=== PATIENT | male | born 1985 | race American Indian/Alaskan Native ===

== ENCOUNTER 2018-02-09 13:29 | Emergency (ER) | payer SELFPAY ==
[~2018-02-09 13:29] MED LIST: AMIDATE IV ONE; QUELICIN IV ONE
[2018-02-09] MEDS ORDERED: KEPPRA 1,000 MG/NS 0.75% 100ML 1,000 MG/100 ML BAG IV ONE ×2 (13:38→13:48)
[2018-02-09] MEDS ORDERED: NACL 0.9% 1000 ML 1,000 ML IV ONE ×2 (13:43→17:06)
[2018-02-09] MEDS ORDERED: VASELINE LIP THERAPY TP PRN (13:46)
[2018-02-09] MEDS ORDERED: ARTIFICIAL TEARS OPHTH OINT OU PRN (13:46)
[2018-02-09] MEDS ORDERED: ATIVAN ONE (14:00)
[2018-02-09] MEDS ORDERED: ATIVAN 100 MG in NACL 0.9% 50 ML, VIAFLEX EMPTY CONTAINER 0 ML IV SCH (14:00)
[2018-02-09] MEDS ORDERED: ATIVAN IM ONE (14:10)
[2018-02-09] MEDS ORDERED: ATIVAN IV ONE (14:17)
--- NOTE | 2018-02-09 14:36 | Emergency Department Report ---
ED Seizure HPI - General Stated Complaint: SEIZURE Time Seen by Provider: 02/09/18 13:43 Source: patient Mode of arrival: Stretcher Limitations: Other - History of Present Illness Initial Comments: 32-year-old male was called into the emergency department for persistent seizures by network development coordinator staff. He did not respond to Ativan. Medic states that the patient has been previously intubated for status epilepticus. In the field his sugar, pulse oximetry and blood pressure were within acceptable limits. The patient had a nasal trumpet placed and was transported on a nonrebreather mask. Paramedics did not report to me significant hypoxia. There was no known history of trauma. A family member has now arrived to give additional history. He states that the patient has been intubated at least 3 times under similar circumstances. MD Complaint: seizure -: Sudden Description of Episode: loss of consciousness -: minutes(s) (possibly an hour) Witnessed:: Yes Trauma: No Seizure History: known seizure disorder, history of non-compliance Possible Precipitating Event: other (noncompliance) Associated Symptoms: other (unable to obtain) Treatments Prior to Arrival: benzodiazepines, airway maneuvers, other (Ativan) - Related Data Allergies Allergy/AdvReac Type Severity Reaction Status Date / Time No Known Allergies Allergy Verified 02/09/18 14:00 ED Review of Systems ROS: Stated complaint: SEIZURE Other details as noted in HPI Comment: Unobtainable due to pts medical conditions ED Past Medical Hx - Past Medical History Previous Medical History?: Yes Hx Seizures: Yes Additional medical history: Multiple Sclerosis - Surgical History Past Surgical History?: Yes Additional Surgical History: Mass on chest per father - Social History Smoking Status: Never Smoker Substance Use Type: Marijuana ED Physical Exam - General Limitations: Other (active seizure) General appearance: obtunded, other (patient's airway required protection, significant secretions was suctioned) - Head Head exam: Present: atraumatic - Eye Eye exam: Absent: scleral icterus Pupils: Present: miosis - ENT ENT exam: Present: other (no gross trauma noted, some loose dentition) - Neck Neck exam: Present: normal inspection. Absent: meningismus - Respiratory Respiratory exam: Present: rhonchi (bilaterally left greater than right) - Cardiovascular Cardiovascular Exam: Present: tachycardia. Absent: systolic murmur, diastolic murmur - GI/Abdominal GI/Abdominal exam: Present: soft. Absent: distended, organomegaly - Extremities Exam Extremities exam: Present: normal inspection - Back Exam Back exam: Present: other (only partially visualized) - Neurological Exam Neurological exam: Present: other (activity ictus) - Psychiatric Psychiatric exam: Present: other (not applicable) - Skin Skin exam: Present: diaphoretic ED Course Vital Signs 02/09/18 02/09/18 02/09/18 13:46 14:03 15:35 Temperature 99 F Pulse Rate 140 H 146 H 145 H Respiratory 18 Rate Blood Pressure 123/81 118/68 O2 Sat by Pulse 100 100 100 Oximetry - Reevaluation(s) Reevaluation #1: The patient was still actively seizing on arrival. He was intubated using RSI for status epilepticus as well as airway protection. This was done after one attempt without difficulty. He was given Ativan and placed on an Ativan drip. He was given a gram of Keppra. The seizures didn't stop. He is currently intubated and will remain as such pending ICU placement. A CT of the head was reviewed in real-time by me and later interpreted by the radiologist as showing no acute process. Dr. Conroy of the hospitalist service was notified of the admission. 02/09/18 15:00 Reevaluation #2: History was obtained from the patient's father. Apparently the patient's last intubation was about 5 months ago in [place]. The father thinks it was for 2 days. The patient has been noncompliant with his medicine for more 3 weeks according to the father. He has been well. He has not been complaining of headaches or change in his vision. However he has had a diagnosis of local sclerosis since he was about 18. The father states that he thinks that the multiple sclerosis has been quiet for the last 4-5 years. However, patient has been on medicine for multiple sclerosis in the past. He is not currently on steroids. Father doesn't identify any diagnosis of active and ms during the last intubation and seizure breakthrough. However, he did have prolonged intubation for at least 2 days. Further history is not available and the patient's neurologist is in [facility]. I spoke with Dr. Christiano Tobar at the [facility]. He suggested a transfer to [place] [facility] ICU for continuous EEG monitoring. The patient was noted to be clamping down on his tube. I believe he still has active icterus. His pupils are somewhat myotic and his gaze is fixed. He does have occasional clonic movement. 02/09/18 15:51 Reevaluation #3: I spoke with Dr. Winchester neuro [employer] school home economics teacher at every. He was kind to accept the patient for transfer. The patient will be transferred via helicopter to either [place] or [facility]. He is given additional Keppra. Propofol was added. His respiratory acidosis is being addressed. A repeat blood gas will be obtained. 02/09/18 16:07 ED Medical Decision Making - Lab Data Result diagrams: 02/09/18 14:09 02/09/18 14:09 Laboratory Results - last 24 hr 02/09/18 13:48 POC Glucose 141 H Laboratory Results - last 24 hr 02/09/18 02/09/18 13:48 14:09 WBC 12.7 H RBC 4.95 Hgb 14.2 Hct 43.6 MCV 88 MCH 29 MCHC 33 RDW 14.3 Plt Count 187 Lymph % (Auto) 8.9 L Cottle % (Auto) 7.8 H Eos % (Auto) 0.2 Baso % (Auto) 0.1 Lymph # 1.1 L Cottle # 1.0 H Eos # 0.0 Baso # 0.0 Add Manual Diff Complete Seg Neutrophils % 83.0 H Seg Neutrophils # 10.6 H POC Glucose 141 H Laboratory Results - last 24 hr 02/09/18 02/09/18 02/09/18 13:48 14:09 14:09 WBC 12.7 H RBC 4.95 Hgb 14.2 Hct 43.6 MCV 88 MCH 29 MCHC 33 RDW 14.3 Plt Count 187 Lymph % (Auto) 8.9 L Cottle % (Auto) 7.8 H Eos % (Auto) 0.2 Baso % (Auto) 0.1 Lymph # 1.1 L Cottle # 1.0 H Eos # 0.0 Baso # 0.0 Add Manual Diff Complete Seg Neutrophils % 83.0 H Seg Neutrophils # 10.6 H PT INR APTT Thrombin Time Sodium Potassium Chloride Carbon Dioxide Anion Gap BUN Creatinine Estimated GFR BUN/Creatinine Ratio Glucose POC Glucose 141 H Calcium Magnesium Total Bilirubin Direct Bilirubin Indirect Bilirubin AST ALT Alkaline Phosphatase Total Creatine Kinase 150 CK-MB (CK-2) 2.3 CK-MB (CK-2) Rel Index 1.5 Troponin T < 0.010 NT-Pro-B Natriuret Pep Total Protein Albumin Albumin/Globulin Ratio Urine Color Urine Turbidity Urine pH Ur Specific [place] Urine Protein Urine Glucose (UA) Urine Ketones Urine Blood Urine Nitrite Urine Bilirubin Urine Urobilinogen Ur Leukocyte Esterase Urine WBC (Auto) Urine RBC (Auto) U Epithel Cells (Auto) Granular Casts Urine Opiates Screen Urine Methadone Screen Ur Barbiturates Screen Ur Phencyclidine Scrn Ur Amphetamines Screen U Benzodiazepines Scrn Urine Cocaine Screen U Marijuana (THC) Screen Plasma/Serum Alcohol 02/09/18 02/09/18 02/09/18 14:09 14:09 14:09 WBC RBC Hgb Hct MCV MCH MCHC RDW Plt Count Lymph % (Auto) Cottle % (Auto) Eos % (Auto) Baso % (Auto) Lymph # Cottle # Eos # Baso # Add Manual Diff Seg Neutrophils % Seg Neutrophils # PT INR APTT Thrombin Time Sodium 141 Potassium 4.0 Chloride 104.2 Carbon Dioxide 21 L Anion Gap 20 BUN 8 L Creatinine 0.6 L Estimated GFR > 60 BUN/Creatinine Ratio 13 Glucose 107 H POC Glucose Calcium 8.7 Magnesium 2.20 Total Bilirubin 0.70 Direct Bilirubin < 0.2 Indirect Bilirubin 0.5 AST 18 ALT 8 Alkaline Phosphatase 57 Total Creatine Kinase CK-MB (CK-2) CK-MB (CK-2) Rel Index Troponin T NT-Pro-B Natriuret Pep 81.18 Total Protein 7.5 Albumin 4.1 Albumin/Globulin Ratio 1.2 Urine Color Urine Turbidity Urine pH Ur Specific [place] Urine Protein Urine Glucose (UA) Urine Ketones Urine Blood Urine Nitrite Urine Bilirubin Urine Urobilinogen Ur Leukocyte Esterase Urine WBC (Auto) Urine RBC (Auto) U Epithel Cells (Auto) Granular Casts Urine Opiates Screen Urine Methadone Screen Ur Barbiturates Screen Ur Phencyclidine Scrn Ur Amphetamines Screen U Benzodiazepines Scrn Urine Cocaine Screen U Marijuana (THC) Screen Plasma/Serum Alcohol < 0.01 02/09/18 02/09/18 02/09/18 14:18 14:18 14:56 WBC RBC Hgb Hct MCV MCH MCHC RDW Plt Count Lymph % (Auto) Cottle % (Auto) Eos % (Auto) Baso % (Auto) Lymph # Cottle # Eos # Baso # Add Manual Diff Seg Neutrophils % Seg Neutrophils # PT 14.7 INR 1.09 APTT 28.6 Thrombin Time 17.5 Sodium Potassium Chloride Carbon Dioxide Anion Gap BUN Creatinine Estimated GFR BUN/Creatinine Ratio Glucose POC Glucose Calcium Magnesium Total Bilirubin Direct Bilirubin Indirect Bilirubin AST ALT Alkaline Phosphatase Total Creatine Kinase CK-MB (CK-2) CK-MB (CK-2) Rel Index Troponin T NT-Pro-B Natriuret Pep Total Protein Albumin Albumin/Globulin Ratio Urine Color Yellow Urine Turbidity Hazy Urine pH 5.0 Ur Specific [place] 1.012 Urine Protein 30 mg/dl Urine Glucose (UA) Neg Urine Ketones Neg Urine Blood Neg Urine Nitrite Neg Urine Bilirubin Neg Urine Urobilinogen < 2.0 Ur Leukocyte Esterase Neg Urine WBC (Auto) 3.0 Urine RBC (Auto) 1.0 U Epithel Cells (Auto) 2.0 Granular Casts 3 Urine Opiates Screen Presumptive negative Urine Methadone Screen Presumptive negative Ur Barbiturates Screen Presumptive negative Ur Phencyclidine Scrn Presumptive negative Ur Amphetamines Screen Presumptive negative U Benzodiazepines Scrn Presumptive negative Urine Cocaine Screen Presumptive negative U Marijuana (THC) Screen Presumptive positive Plasma/Serum Alcohol - Radiology Data Radiology results: report reviewed interpreted by me: Received call from [email or web address]. CT of the head showed no acute process His head CT per radiologist. A chest x-ray showed endotracheal tube at the level of the clavicle a few centimeters above the horacio. No acute cardiopulmonary process noted. Critical Care Time: Yes Critical care time in (mins) excluding proc time.: 90 Critical care attestation.: If time is entered above; I have spent that time in minutes in the direct care of this critically ill patient, excluding procedure time. ED Disposition Clinical Impression: Status epilepticus, Respiratory acidosis Disposition: DC/TX-70 ANOTHER TYPE HLTHCARE Is pt being admited?: No Does the pt Need Aspirin: No Condition: Stable Time of Disposition: 16:11
[2018-02-09 14:57] LABS: Hematocrit 43.6 % (35.5-45.6); Hemoglobin 14.2 gm/dl (11.8-15.2); Lymphocytes % (Auto) 8.9 % (13.4-35.0); Mean Corpuscular HGB Conc 33 % (32-34); Mean Corpuscular Hemoglobin 29 pg (28-32); Mean Corpuscular Volume 88 fl (84-94); Monocytes % (Auto) 7.8 % (0.0-7.3); Platelet Count 187 K/mm3 (140-440); Red Blood Count 4.95 M/mm3 (3.65-5.03); Red Cell Distribution Width 14.3 % (13.2-15.2)
[2018-02-09 14:58] LABS: Basophils % (Auto) 0.1 % (0.0-1.8); Eosinophils % (Auto) 0.2 % (0.0-4.3); Lymphocytes # (Auto) 1.1 K/mm3 (1.2-5.4)
--- NOTE | 2018-02-09 14:58 | Cat Scan Report ---
FINAL REPORT EXAM: CT HEAD/BRAIN WO CON HISTORY: Stroke symptoms/SZ TECHNIQUE: CT of the head was performed without intravenous contrast. PRIORS: None. FINDINGS: The ventricles are normal in shape and position. The ventricles are nondilated. No intracranial hemorrhage, mass, mass effect, midline shift or evidence of acute ischemic infarct. The basilar cisterns are patent. The paranasal sinuses are clear. The extracranial soft tissues demonstrate no abnormality. The calvarium is intact. The orbits are intact. The mastoid air cells are clear. IMPRESSION: No acute intracranial abnormality.
[2018-02-09 15:11] LABS: Bilirubin,Urine NEG (Negative); Blood,Urine NEG (Negative); Color,Urine Yellow (Yellow); Granular Casts,Urine 3 /LPF; Urobilinogen,Urine < 2.0 mg/dL (<2.0)
[2018-02-09] MEDS ORDERED: DIPRIVAN 10 MG/ML 1,000 MG/100 ML BOTTLE IV SCH (15:15)
[2018-02-09] MEDS ORDERED: ZEMURON IV ONE ×2 (15:15→15:52)
[2018-02-09 15:16] LABS: BUN/Creatinine Ratio 13; Blood Urea Nitrogen 8 mg/dL (9-20); Calcium 8.7 mg/dL (8.4-10.2); Hemolysis Index 17
[2018-02-09 15:16] LABS: Amphetamine Screen,Urine PRESUMPTIVE NEGATIVE; Benzodiazepines Screen,Urine PRESUMPTIVE NEGATIVE; Cocaine Screen,Urine PRESUMPTIVE NEGATIVE; Methadone Screen,Urine PRESUMPTIVE NEGATIVE; Opiate Screen,Urine PRESUMPTIVE NEGATIVE
[2018-02-09 15:19] LABS: Creatine Kinase MB 2.3 ng/mL (0.0-4.0)
[2018-02-09] MEDS ORDERED: DIPRIVAN 10 MG/ML 1,000 MG/100 ML BOTTLE IV ONE (15:21)
[2018-02-09 15:22] LABS: Alanine Aminotransferase 8 units/L (7-56); Albumin 4.1 g/dL (3.9-5)
[2018-02-09 15:25] LABS: Bilirubin,Direct < 0.2 mg/dL (0-0.2)
[2018-02-09 15:32] LABS: INR 1.09 (0.87-1.13)
[2018-02-09 15:33] LABS: Partial Thromboplastin Time 28.6 Sec. (24.2-36.6); Thrombin Time 17.5 Sec. (15.1-19.6)
[2018-02-09 15:37] LABS: Cannabinoid Screen,Urine PRESUMPTIVE POSITIVE
[2018-02-09] MEDS ORDERED: AMIDATE IV ONE ×3 (15:52→18:18)
[2018-02-09] MEDS ORDERED: QUELICIN ONE ×2 (15:52→18:18)
--- NOTE | 2018-02-09 16:14 | XRay Report ---
FINAL REPORT EXAM: XR CHEST 1V AP HISTORY: intubation placement TECHNIQUE: Frontal chest x-ray. PRIORS: None currently available. FINDINGS: Cardiac silhouette is within normal limits. There is no effusion. There is no pneumothorax. There is no consolidation. There are no suspicious osseous lesions. Tip of the endotracheal tube is approximately 8.7 cm with horacio. Recommend repositioning at 5 cm above the horacio. IMPRESSION: No acute cardiopulmonary findings. Recommend repositioning of the endotracheal tube. Oh level II non-urgent reporting initiated.
[2018-02-09] MEDS ORDERED: QUELICIN IV ONE (16:20)
[2018-02-09 17:22] VITALS: BP 121/75
--- NOTE | 2018-02-09 17:32 | XRay Report ---
FINAL REPORT EXAM: XR CHEST 1V AP HISTORY: ETT placement TECHNIQUE: Frontal chest radiograph. PRIORS: 02/09/2018. FINDINGS: The left lateral aspect of the chest was not completely included on the study. The endotracheal tube tip projects in the mid thoracic trachea. The cardiomediastinal silhouette is normal. Increased patchy left lower lobe opacities are seen. No pleural effusion. No pneumothorax. No acute osseous abnormality. IMPRESSION: 1. Endotracheal tube tip projecting in the mid thoracic trachea. 2. Increased left lower lobe atelectasis.
--- NOTE | 2018-02-09 17:33 | XRay Report ---
FINAL REPORT EXAM: XR CHEST 1V AP HISTORY: tube reposition TECHNIQUE: Frontal chest radiograph. PRIORS: Earlier today. FINDINGS: The endotracheal tube is unchanged with the tip projecting in the mid thoracic trachea. The cardiomediastinal silhouette is normal. Unchanged left lower lobe atelectasis. No pleural effusion. No pneumothorax. No acute osseous abnormality. IMPRESSION: 1. Endotracheal tube tip again projecting in the mid thoracic trachea. 2. Unchanged left lower lobe atelectasis.
== END 2018-02-09 17:30 | disposition other institution (70) ==
LOC: ED 13:29
DX: G40.901 Epilepsy, unspecified, not intractable, with status epilepticus (principal); E87.2 Acidosis; F12.10 Cannabis abuse, uncomplicated; G35 Multiple sclerosis
CPT/HCPCS: 36415; 70450; 71045; 80048; 80074; 80307; 81001; 82550; 82553; 82803; 82962; 83735; 83880; 84484; 85025; 85610; 85670; 85730; 87070; 87205; 96365; 96375; 99291; G0480; J0330; J1953; J2060; J2704; J7030; 80320; 94002

== ENCOUNTER 2019-07-29 08:52 | Emergency (ER) | payer SELFPAY ==
[2019-07-29 09:06] VITALS: BP 111/64
--- NOTE | 2019-07-29 10:37 | Emergency Department Report ---
ED Medical Clearance HPI - General Chief complaint: Medical Clearance Stated complaint: SEIZURE MEDS Time Seen by Provider: 07/29/19 10:31 Source: patient Mode of arrival: Ambulatory - History of Present Illness Initial comments: Chief complaint: I just need a refill of my seizure medication. HPI: Mr. Merino is a 33-year-old male with history of seizures and multiple sclerosis who requires Keppra and Vimpat for seizure control. He does not have any other physical complaints or concerns. MD Complaint: other (request of Keppra and vimpat) Traumatic Symptoms: other (no other concerns) Home medications: Previous Rx's Medication Instructions Recorded Last Taken Type Lacosamide [Vimpat] 100 mg PO Q12HR #60 tablet 07/29/19 Unknown Rx levETIRAcetam [Keppra TAB] 3 tab PO BID #180 tablet 07/29/19 Unknown Rx Allergies/Adverse reactions: Allergies Allergy/AdvReac Type Severity Reaction Status Date / Time No Known Allergies Allergy Verified 02/09/18 14:00 ED Review of Systems ROS: Stated complaint: SEIZURE MEDS Other details as noted in HPI Constitutional: denies: fever, malaise Cardiovascular: denies: chest pain Gastrointestinal: denies: abdominal pain Neurological: denies: headache ED Past Medical Hx - Past Medical History Previous Medical History?: Yes Hx Seizures: Yes Additional medical history: Multiple Sclerosis - Surgical History Past Surgical History?: No Additional Surgical History: Mass on chest per father - Social History Smoking Status: Never Smoker Substance Use Type: Marijuana - Medications Home Medications: Home Medications Medication Instructions Recorded Confirmed Last Taken Type Lacosamide [Vimpat] 100 mg PO Q12HR #60 tablet 07/29/19 Unknown Rx levETIRAcetam [Keppra TAB] 3 tab PO BID #180 tablet 07/29/19 Unknown Rx ED Physical Exam - General Limitations: No Limitations General appearance: alert, in no apparent distress - Head Head exam: Present: atraumatic, normocephalic - Respiratory Respiratory exam: Absent: respiratory distress - Neurological Exam Neurological exam: Present: alert, oriented X3, normal gait - Psychiatric Psychiatric exam: Present: normal affect, normal mood ED Course Vital Signs 07/29/19 09:05 Temperature 98 F Pulse Rate 88 Respiratory 16 Rate Blood Pressure 111/64 [Left] O2 Sat by Pulse 100 Oximetry ED Medical Decision Making - Medical Decision Making I have prescribed 90 day supply of both Keppra and Vimpat. This gentleman had his prescription bottles. His prescriptions appear to have been filled in [place]. ED Disposition Clinical Impression: Medication refill, Seizure disorder Disposition: DC- TO HOME OR SELFCARE Is pt being admited?: No Does the pt Need Aspirin: No Condition: Stable Additional Instructions: Please make an appointment with our doctor within the next few weeks Prescriptions: levETIRAcetam [Keppra TAB] 3 tab PO BID #180 tablet Lacosamide [Vimpat] 100 mg PO Q12HR #60 tablet Referrals: EMILY FRAZIER MD [Staff Physician] - 3-5 Days
== END 2019-07-29 11:05 | disposition home or self-care (01) ==
LOC: ED 08:52
DX: G40.909 Epilepsy, unspecified, not intractable, without status epilepticus (principal); F12.10 Cannabis abuse, uncomplicated; Z76.0 Encounter for issue of repeat prescription; Z98.890 Other specified postprocedural states; Z79.899 Other long term (current) drug therapy
CPT/HCPCS: 99281

== ENCOUNTER 2020-11-18 06:20 | Inpatient (IN) | payer MEDICAID ==
[2020-11-18] MEDS ORDERED: SODIUM CHLORIDE 0.9% 1000 ML 1,000 ML IV ONE ×5 (06:28→20:09)
[2020-11-18] MEDS ORDERED: levETIRAcetam 1000 MG/NS 0.75% 1,000 MG/100 ML BAG IV ONE (06:31)
--- NOTE | 2020-11-18 06:33 | Emergency Department Report ---
HPI - General Chief Complaint: Seizure Time Seen by Provider: 11/18/20 06:26 - HPI HPI: Room 1 The patient is a 35-year-old male present with a chief complaint of seizures. Patient came from home for report of seizures. EMS administered 2 mg Ativan and then 2 mg of Versed on route to the ED. At the time of arrival to the ED the patient was no longer seizing. Patient is currently postictal. Patient takes Keppra for seizures per EMS ED Past Medical Hx - Past Medical History Hx Seizures: Yes Additional medical history: Multiple Sclerosis,Takes 1000mg of Keppra - Surgical History Additional Surgical History: Mass on chest per father - Family History Family history: no significant - Social History Smoking Status: Unknown if ever smoked Substance Use Type: None - Medications Home Medications: Home Medications Medication Instructions Recorded Confirmed Last Taken Type Lacosamide [Vimpat] 100 mg PO Q12HR #60 tablet 09/08/19 Unknown Rx levETIRAcetam [Keppra TAB] 3 tab PO BID #180 tablet 09/08/19 Unknown Rx levoFLOXacin [Levaquin] 750 mg PO QDAY #5 tablet 09/08/19 Unknown Rx ED Review of Systems ROS: Stated complaint: SEIZURE Other details as noted in HPI Comment: Unobtainable due to pts medical conditions (Postictal) Physical Exam - Physical Exam Vital Signs: Vital Signs 11/18/20 06:27 Pulse Rate 133 H Respiratory 18 Rate Blood Pressure 128/70 [Right] O2 Sat by Pulse 100 Oximetry Physical Exam: GENERAL: The patient is well-developed well-nourished male postictal lying on stretcher. [] HEENT: Normocephalic. Atraumatic. Patient has moist mucous membranes. NECK: Supple. Trachea midline CHEST/LUNGS: Clear to auscultation. There is no respiratory distress noted. HEART/CARDIOVASCULAR: Regular. There is tachycardia. There is no gallop rub or murmur. ABDOMEN: Abdomen is soft, nontender. Patient has normal bowel sounds. There is no abdominal distention. SKIN: There is no rash. There is no edema. There is no diaphoresis. NEURO: The patient is postictal/unresponsive MUSCULOSKELETAL: There is no evidence of acute injury. ED Course Vital Signs 11/18/20 06:27 Pulse Rate 133 H Respiratory 18 Rate Blood Pressure 128/70 [Right] O2 Sat by Pulse 100 Oximetry ED Medical Decision Making - Lab Data Result diagrams: 11/18/20 07:05 11/18/20 07:09 Laboratory Tests 11/18/20 11/18/20 11/18/20 07:05 07:09 07:09 WBC 12.0 H RBC 5.04 H Hgb 14.4 Hct 42.9 MCV 85 MCH 29 MCHC 34 RDW 14.1 Plt Count 154 Lymph % (Auto) 2.2 L Baxter % (Auto) 8.5 H Eos % (Auto) 0.0 Baso % (Auto) 0.3 Lymph # (Auto) 0.3 L [place] # (Auto) 1.0 H Eos # (Auto) 0.0 Baso # (Auto) 0.0 Seg Neutrophils % 89.0 H Seg Neutrophils # 10.7 H Sodium 140 Potassium 3.7 Chloride 105.8 Carbon Dioxide 24 Anion Gap 14 BUN 13 Creatinine 0.8 Estimated GFR > 60 BUN/Creatinine Ratio 16 Glucose 66 L Calcium 8.3 L Magnesium 2.10 Total Creatine Kinase 200 H TSH Free T4 Urine Color Urine Turbidity Urine pH Ur Specific [place] Urine Protein Urine Glucose (UA) Urine Ketones Urine Blood Urine Nitrite Urine Bilirubin Urine Urobilinogen Ur Leukocyte Esterase Urine WBC (Auto) Urine RBC (Auto) 11/18/20 11/18/20 07:09 10:50 WBC RBC Hgb Hct MCV MCH MCHC RDW Plt Count Lymph % (Auto) [place] % (Auto) Eos % (Auto) Baso % (Auto) Lymph # (Auto) [place] # (Auto) Eos # (Auto) Baso # (Auto) Seg Neutrophils % Seg Neutrophils # Sodium Potassium Chloride Carbon Dioxide Anion Gap BUN Creatinine Estimated GFR BUN/Creatinine Ratio Glucose Calcium Magnesium Total Creatine Kinase TSH 1.730 Free T4 1.19 Urine Color Straw Urine Turbidity Clear Urine pH 6.0 Ur Specific [place] 1.009 Urine Protein <15 mg/dl Urine Glucose (UA) Neg Urine Ketones 20 Urine Blood Sm Urine Nitrite Neg Urine Bilirubin Neg Urine Urobilinogen < 2.0 Ur Leukocyte Esterase Neg Urine WBC (Auto) 1.0 Urine RBC (Auto) 1.0 - EKG Data -: EKG Interpreted by Tn EKG shows normal: sinus rhythm Rate: tachycardia (146 bpm) - EKG Data When compared to previous EKG there are: previous EKG unavailable Interpretation: other (No ischemic changes seen) - Differential Diagnosis Seizure Critical care attestation.: If time is entered above; I have spent that time in minutes in the direct care of this critically ill patient, excluding procedure time. ED Disposition Clinical Impression: Seizures, Postictal state, Fever, Tachycardia Disposition: OP ADMIT IP TO THIS HOSP Is pt being admited?: Yes Does the pt Need Aspirin: No Condition: Fair Time of Disposition: 11:28 (Hospitalist notified (Dr Tillman))
[2020-11-18 07:36] LABS: Basophils % (Auto) 0.3 % (0.0-1.8); Hematocrit 42.9 % (35.5-45.6); Hemoglobin 14.4 gm/dl (11.8-15.2); Lymphocytes # (Auto) 0.3 K/mm3 (1.2-5.4); Lymphocytes % (Auto) 2.2 % (13.4-35.0); Mean Corpuscular HGB Conc 34 % (32-34); Mean Corpuscular Volume 85 fl (84-94); Monocytes % (Auto) 8.5 % (0.0-7.3); Platelet Count 154 K/mm3 (140-440); Red Blood Count 5.04 M/mm3 (3.65-5.03); Red Cell Distribution Width 14.1 % (13.2-15.2)
[2020-11-18 07:42] LABS: BUN/Creatinine Ratio 16; Blood Urea Nitrogen 13 mg/dL (9-20); Calcium 8.3 mg/dL (8.4-10.2); Hemolysis Index 18
[2020-11-18 08:02] LABS: Free T4 (Free Thyroxine) 1.19 ng/dL (0.76-1.46)
--- NOTE | 2020-11-18 08:48 | Cat Scan Report ---
CT HEAD WITHOUT CONTRAST INDICATION / CLINICAL INFORMATION: Seizures. TECHNIQUE: Axial imaging performed from the skull apex through the skull base without the use of cont rast. Sagittal and coronal reformatted images. All CT scans at this location are performed using CT dose reduction for ALARA by means of automated exposure control. COMPARISON: 09/05/2019. FINDINGS: CEREBRAL PARENCHYMA: No significant abnormality. No acute territorial infarct. Mild diffuse cortical volume loss is suspected and unchanged which appears advanced for this person's age. HEMORRHAGE: None. EXTRA-AXIAL SPACES: Normal in size and morphology for the patient's age. VENTRICULAR SYSTEM: Normal in size and morphology for the patient's age. MIDLINE SHIFT OR HERNIATION: None. CEREBELLUM / BRAINSTEM: No significant abnormality. CALVARIUM: No significant abnormality. ORBITS: Normal as visualized. PARANASAL SINUSES / MASTOID AIR CELLS: Normal as visualized. SOFT TISSUES of HEAD: No significant abnormality. ADDITIONAL FINDINGS: None. IMPRESSION: No acute intracranial abnormality. Mild diffuse cortical volume loss which is stable but appears adva nced for this person's age. No acute change is appreciated since 09/05/2019 exam. Signer Name: Lavelle Vizcarra Jr, MD Signed: 11/18/2020 8:44 AM Workstation Name: [id number]
[2020-11-18] MEDS ORDERED: ACETAMINOPHEN 650 MG RECT SUPP PR ONE (09:13)
--- NOTE | 2020-11-18 10:52 | Electrocardiograph Report ---
[facility] Test Date: 2020-11-18 Test Time: 06:25:50 Pat Name: BENNIE CUEVAS Department: Room: Gender: M Catheterization Laboratory Technician: MARCELO : 1985 Requested By: ARIELLE NEGRON Order Number: [id number] Reading MD: Richard Ordonez Measurements Intervals [place] Rate: 146 P: 82 ME: 133 QRS: 74 QRSD: 72 T: -81 QT: 269 QTc: 419 Interpretive Statements Sinus tachycardia No previous ECG available for comparison Electronically Signed On 11-18-2020 10:52:29 EDT by Richard Ordonez
[2020-11-18 11:11] LABS: Bilirubin,Urine NEG (Negative); Blood,Urine SM (Negative); Color,Urine Straw (Yellow); Protein,Urine <15 mg/dL mg/dL (Negative); Urobilinogen,Urine < 2.0 mg/dL (<2.0)
[2020-11-18] MEDS ORDERED: PIPERACIL/TAZOBACTA 4.5/NS 100 4.5 GM/100 ML VIAL IV ONE (11:15)
[2020-11-18] MEDS ORDERED: MORPHINE 2 MG/1 ML INJ IV PRN (12:15)
[2020-11-18] MEDS ORDERED: ONDANSETRON 4 MG/2 ML INJ IV PRN (12:15)
[2020-11-18] MEDS ORDERED: MORPHINE 4 MG/1 ML INJ IV PRN (12:15)
[2020-11-18] MEDS ORDERED: NALOXONE 0.4 MG/1 ML INJ IV PRN (12:15)
[2020-11-18] MEDS ORDERED: LORazepam 2 MG/ML VIAL IV PRN (12:38)
--- NOTE | 2020-11-18 13:40 | XRay Report ---
CHEST 1 VIEW 11/18/2020 8:03 AM INDICATION / CLINICAL INFORMATION: Tachycardia. COMPARISON: 09/05/2019 FINDINGS: SUPPORT DEVICES: None. HEART / MEDIASTINUM: No significant abnormality. LUNGS / PLEURA: No significant pulmonary or pleural abnormality. No pneumothorax. ADDITIONAL FINDINGS: No significant additional findings. IMPRESSION: 1. No acute findings. Signer Name: Kannan Bone MD Signed: 11/18/2020 1:35 PM Workstation Name: [id number]
[2020-11-18] MEDS: VANCOMYCIN/NS 1 GM/250 ML 1 GM/250 ML BAG IV SCH (13:47)
--- NOTE | 2020-11-18 14:58 | History and Physical Report ---
History of Present Illness Date of examination: 11/18/20 Date of admission: 11/18/20 12:15 Chief complaint: Status epilepticus History of present illness: 35-year-old -[place] male with past medical history of multiple sclerosis, and epilepsy who presents with acute seizures. Spoke with the father, mother states this morning, he saw the patient and patient was seizing, EMS was called, patient was given 2 mg of Ativan and 2 mg of midazolam until seizures ceased after 30 minutes. Patient was transferred to [facility] where he was found to be tachycardic, EKG with heart rate of 146, no ischemia. Patient was febrile of 102. Patient was placed on IV Keppra. According to the father, patient is compliant with his seizure medications. Patient met sepsis protocol, patient placed on IV antibiotics, Zosyn and vancomycin and given fluids. Covid swab is pending, isolation precautions for now. Patient will be transferred to the MICU for close monitoring and placed on seizure precautions. Past History Past Medical History: other (Epilepsy, multiple sclerosis) Past Surgical History: Other (Cannot obtain due to patient's mental condition) Social history: other (Can obtain due to patient's mental condition) Family history: no significant family history Medications and Allergies Allergies Allergy/AdvReac Type Severity Reaction Status Date / Time No Known Allergies Allergy Verified 02/09/18 14:00 Home Medications Medication Instructions Recorded Confirmed Last Taken Type Lacosamide [Vimpat] 100 mg PO Q12HR #60 tablet 09/08/19 Unknown Rx levETIRAcetam [Keppra TAB] 3 tab PO BID #180 tablet 09/08/19 11/18/20 Unknown Rx Active Meds: Active Medications Acetaminophen (Acetaminophen 325 Mg Tab) 650 mg PO Q4H PRN PRN Reason: Pain MILD(1-3)/Fever >100.5/KURTZ Heparin Sodium (Porcine) (Heparin 5,000 Unit/1 Ml Vial) 5,000 unit SUB-Q Q12HR PIERRE Piperacillin Sod/Tazobactam Sod (Zosyn/Ns 3.375gm/50ml) 3.375 gm in 50 mls @ 100 mls/hr IV Q8H PIERRE; Protocol Vancomycin HCl (Vancomycin/Ns 1 Gm/250 Ml) 1 gm in 250 mls @ 166.667 mls/hr IV Q12H PIERRE; Protocol Last Admin: 11/18/20 13:47 Dose: 166.667 mls/hr Documented by: Levetiracetam 1,500 mg/ (Dextrose) 115 mls @ 400 mls/hr IV Q12H PIERRE Dextrose/Sodium Chloride (D5ns) 1,000 mls @ 75 mls/hr IV DIRECT PIERRE Lorazepam (Lorazepam 2 Mg/Ml Vial) 2 mg IV Q2MIN PRN PRN Reason: Seizures Morphine Sulfate (Morphine 2 Mg/1 Ml Inj) 2 mg IV Q4H PRN PRN Reason: Pain, Moderate (4-6) Morphine Sulfate (Morphine 4 Mg/1 Ml Inj) 4 mg IV Q4H PRN PRN Reason: Pain , Severe (7-10) Naloxone HCl (Naloxone 0.4 Mg/1 Ml Inj) 0.1 mg IV Q2MIN PRN PRN Reason: Res Rate </= 8 or 02 SAT < 92% Ondansetron HCl (Ondansetron 4 Mg/2 Ml Inj) 4 mg IV Q8H PRN PRN Reason: Nausea And Vomiting Sodium Chloride (Sodium Chloride 0.9% 10 Ml Flush Syringe) 10 ml IV BID PIERRE Sodium Chloride (Sodium Chloride 0.9% 10 Ml Flush Syringe) 10 ml IV PRN PRN PRN Reason: LINE FLUSH Review of Systems ROS unobtainable: due to mental status Exam - Physical Exam Narrative exam: General appearance: Well nourished, sedated EENT: PERRL, dry oral mucosa, Neck: Present: supple, normal ROM, no rigidity Respiratory: bilateral CTA, negative: rales, rhonchi, wheezing Cardiovascular: Accelerated rate/rhythm, Normal S1 & S2. No gallop, rub Extremities: no ischemia, No edema, normal temperature, normal color, full range of passive motion Abdominal: soft, no tenderness, non-distended, normal bowel sounds Integumentary: Present: clear, warm, dry no wounds, no erythema noted Psychiatric: Patient is sedated Neurologic: Patient is sedated - Constitutional Vitals: Temp Pulse Resp BP Pulse Ox 102 F H 121 H 28 H 116/75 94 11/18/20 06:31 11/18/20 14:30 11/18/20 14:30 11/18/20 14:30 11/18/20 14:30 Results - Labs CBC & Chem 7: 11/18/20 07:05 11/18/20 07:09 Labs: Laboratory Last Values WBC 12.0 K/mm3 (4.5-11.0) H 11/18/20 07:05 RBC 5.04 M/mm3 (3.65-5.03) H 11/18/20 07:05 Hgb 14.4 gm/dl (11.8-15.2) 11/18/20 07:05 Hct 42.9 % (35.5-45.6) 11/18/20 07:05 MCV 85 fl (84-94) 11/18/20 07:05 MCH 29 pg (28-32) 11/18/20 07:05 MCHC 34 % (32-34) 11/18/20 07:05 RDW 14.1 % (13.2-15.2) 11/18/20 07:05 Plt Count 154 K/mm3 (140-440) 11/18/20 07:05 Lymph % (Auto) 2.2 % (13.4-35.0) L 11/18/20 07:05 [place] % (Auto) 8.5 % (0.0-7.3) H 11/18/20 07:05 Eos % (Auto) 0.0 % (0.0-4.3) 11/18/20 07:05 Baso % (Auto) 0.3 % (0.0-1.8) 11/18/20 07:05 Lymph # (Auto) 0.3 K/mm3 (1.2-5.4) L 11/18/20 07:05 [place] # (Auto) 1.0 K/mm3 (0.0-0.8) H 11/18/20 07:05 Eos # (Auto) 0.0 K/mm3 (0.0-0.4) 11/18/20 07:05 Baso # (Auto) 0.0 K/mm3 (0.0-0.1) 11/18/20 07:05 Seg Neutrophils % 89.0 % (40.0-70.0) H 11/18/20 07:05 Seg Neutrophils # 10.7 K/mm3 (1.8-7.7) H 11/18/20 07:05 Sodium 140 mmol/L (137-145) 11/18/20 07:09 Potassium 3.7 mmol/L (3.6-5.0) 11/18/20 07:09 Chloride 105.8 mmol/L (98-107) 11/18/20 07:09 Carbon Dioxide 24 mmol/L (22-30) 11/18/20 07:09 Anion Gap 14 mmol/L 11/18/20 07:09 BUN 13 mg/dL (9-20) 11/18/20 07:09 Creatinine 0.8 mg/dL (0.8-1.3) 11/18/20 07:09 Estimated GFR > 60 ml/min 11/18/20 07:09 BUN/Creatinine Ratio 16 % 11/18/20 07:09 Glucose 66 mg/dL (75-100) L 11/18/20 07:09 Calcium 8.3 mg/dL (8.4-10.2) L 11/18/20 07:09 Magnesium 2.10 mg/dL (1.7-2.3) 11/18/20 07:09 Total Creatine Kinase 200 units/L (55-170) H 11/18/20 07:09 TSH 1.730 mlU/mL (0.270-4.200) 11/18/20 07:09 Free T4 1.19 ng/dL (0.76-1.46) 11/18/20 07:09 Urine Color Straw (Yellow) 11/18/20 10:50 Urine Turbidity Clear (Clear) 11/18/20 10:50 Urine pH 6.0 (5.0-7.0) 11/18/20 10:50 Ur Specific [place] 1.009 (1.003-1.030) 11/18/20 10:50 Urine Protein <15 mg/dl mg/dL (Negative) 11/18/20 10:50 Urine Glucose (UA) Neg mg/dL (Negative) 11/18/20 10:50 Urine Ketones 20 mg/dL (Negative) 11/18/20 10:50 Urine Blood Sm (Negative) 11/18/20 10:50 Urine Nitrite Neg (Negative) 11/18/20 10:50 Urine Bilirubin Neg (Negative) 11/18/20 10:50 Urine Urobilinogen < 2.0 mg/dL (<2.0) 11/18/20 10:50 Ur Leukocyte Esterase Neg (Negative) 11/18/20 10:50 Urine WBC (Auto) 1.0 /HPF (0.0-6.0) 11/18/20 10:50 Urine RBC (Auto) 1.0 /HPF (0.0-6.0) 11/18/20 10:50 Assessment and Plan Assessment and plan: 35-year-old -[place] male who presents with status epilepticus Status epilepticus Patient given Ativan and midazolam in the field, seizures abated Patient placed on Keppra 1500 mg twice daily IV and Vimpat 100 mg IV twice daily Neurology consulted, await recommendations for medical management Critical care consulted for close monitoring, if patient continues to seize patient may need to be intubated to protect airway Dysphagia screen, patient n.p.o. at this time Sepsis with unknown etiology Patient placed on Zosyn and vancomycin Blood cultures pending Urine and urine culture pending Trend leukocytosis/CBC Fever of unknown origin Possibly secondary to status epilepticus We will obtain Covid screen with appropriate isolation History of multiple sclerosis No intervention at this time, continue to follow Hypoglycemia D5 normal saline Accu-Cheks Tachycardia Secondary to sepsis, slowly resolving with fluids Continue fluids CODE STATUS: Full DVT prophylaxis: Heparin Disposition: Continue monitoring patient for seizures. Awaiting neurology recommendations for medical management. Advance Directives: Yes VTE prophylaxis?: Chemical Plan of care discussed with patient/family: Yes
[2020-11-18] MEDS ORDERED: LACOSAMIDE 100 MG in SODIUM CHLORIDE 0.9% 100 ML IV SCH (16:00)
[2020-11-18] MEDS ORDERED: METOPROLOL TARTRATE 5 MG/5 ML INJ IV PRN (16:57)
[2020-11-18] MEDS: levETIRAcetam 1,500 MG in DEXTROSE 5% IN WATER 100 ML IV SCH (17:06)
[2020-11-18] MEDS ORDERED: LIP THERAPY VASELINE TP PRN (17:08)
[2020-11-18] MEDS ORDERED: MINERAL OIL/PETROLATUM, WHITE OPHTH OINT 3.5 GM OU PRN (17:08)
[2020-11-18] MEDS ORDERED: ETOMIDATE 20 MG/10 ML INJ IV ONE ×2 (17:16→17:45)
[2020-11-18] MEDS ORDERED: SODIUM CHLORIDE 0.9% 1000 ML 1,000 ML ONE (17:16)
[2020-11-18] MEDS ORDERED: SUCCINYLCHOLINE CHLORIDE 200 MG/10 ML INJ MDV ONE (17:17)
[2020-11-18] MEDS ORDERED: propofoL 200 MG/20 ML VIAL IV ONE (17:18)
[2020-11-18 17:28] LABS: Basophils % (Auto) 0.1 % (0.0-1.8); Hematocrit 45.7 % (35.5-45.6); Hemoglobin 15.4 gm/dl (11.8-15.2); Lymphocytes # (Auto) 0.4 K/mm3 (1.2-5.4); Mean Corpuscular HGB Conc 34 % (32-34); Mean Corpuscular Volume 85 fl (84-94); Monocytes # (Auto) 0.7 K/mm3 (0.0-0.8); Monocytes % (Auto) 6.9 % (0.0-7.3); Platelet Count 120 K/mm3 (140-440); Red Blood Count 5.41 M/mm3 (3.65-5.03); Red Cell Distribution Width 14.2 % (13.2-15.2)
[2020-11-18] MEDS ORDERED: SUCCINYLCHOLINE CHLORIDE 200 MG/10 ML INJ MDV IV ONE (17:45)
--- NOTE | 2020-11-18 17:45 | Event Note ---
Date: 11/18/20 I was requested to perform elective intubation on this patient with status epilepticus/tachycardia and respiratory distress. Procedure note: Endotracheal intubation Patient was given a bolus of IV fluid in preparation for intubation. He was tachycardic as blood pressure was below 120 systolic. He was given 12 mg of etomidate and 120 mg of succinylcholine. He was intubated utilizing direct laryngoscopy. The tube was secured at 22 cm at the teeth. Positive color change on colorimetric CO2 to right yellow. Bilateral breath sounds are noted. Post intubation chest x-ray is pending. Propofol ordered for sedation. Post intubation blood pressure was 150/90. Hospitalist present after intubation.
--- NOTE | 2020-11-18 18:26 | XRay Report ---
CHEST 1 VIEW 11/18/2020 5:17 PM INDICATION / CLINICAL INFORMATION: ETT placement. COMPARISON: 11/18/2020 FINDINGS: SUPPORT DEVICES: Interval placement of endotracheal tube with tip at the level of the clavicles, sati sfactory position. Interval placement of gastric tube with radiolucent marker approximately 1-2 cm be yond the gastroesophageal junction. HEART / MEDIASTINUM: Stable. LUNGS / PLEURA: Mild scattered pulmonary opacities and interstitial prominence is more apparent when compared to this morning's radiograph. No significant effusion. No pneumothorax. ADDITIONAL FINDINGS: No significant additional findings. IMPRESSION: 1. Satisfactory appearance of the endotracheal tube without evidence of acute complication. 2. Subtle airspace disease not present on this morning's radiograph. Findings are concerning for atyp ical/viral pneumonia. 3. Gastric tube radiolucent marker is approximately 1-2 cm beyond the gastroesophageal junction. Cons ider advancing 3-5 cm. Signer Name: Kannan Bone MD Signed: 11/18/2020 6:22 PM Workstation Name: [id number]
[2020-11-18] MEDS: D5W/0.9% NACL 1,000 ML IV SCH (18:36)
[2020-11-18 19:23] LABS: ABG Base Excess -3.8 mmol/L (-2.0-3.0); ABG HCO3 20.3 mmol/L (20.0-26.0); ABG Methemoglobin 0.6 % (0.0-1.5); ABG Oxygen Saturation 95.2 % (95.0-99.0); ABG PCO2 34.3 mm Hg; ABG PH 7.39 pH Units (7.350-7.450); ABG PO2 71.1 mm Hg (80.0-90.0)
--- NOTE | 2020-11-18 21:02 | Cat Scan Report ---
CT CHEST WITH CONTRAST INDICATION / CLINICAL INFORMATION: tachycardia/tachypnea. TECHNIQUE: Axial CT images were obtained through the chest after 100 cc IV contrast. All CT scans at this locati on are performed using CT dose reduction for ALARA by means of automated exposure control. COMPARISON: None available. FINDINGS: HEART: No significant abnormality. THORACIC AORTA: No significant abnormality. MEDIASTINUM and LUCRECIA: No significant abnormality. LUNGS: Multifocal patchy airspace parenchymal disease left upper and both lower lobes most pronounced within the right lower lobe. PLEURA: No significant pleural effusion. No pneumothorax. ADDITIONAL FINDINGS: ET tube malpositioning to high 13.5 cm above horacio in cervical esophagus. NG tu be tip in body of stomach. Moderate bilateral symmetric gynecomastia UPPER ABDOMEN: No significant abnormality. SKELETAL SYSTEM: No significant abnormality. IMPRESSION: 1. Malpositioned ET tube should be advanced further distally. 2. Bilateral bronchopneumonia Signer Name: Holden Griffin MD Signed: 11/18/2020 8:58 PM Workstation Name: [id number]
[2020-11-18] MEDS: HEPARIN 5,000 UNIT/1 ML VIAL SUB-Q SCH (22:22)
[2020-11-18] MEDS: PIPERACILLIN/TAZOBACTAM 3.375 3.375 GM/50 ML BAG IV SCH (22:22)
--- NOTE | 2020-11-18 23:26 | XRay Report ---
CHEST 1 VIEW 2313 INDICATION / CLINICAL INFORMATION: CK placement of OETT COMPARISON: 1755 FINDINGS: SUPPORT DEVICES: Endotracheal tube appears to be in satisfactory position with tip approximately 8 cm above the horacio in the mid sternal notch level. Nasogastric tube appears to have withdrawn from the stomach and has its tip now in the distal esophagus. Advancement by at least 12 cm is suggested. HEART / MEDIASTINUM: Stable LUNGS / PLEURA: Patchy bilateral pulmonary infiltrates are again noted with mild improvement on the l eft but mild worsening in the right base. No pneumothorax. ADDITIONAL FINDINGS: Gaseous distention of the stomach has worsened Signer Name: Finesse Dubon MD Signed: 11/18/2020 11:22 PM Workstation Name: [id number]
[2020-11-19] MEDS: PIPERACILLIN/TAZOBACTAM 3.375 3.375 GM/50 ML BAG IV SCH ×2 (06:10→17:20)
[2020-11-19] MEDS: levETIRAcetam 1,500 MG in DEXTROSE 5% IN WATER 100 ML IV SCH ×2 (06:10→17:27)
[2020-11-19] MEDS: VANCOMYCIN/NS 1 GM/250 ML 1 GM/250 ML BAG IV SCH ×2 (06:10→14:52)
[2020-11-19 07:26] LABS: Blood Urea Nitrogen 6 mg/dL (9-20); Hemolysis Index 16
[2020-11-19 07:27] LABS: BUN/Creatinine Ratio 10
[2020-11-19] MEDS: HEPARIN 5,000 UNIT/1 ML VIAL SUB-Q SCH ×2 (09:02→22:35)
[2020-11-19] MEDS: D5W/0.9% NACL 1,000 ML IV SCH ×2 (09:02→22:37)
[2020-11-19] MEDS: POTASSIUM CHLORIDE 10 MEQ 10 MEQ/100 ML BAG IV SCH ×4 (09:02→12:58)
--- NOTE | 2020-11-19 09:49 | XRay Report ---
ABDOMEN 1 VIEW INDICATION / CLINICAL INFORMATION: OGT placement. COMPARISON: None available. FINDINGS: TUBES / LINES: Esophagogastric tube tip and sidehole project over the left upper quadrant of the abdo men. BOWEL GAS PATTERN: No significant abnormality. FREE AIR / EXTRALUMINAL GAS: None seen. ADDITIONAL FINDINGS: No significant additional findings. IMPRESSION: 1. Esophagogastric tube in expected position. Signer Name: Rafael Guerra MD Signed: 11/19/2020 9:45 AM Workstation Name: [id number]
[2020-11-19] MEDS ORDERED: fentaNYL 100 MCG/2 ML INJ IV ONE (11:31)
[2020-11-19] MEDS ORDERED: LACTATED RINGERS 1,000 ML IV ONE (11:32)
--- NOTE | 2020-11-19 11:54 | Consultation ---
History of Present Illness Consult date: 11/19/20 Requesting physician: IVIS GOODE Reason for consult: other (Status epilepticus and acute respiratory failure.) Past History Past Medical History: other (Epilepsy, multiple sclerosis) Past Surgical History: Other (Cannot obtain due to patient's mental condition) Social history: other (Can obtain due to patient's mental condition) Family history: no significant family history Medications and Allergies Allergies Allergy/AdvReac Type Severity Reaction Status Date / Time No Known Allergies Allergy Verified 02/09/18 14:00 Home Medications Medication Instructions Recorded Confirmed Last Taken Type Lacosamide [Vimpat] 100 mg PO Q12HR #60 tablet 09/08/19 Unknown Rx levETIRAcetam [Keppra TAB] 3 tab PO BID #180 tablet 09/08/19 11/18/20 Unknown Rx Active Meds: Active Medications Acetaminophen (Acetaminophen 325 Mg Tab) 650 mg PO Q4H PRN PRN Reason: Pain MILD(1-3)/Fever >100.5/KURTZ Heparin Sodium (Porcine) (Heparin 5,000 Unit/1 Ml Vial) 5,000 unit SUB-Q Q12HR PIERRE Last Admin: 11/19/20 09:02 Dose: 5,000 unit Documented by: Hydrophilic Ointment (Lip Therapy Vaseline) 1 applic TP Q2HR PRN PRN Reason: Dry Lips Piperacillin Sod/Tazobactam Sod (Zosyn/Ns 3.375gm/50ml) 3.375 gm in 50 mls @ 100 mls/hr IV Q8H PIERRE; Protocol Last Admin: 11/19/20 06:10 Dose: 100 mls/hr Documented by: Vancomycin HCl (Vancomycin/Ns 1 Gm/250 Ml) 1 gm in 250 mls @ 166.667 mls/hr IV Q12H PIERRE; Protocol Last Admin: 11/19/20 06:10 Dose: 166.667 mls/hr Documented by: Levetiracetam 1,500 mg/ (Dextrose) 115 mls @ 400 mls/hr IV Q12H PIERRE Last Admin: 11/19/20 06:10 Dose: 400 mls/hr Documented by: Dextrose/Sodium Chloride (D5ns) 1,000 mls @ 75 mls/hr IV DIRECT PIERRE Last Admin: 11/19/20 09:02 Dose: 75 mls/hr Documented by: Propofol (Diprivan 10 Mg/Ml) 1,000 mg in 100 mls @ 2.565 mls/hr IV TITR PIERRE; Protocol Last Admin: 11/19/20 09:02 Dose: 20 mcg/kg/min, 10.26 mls/hr Documented by: Potassium Chloride (Kcl 10meq/100ml) 10 meq in 100 mls @ 100 mls/hr IV Q1H PIERRE Stop: 11/19/20 12:59 Last Admin: 11/19/20 09:02 Dose: 100 mls/hr Documented by: Lactated Ringer's (Lactated Ringers) 1,000 mls @ 999 mls/hr IV BOLUS ONE Stop: 11/19/20 12:32 Lorazepam (Lorazepam 2 Mg/Ml Vial) 2 mg IV Q2MIN PRN PRN Reason: Seizures Morphine Sulfate (Morphine 2 Mg/1 Ml Inj) 2 mg IV Q4H PRN PRN Reason: Pain, Moderate (4-6) Morphine Sulfate (Morphine 4 Mg/1 Ml Inj) 4 mg IV Q4H PRN PRN Reason: Pain , Severe (7-10) Multi-Ingred Cream/Lotion/Oil/Oint (Mineral Oil/Petrolatum, White Ophth Oint 3.5 Gm) 1 applic OU Q4HR PRN PRN Reason: Dry Eye(s) Naloxone HCl (Naloxone 0.4 Mg/1 Ml Inj) 0.1 mg IV Q2MIN PRN PRN Reason: Res Rate </= 8 or 02 SAT < 92% Ondansetron HCl (Ondansetron 4 Mg/2 Ml Inj) 4 mg IV Q8H PRN PRN Reason: Nausea And Vomiting Sodium Chloride (Sodium Chloride 0.9% 10 Ml Flush Syringe) 10 ml IV BID [facility] Last Admin: 11/19/20 09:04 Dose: 10 ml Documented by: Sodium Chloride (Sodium Chloride 0.9% 10 Ml Flush Syringe) 10 ml IV PRN PRN PRN Reason: LINE FLUSH Physical Examination Vital signs: Vital Signs Pulse Resp BP Pulse Ox 147 H 13 128/70 91 11/18/20 06:25 11/18/20 06:25 11/18/20 06:25 11/18/20 06:25 Results - Laboratory Findings CBC and BMP: 11/18/20 17:02 11/19/20 06:47 ABG ABG pH 7.482 (7.320-7.450) H 11/19/20 03:57 POC ABG pCO2 26.7 mmHg (32.0-48.0) L 11/19/20 03:57 ABG pCO2 34.3 mm Hg 11/18/20 18:52 POC ABG pO2 142.7 mmHg (83-108) H 11/19/20 03:57 ABG pO2 71.1 mm Hg (80.0-90.0) L 11/18/20 18:52 POC ABG HCO3 19.5 11/19/20 03:57 ABG O2 Saturation 99.0 (0-100) 11/19/20 03:57 PT/INR, D-dimer D-Dimer 1161.92 ng/mlDDU (0-234) H 11/18/20 17:02 Abnormal lab findings: Abnormal Labs 11/18/20 11/18/20 11/18/20 07:05 07:09 07:09 WBC 12.0 H RBC 5.04 H Hgb Hct Plt Count Lymph % (Auto) 2.2 L [place] % (Auto) 8.5 H Lymph # (Auto) 0.3 L [place] # (Auto) 1.0 H Seg Neutrophils % 89.0 H Seg Neutrophils # 10.7 H D-Dimer ABG pH POC ABG pCO2 POC ABG pO2 ABG pO2 ABG Base Excess ABG Oxyhemoglobin ABG Sodium ABG Chloride ABG Glucose Oxyhemoglobin Potassium BUN Creatinine Glucose 66 L POC Glucose Calcium 8.3 L Total Creatine Kinase 200 H Arterial Blood Glucose Arterial Blood Ionized Calcium 11/18/20 11/18/20 11/18/20 17:02 17:02 18:52 WBC RBC 5.41 H Hgb 15.4 H Hct 45.7 H Plt Count 120 L Lymph % (Auto) 4.0 L [place] % (Auto) Lymph # (Auto) 0.4 L [place] # (Auto) Seg Neutrophils % 89.0 H Seg Neutrophils # 9.4 H D-Dimer 1161.92 H ABG pH POC ABG pCO2 POC ABG pO2 ABG pO2 71.1 L ABG Base Excess -3.8 L ABG Oxyhemoglobin ABG Sodium ABG Chloride ABG Glucose Oxyhemoglobin 93.7 L Potassium BUN Creatinine Glucose POC Glucose Calcium Total Creatine Kinase Arterial Blood Glucose Arterial Blood Ionized Calcium 11/18/20 11/19/20 11/19/20 19:28 03:57 05:16 WBC RBC Hgb Hct Plt Count Lymph % (Auto) [place] % (Auto) Lymph # (Auto) [place] # (Auto) Seg Neutrophils % Seg Neutrophils # D-Dimer ABG pH 7.482 H POC ABG pCO2 26.7 L POC ABG pO2 142.7 H ABG pO2 ABG Base Excess ABG Oxyhemoglobin 98.5 H ABG Sodium 135.9 L ABG Chloride 108.0 H ABG Glucose 119 H Oxyhemoglobin Potassium BUN Creatinine Glucose POC Glucose 118 H 123 H Calcium Total Creatine Kinase Arterial Blood Glucose 119 H Arterial Blood Ionized Calcium 4.5 L 11/19/20 06:47 WBC RBC Hgb Hct Plt Count Lymph % (Auto) [place] % (Auto) Lymph # (Auto) [place] # (Auto) Seg Neutrophils % Seg Neutrophils # D-Dimer ABG pH POC ABG pCO2 POC ABG pO2 ABG pO2 ABG Base Excess ABG Oxyhemoglobin ABG Sodium ABG Chloride ABG Glucose Oxyhemoglobin Potassium 3.5 L BUN 6 L Creatinine 0.6 L Glucose 119 H POC Glucose Calcium 8.0 L Total Creatine Kinase 2179 H Arterial Blood Glucose Arterial Blood Ionized Calcium Assessment and Plan 35 y/o male with MS admitted with status epilepticus, finally aborted however patient with acute respiratory failure requiring mechanical ventilation. 1. Change Zosyn to Cefepime. Does look like some inflammatory process in the lung with consolidation in the lower lobe on the right. Could be aspiration. A gree with broad spec but tailor based on culture results. 2. Continue mechanincal vent, minimal settings, not ready for extubation today 3. Remains in sinus tach and tachypnic. Could be pain, not febrile any more. Will give a fent bolus. Will also give a liter bolus of LR. Although patient does not appear dry based on lab results. Fever control. Stopped PRN metoprolol as this is sinus tach, fear patient would bottom out if therapy in the form of beta chichi. 4. Follow up neurology recs. Agree with ESTEBAN brandan, father to bring in meds for reconciliation. 5. Guarded prognosis. CCT 31 minutes.
[2020-11-19] MEDS ORDERED: FLU VACC QUAD 2020-2021 (6 months +)/PF 60 0.5 ML SYRINGE IM ONE (12:00)
--- NOTE | 2020-11-19 12:37 | Progress Note ---
Assessment and Plan Assessment and plan: This is a 35-year-old male with multiple sclerosis and epilepsy who was admitted for potential sepsis, COVID-19 PUI and seizures. Status epilepticus Sepsis, POA (possible aspiration) Hypokalemia History of multiple sclerosis -[facility] and neurology consulted, appreciate recommendations -s/p Ativan and midazolam by EMS -Keppra 1500 BID, Oxcarbazepine 300mg BID -PRN Ativan -Wean MV as tolerated, VAP bundle -IV abx -Once TF at goal, will discontinue IVF -Accucheck q6hrs, SSI -COVID PCR pending -Droplet/Contact insolation -Seizure/Aspiration precautions -11/18 CXR shows patchy bilateral pulmonary infiltrates with mild improvement on the left but not worsened on the right, gaseous distention of the stomach -11/18 CTA chest shows bilateral bronchopneumonia (multifocal patchy airspace parenchymal disease left upper and both lower lobes most pronounced within the right lower lobe) -11/18 CT head shows no acute intracranial abnormality, mild diffuse cortical volume loss which is stable but appears advanced for age. No acute changes appreciated since 09/05/2019 exam -Trend CBC and BMP DVT/GI prophylaxis: Heparin subcu, SCDs to bilateral lower extremities while in bed, PPI Disposition: ICU The high probability of a clinically significant, sudden or life threatening deterioration of the [multi] system(s) required my full and direct attention, intervention and personal management. The aggregate critical care time was [35] minutes. This time is in addition to time spent performing reported procedures but includes the following: [x] Data Review and interpretation [x] Patient assessment and monitoring of vital signs [x] Documentation [x] Medication orders and management History Interval history: This is a 35-year-old male with multiple sclerosis and epilepsy who presents to the emergency department on 11/18 with acute seizures (witnessed at home) and was given 2 mg of Ativan and 2 mg of diazepam until cessation after 30 minutes. In the emergency department patient was found to be tachycardic with heart rate of 146, febrile to 102 and was given IV Keppra. Patient was admitted to the hospitalist service with consults to [facility] for potential sepsis, COVID-19 PUI and seizures. 11/19: Patient was intubated yesterday evening for tachycardia and respiratory distress. Ddimer was elevated and he obtained a CTA chest which was read as no PE but bronchopnemonia. His abx will be changed to cefepime from zosyn and continue vancomycin. Ntr consult for TF. Hypokalemia repleted, restarted home trileptal. Given LR bolus and fentanyl bolus in hopes to help with tachycardia. Hospitalist Physical - Constitutional Vitals: Temp Pulse Resp BP Pulse Ox 98.8 F 104 H 16 104/81 98 11/19/20 03:28 11/19/20 12:20 11/19/20 12:20 11/19/20 12:20 11/19/20 12:20 General appearance: Present: other (sedated) - EENT Eyes: Present: PERRL, EOM intact ENT: clear oral mucosa - Neck Neck: Absent: masses or JVD, cervical LAD - Respiratory Respiratory effort: normal Respiratory: bilateral: diminished - Cardiovascular Rhythm: regular Heart Sounds: Present: S1 & S2. Absent: systolic murmur, diastolic murmur - Extremities Extremities: no ischemia, pulses intact, pulses symmetrical, No edema, normal temperature, normal color Peripheral Pulses: within normal limits - Abdominal General gastrointestinal: soft, non-tender, non-distended, normal bowel sounds - Integumentary Integumentary: Present: clear, warm, dry - Psychiatric Psychiatric: other (sedated) - Neurologic Neurologic: other (sedated, withdraw to painful stimuli in all extremites, opens eyes to voice) - Allied Health Allied health notes reviewed: nursing, RT Results - Labs CBC & Chem 7: 11/18/20 17:02 11/19/20 06:47 Labs: Laboratory Last Values WBC 10.6 K/mm3 (4.5-11.0) 11/18/20 17:02 RBC 5.41 M/mm3 (3.65-5.03) H 11/18/20 17:02 Hgb 15.4 gm/dl (11.8-15.2) H 11/18/20 17:02 Hct 45.7 % (35.5-45.6) H 11/18/20 17:02 MCV 85 fl (84-94) 11/18/20 17:02 MCH 29 pg (28-32) 11/18/20 17:02 MCHC 34 % (32-34) 11/18/20 17:02 RDW 14.2 % (13.2-15.2) 11/18/20 17:02 Plt Count 120 K/mm3 (140-440) L 11/18/20 17:02 Lymph % (Auto) 4.0 % (13.4-35.0) L 11/18/20 17:02 [place] % (Auto) 6.9 % (0.0-7.3) 11/18/20 17:02 Eos % (Auto) 0.0 % (0.0-4.3) 11/18/20 17:02 Baso % (Auto) 0.1 % (0.0-1.8) 11/18/20 17:02 Lymph # (Auto) 0.4 K/mm3 (1.2-5.4) L 11/18/20 17:02 [place] # (Auto) 0.7 K/mm3 (0.0-0.8) 11/18/20 17:02 Eos # (Auto) 0.0 K/mm3 (0.0-0.4) 11/18/20 17:02 Baso # (Auto) 0.0 K/mm3 (0.0-0.1) 11/18/20 17:02 Seg Neutrophils % 89.0 % (40.0-70.0) H 11/18/20 17:02 Seg Neutrophils # 9.4 K/mm3 (1.8-7.7) H 11/18/20 17:02 D-Dimer 1161.92 ng/mlDDU (0-234) H 11/18/20 17:02 ABG pH 7.482 (7.320-7.450) H 11/19/20 03:57 POC ABG pCO2 26.7 mmHg (32.0-48.0) L 11/19/20 03:57 ABG pCO2 34.3 mm Hg 11/18/20 18:52 POC ABG pO2 142.7 mmHg (83-108) H 11/19/20 03:57 ABG pO2 71.1 mm Hg (80.0-90.0) L 11/18/20 18:52 POC ABG HCO3 19.5 11/19/20 03:57 ABG HCO3 20.3 mmol/L (20.0-26.0) 11/18/20 18:52 ABG O2 Saturation 99.0 (0-100) 11/19/20 03:57 ABG O2 Content 19.6 (0.0-44) 11/18/20 18:52 POC ABG Base Excess -2.2 11/19/20 03:57 ABG Base Excess -3.8 mmol/L (-2.0-3.0) L 11/18/20 18:52 ABG Hemoglobin 15.4 (12.0-17.5) 11/19/20 03:57 ABG Oxyhemoglobin 98.5 (94-98) H 11/19/20 03:57 ABG Carboxyhemoglobin 1.1 % (0.0-5.0) 11/18/20 18:52 ABG Methemoglobin 0 (0.0-1.5) 11/19/20 03:57 ABG Sodium 135.9 mmol/L (136.0-145.0) L 11/19/20 03:57 ABG Potassium 3.5 mmol/L (3.40-4.50) 11/19/20 03:57 ABG Chloride 108.0 mmol/L (98-107) H 11/19/20 03:57 ABG Glucose 119 mg/dL (65-95) H 11/19/20 03:57 Oxyhemoglobin 93.7 % (95.0-99.0) L 11/18/20 18:52 Carboxyhemoglobin 0.5 (0.5-1.5) 11/19/20 03:57 FiO2 50 % 11/18/20 18:52 FiO2 % 50.0 11/19/20 03:57 Sodium 140 mmol/L (137-145) 11/19/20 06:47 Potassium 3.5 mmol/L (3.6-5.0) L 11/19/20 06:47 Chloride 106.9 mmol/L (98-107) 11/19/20 06:47 Carbon Dioxide 23 mmol/L (22-30) 11/19/20 06:47 Anion Gap 14 mmol/L 11/19/20 06:47 BUN 6 mg/dL (9-20) L 11/19/20 06:47 Creatinine 0.6 mg/dL (0.8-1.3) L 11/19/20 06:47 Estimated GFR > 60 ml/min 11/19/20 06:47 BUN/Creatinine Ratio 10 % 11/19/20 06:47 Glucose 119 mg/dL (75-100) H 11/19/20 06:47 POC Glucose 123 mg/dL (70-105) H 11/19/20 05:16 Lactic Acid 1.90 mmol/L (0.7-2.0) 11/18/20 17:02 Calcium 8.0 mg/dL (8.4-10.2) L 11/19/20 06:47 Magnesium 2.10 mg/dL (1.7-2.3) 11/18/20 07:09 Total Creatine Kinase 2179 units/L (55-170) H 11/19/20 06:47 TSH 1.730 mlU/mL (0.270-4.200) 11/18/20 07:09 Free T4 1.19 ng/dL (0.76-1.46) 11/18/20 07:09 Arterial Blood Glucose 119 mg/dL (65-95) H 11/19/20 03:57 Arterial Blood Ionized Calcium 4.5 mg/dL (4.6-5.3) L 11/19/20 03:57 Urine Color Straw (Yellow) 11/18/20 10:50 Urine Turbidity Clear (Clear) 11/18/20 10:50 Urine pH 6.0 (5.0-7.0) 11/18/20 10:50 Ur Specific [place] 1.009 (1.003-1.030) 11/18/20 10:50 Urine Protein <15 mg/dl mg/dL (Negative) 11/18/20 10:50 Urine Glucose (UA) Neg mg/dL (Negative) 11/18/20 10:50 Urine Ketones 20 mg/dL (Negative) 11/18/20 10:50 Urine Blood Sm (Negative) 11/18/20 10:50 Urine Nitrite Neg (Negative) 11/18/20 10:50 Urine Bilirubin Neg (Negative) 11/18/20 10:50 Urine Urobilinogen < 2.0 mg/dL (<2.0) 11/18/20 10:50 Ur Leukocyte Esterase Neg (Negative) 11/18/20 10:50 Urine WBC (Auto) 1.0 /HPF (0.0-6.0) 11/18/20 10:50 Urine RBC (Auto) 1.0 /HPF (0.0-6.0) 11/18/20 10:50 Microbiology: Microbiology 11/18/20 12:37 Peripheral/Venous Blood Culture - Preliminary Culture in Progress 11/18/20 12:37 Peripheral/Venous Blood Culture - Preliminary Culture in Progress [place]/IV: Voiding Method Indwelling Catheter Active Medications - Current Medications Current Medications: Generic Name Dose Route Start Last Admin Trade Name Freq PRN Reason Stop Dose Admin Acetaminophen 650 mg 11/18/20 12:15 Acetaminophen 325 Mg Tab PO Q4H PRN Pain MILD(1-3)/Fever >100.5/KURTZ Heparin Sodium (Porcine) 5,000 unit 11/18/20 22:00 11/19/20 09:02 Heparin 5,000 Unit/1 Ml Vial SUB-Q 5,000 unit Q12HR PIERRE Administration Hydrophilic Ointment 1 applic 11/18/20 17:08 Lip Therapy Vaseline TP Q2HR PRN Dry Lips Vancomycin HCl 1 gm in 250 mls @ 166.667 mls/hr 11/18/20 13:00 11/19/20 06:10 Vancomycin/Ns 1 Gm/250 Ml IV 166.667 mls/hr Q12H PIERRE Administration Protocol Levetiracetam 1,500 mg/ 115 mls @ 400 mls/hr 11/18/20 17:00 11/19/20 06:10 Dextrose IV 400 mls/hr Q12H PIERRE Administration Dextrose/Sodium Chloride 1,000 mls @ 75 mls/hr 11/18/20 13:00 11/19/20 09:02 D5ns IV 75 mls/hr DIRECT PIERRE Administration Propofol 1,000 mg in 100 mls @ 2.565 mls/hr 11/18/20 18:00 11/19/20 09:02 Diprivan 10 Mg/Ml IV 20 mcg/kg/min TITR PIERRE 10.26 mls/hr Administration Protocol 5 MCG/KG/MIN Potassium Chloride 10 meq in 100 mls @ 100 mls/hr 11/19/20 09:00 11/19/20 11:59 Kcl 10meq/100ml IV 11/19/20 12:59 100 mls/hr Q1H PIERRE Administration Cefepime HCl 2 gm in 100 mls @ 200 mls/hr 11/19/20 13:00 Cefepime/Ns 2 Gm/100 Ml IV 11/20/20 21:29 Q8H PIERRE Protocol Lorazepam 2 mg 11/18/20 12:38 Lorazepam 2 Mg/Ml Vial IV Q2MIN PRN Seizures Morphine Sulfate 2 mg 11/18/20 12:15 Morphine 2 Mg/1 Ml Inj IV Q4H PRN Pain, Moderate (4-6) Morphine Sulfate 4 mg 11/18/20 12:15 Morphine 4 Mg/1 Ml Inj IV Q4H PRN Pain , Severe (7-10) Multi-Ingred Cream/Lotion/Oil/Oint 1 applic 11/18/20 17:08 Mineral Oil/Petrolatum, White Ophth Oint 3.5 Gm OU Q4HR PRN Dry Eye(s) Naloxone HCl 0.1 mg 11/18/20 12:15 Naloxone 0.4 Mg/1 Ml Inj IV Q2MIN PRN Res Rate </= 8 or 02 SAT < 92% Ondansetron HCl 4 mg 11/18/20 12:15 Ondansetron 4 Mg/2 Ml Inj IV Q8H PRN Nausea And Vomiting Oxcarbazepine 300 mg 11/19/20 13:00 Oxcarbazepine 300 Mg Tab PO BID PIERRE Sodium Chloride 10 ml 11/18/20 22:00 11/19/20 09:04 Sodium Chloride 0.9% 10 Ml Flush Syringe IV 10 ml BID PIERRE Administration Sodium Chloride 10 ml 11/18/20 12:15 Sodium Chloride 0.9% 10 Ml Flush Syringe IV PRN PRN LINE FLUSH Nutrition/Malnutrition Assess - Dietary Evaluation Nutrition/Malnutrition Findings: Nutrition Notes Start: 11/19/20 09:46 Freq: Status: Active Protocol: Document 11/19/20 09:46 LP (Rec: 11/19/20 09:53 LP [id number]) Nutrition Notes Need for Assessment generated from: MD Order Initial or Follow up Assessment Current Diagnosis Sepsis Other Pertinent Diagnosis Seizure, MS Current Diet NPO Labs/Tests K 3.5 BG 119 Pertinent Medications D5NS at 75ml/hr 40mEq KCL Propofol at 10ml/hr Height 5 ft 10 in Weight 79.4 kg [place] Body Weight (kg) 75.45 BMI 25.1 Weight Status Overweight Subjective/Other Information Consult for evaluate nutrition intakes. Pt on vent. Burn Absent Trauma Absent Current % PO Negligible Minimum of two criteria No physical signs of malnutrition #1 Nutrition Diagnosis Inadequate oral intake Etiology ARF As Evidenced by Signs and Symptoms Pt unable to consume PO due to vent Is patient on ventilator? Yes Is Patient Ambulatory and/or Out of Bed No REE-([facility]-confined to bed) 2089.684 Calculation Used for Recommendations [facility] Additional Notes Protein needs 95-159g (1.2-2g/ kg) Fluid needs are 1ml/kcal Nutrition Intervention Change Diet Order: TF or regular diet once extubated Nutrition Support: Once consulted Osmolite 1.5 at 60ml/hr Flush 180ml q4h Kcal 2,160 Protein (gm) 90 Fluid (mL) 1,097 Goal #1 TF consult or extubation Anticipated Discharge Needs: Unable to determine at this time Follow-Up By: 11/21/20 Additional Comments TF consult or extubation
[2020-11-19] MEDS ORDERED: SIMPLE SYRUP 15 ML FEEDTUBE PRN ×2 (12:55)
[2020-11-19] MEDS ORDERED: SODIUM BICARBONATE 325 MG TAB FEEDTUBE PRN (12:55)
[2020-11-19] MEDS ORDERED: LIPASE 10,500/PROTEASE 25,000/AMYLASE 43,750 (UNITS) DR CAP FEEDTUBE PRN (12:55)
[2020-11-19] MEDS: CEFEPIME/NS 2 GM/100 ML 2 GM/100 ML BAG IV SCH ×2 (12:57→22:35)
[2020-11-19] MEDS ORDERED: DEXTROSE 50% IN WATER (25GM) 50 ML SYRINGE IV PRN (12:58)
[2020-11-19] MEDS: OXcarbazepine 300 MG TAB PO SCH ×2 (14:52→22:40)
--- NOTE | 2020-11-19 15:54 | Event Note ---
Date: 11/19/20 I called the patients father, Lloyd Merino this afternoon at 1207 to update him abut his son. He relayed that Mr Adair Merino is not on medication for MS as he has not seen a neurologist for the initiation of medication yet. We reconfirmed the home medications.
[2020-11-19] MEDS: INSULIN LISPRO 100 UNIT/ML SUB-Q SCH (17:43)
--- NOTE | 2020-11-19 22:19 | XRay Report ---
CHEST 1 VIEW 11/19/2020 10:10 PM INDICATION / CLINICAL INFORMATION: r/o aspirates. COMPARISON: 11/18/2020. FINDINGS: SUPPORT DEVICES: Unchanged. HEART / MEDIASTINUM: Stable. LUNGS / PLEURA: Patchy bilateral pulmonary opacities have improved. No pneumothorax. ADDITIONAL FINDINGS: No significant additional findings. IMPRESSION: 1. Interval improvement. Signer Name: Rafael Guerra MD Signed: 11/19/2020 10:14 PM Workstation Name: [id number]
[2020-11-20] MEDS: D5W/0.9% NACL 1,000 ML IV SCH ×2 (03:25→15:18)
[2020-11-20] MEDS: VANCOMYCIN/NS 1 GM/250 ML 1 GM/250 ML BAG IV SCH ×2 (03:25→13:32)
[2020-11-20] MEDS: levETIRAcetam 1,500 MG in DEXTROSE 5% IN WATER 100 ML IV SCH ×2 (05:58→17:13)
[2020-11-20] MEDS: INSULIN LISPRO 100 UNIT/ML SUB-Q SCH ×3 (06:19→19:06)
[2020-11-20] MEDS: CEFEPIME/NS 2 GM/100 ML 2 GM/100 ML BAG IV SCH ×3 (06:21→20:38)
[2020-11-20] MEDS ORDERED: fentaNYL 100 MCG/2 ML INJ IV PRN (07:49)
[2020-11-20 08:17] LABS: Hematocrit 38.3 % (35.5-45.6); Mean Corpuscular HGB Conc 34 % (32-34); Mean Corpuscular Volume 84 fl (84-94); Platelet Count 103 K/mm3 (140-440); Red Blood Count 4.58 M/mm3 (3.65-5.03); Red Cell Distribution Width 14.2 % (13.2-15.2)
[2020-11-20 08:38] LABS: Blood Urea Nitrogen 5 mg/dL (9-20); Calcium 7.7 mg/dL (8.4-10.2); Hemolysis Index 7
[2020-11-20 08:40] LABS: BUN/Creatinine Ratio 10
[2020-11-20] MEDS: OXcarbazepine 300 MG TAB PO SCH ×2 (09:46→21:10)
[2020-11-20] MEDS: HEPARIN 5,000 UNIT/1 ML VIAL SUB-Q SCH ×2 (09:46→21:10)
[2020-11-20] MEDS ORDERED: POTASSIUM CHLORIDE 20 MEQ PACKET FEEDTUBE ONE (11:28)
--- NOTE | 2020-11-20 11:31 | Progress Note ---
Assessment and Plan 35 y/o male with MS admitted with status epilepticus, finally aborted however patient with acute respiratory failure requiring mechanical ventilation. 11/20/20: Continue cefempime and vanc for now. Will continue intubation through today and will plan to extubate tomorrow. Follow up neuro recs, guessing they will see him on Saturday. continue all other supportive measures. 1. Change Zosyn to Cefepime. Does look like some inflammatory process in the lung with consolidation in the lower lobe on the right. Could be aspiration. Agree with broad spec but tailor based on culture results. 2. Continue mechanincal vent, minimal settings, not ready for extubation today 3. Remains in sinus tach and tachypnic. Could be pain, not febrile any more. Will give a fent bolus. Will also give a liter bolus of LR. Although patient d oes not appear dry based on lab results. Fever control. Stopped PRN metoprolol as this is sinus tach, fear patient would bottom out if therapy in the form of beta chichi. 4. Follow up neurology recs. Agree with ESTEBAN brandan, father to bring in meds for reconciliation. 5. Guarded prognosis. CCT 31 minutes. Subjective Date of service: 11/20/20 Interval history: No acute events. No further seizure activity. Awake on Diprovan at 30. BP stable. HR better but still with some tachycardia. Objective Vital Signs - 12hr 11/19/20 11/19/20 11/19/20 23:20 23:30 23:40 Temperature Pulse Rate 107 H 117 H 106 H Pulse Rate [ From Monitor] Respiratory 16 16 16 Rate Blood Pressure 134/88 134/88 134/88 O2 Sat by Pulse 100 100 100 Oximetry 11/19/20 11/20/20 11/20/20 23:50 00:00 00:10 Temperature Pulse Rate 94 H 106 H 97 H Pulse Rate [ 106 H From Monitor] Respiratory 16 15 16 Rate Blood Pressure 134/88 126/87 126/87 O2 Sat by Pulse 100 100 100 Oximetry 11/20/20 11/20/20 11/20/20 00:15 00:20 00:30 Temperature Pulse Rate 100 H 94 H 92 H Pulse Rate [ From Monitor] Respiratory 16 16 Rate Blood Pressure 126/87 126/87 126/87 O2 Sat by Pulse 100 100 100 Oximetry 11/20/20 11/20/20 11/20/20 00:40 00:50 01:00 Temperature Pulse Rate 107 H 110 H 116 H Pulse Rate [ From Monitor] Respiratory 16 16 19 Rate Blood Pressure 126/87 126/87 127/92 O2 Sat by Pulse 99 99 99 Oximetry 11/20/20 11/20/20 11/20/20 01:10 01:20 01:30 Temperature Pulse Rate 105 H 95 H 112 H Pulse Rate [ From Monitor] Respiratory 16 16 16 Rate Blood Pressure 127/92 127/92 127/92 O2 Sat by Pulse 100 100 99 Oximetry 11/20/20 11/20/20 11/20/20 01:40 01:50 02:00 Temperature Pulse Rate 112 H 108 H 114 H Pulse Rate [ From Monitor] Respiratory 16 16 16 Rate Blood Pressure 127/92 132/76 O2 Sat by Pulse 98 98 Oximetry 11/20/20 11/20/20 11/20/20 02:10 02:20 02:30 Temperature Pulse Rate 109 H 101 H 91 H Pulse Rate [ From Monitor] Respiratory 16 16 16 Rate Blood Pressure 132/76 132/76 132/76 O2 Sat by Pulse 97 99 99 Oximetry 11/20/20 11/20/20 11/20/20 02:40 02:50 03:00 Temperature Pulse Rate 84 113 H 119 H Pulse Rate [ From Monitor] Respiratory 16 16 19 Rate Blood Pressure 132/76 132/76 128/87 O2 Sat by Pulse 100 100 100 Oximetry 11/20/20 11/20/20 11/20/20 03:10 03:13 03:20 Temperature 98.4 F Pulse Rate 120 H 121 H Pulse Rate [ From Monitor] Respiratory 20 17 Rate Blood Pressure 128/87 128/87 O2 Sat by Pulse 100 93 Oximetry 11/20/20 11/20/20 11/20/20 03:30 03:40 03:50 Temperature Pulse Rate 107 H 128 H 114 H Pulse Rate [ From Monitor] Respiratory 16 20 17 Rate Blood Pressure 128/87 128/87 128/87 O2 Sat by Pulse 93 100 100 Oximetry 11/20/20 11/20/20 11/20/20 04:00 04:10 04:20 Temperature Pulse Rate 123 H 117 H 118 H Pulse Rate [ 123 H From Monitor] Respiratory 22 16 19 Rate Blood Pressure 116/86 116/86 116/86 O2 Sat by Pulse 95 100 98 Oximetry 11/20/20 11/20/20 11/20/20 04:30 04:40 04:50 Temperature Pulse Rate 114 H 102 H 100 H Pulse Rate [ From Monitor] Respiratory 17 18 16 Rate Blood Pressure 116/86 116/86 116/86 O2 Sat by Pulse 99 97 97 Oximetry 11/20/20 11/20/20 11/20/20 05:00 05:10 05:20 Temperature Pulse Rate 101 H 107 H 113 H Pulse Rate [ From Monitor] Respiratory 16 16 16 Rate Blood Pressure 120/82 120/82 120/82 O2 Sat by Pulse 98 98 99 Oximetry 11/20/20 11/20/20 11/20/20 05:30 05:40 05:50 Temperature Pulse Rate 115 H 106 H 100 H Pulse Rate [ From Monitor] Respiratory 15 21 13 Rate Blood Pressure 120/82 120/82 120/82 O2 Sat by Pulse 98 100 Oximetry 11/20/20 11/20/20 11/20/20 06:00 06:10 06:20 Temperature Pulse Rate 95 H 115 H 105 H Pulse Rate [ From Monitor] Respiratory 16 16 19 Rate Blood Pressure 123/86 123/86 123/86 O2 Sat by Pulse Oximetry 11/20/20 11/20/20 11/20/20 06:30 06:40 06:50 Temperature Pulse Rate 84 85 89 Pulse Rate [ From Monitor] Respiratory 16 16 16 Rate Blood Pressure 123/86 123/86 123/86 O2 Sat by Pulse Oximetry 11/20/20 11/20/20 11/20/20 07:00 07:10 07:20 Temperature Pulse Rate 88 91 H 92 H Pulse Rate [ From Monitor] Respiratory 16 16 16 Rate Blood Pressure 113/72 113/72 113/72 O2 Sat by Pulse Oximetry 11/20/20 11/20/20 11/20/20 07:30 07:40 07:50 Temperature Pulse Rate 89 88 87 Pulse Rate [ From Monitor] Respiratory 16 16 16 Rate Blood Pressure 113/72 113/72 113/72 O2 Sat by Pulse Oximetry 11/20/20 11/20/20 11/20/20 08:00 08:10 08:20 Temperature 97.2 F L Pulse Rate 82 85 88 Pulse Rate [ 114 H From Monitor] Respiratory 15 16 16 Rate Blood Pressure 115/73 115/73 115/73 O2 Sat by Pulse 100 Oximetry 11/20/20 11/20/20 11/20/20 08:30 08:40 08:50 Temperature Pulse Rate 89 93 H 136 H Pulse Rate [ From Monitor] Respiratory 16 16 22 Rate Blood Pressure 115/73 115/73 127/86 O2 Sat by Pulse 100 Oximetry 11/20/20 11/20/20 11/20/20 09:00 09:10 09:20 Temperature Pulse Rate 118 H 102 H 130 H Pulse Rate [ From Monitor] Respiratory 24 19 18 Rate Blood Pressure 127/86 127/86 127/86 O2 Sat by Pulse 100 100 100 Oximetry 11/20/20 11/20/20 11/20/20 09:30 09:40 09:50 Temperature Pulse Rate 113 H 100 H 102 H Pulse Rate [ From Monitor] Respiratory 17 16 16 Rate Blood Pressure 127/86 127/86 127/86 O2 Sat by Pulse 100 100 99 Oximetry 11/20/20 11/20/20 11/20/20 10:00 10:10 10:20 Temperature Pulse Rate 102 H 114 H 96 H Pulse Rate [ From Monitor] Respiratory 16 14 16 Rate Blood Pressure 116/69 116/69 116/69 O2 Sat by Pulse 97 98 99 Oximetry 11/20/20 11/20/20 11/20/20 10:30 10:40 10:50 Temperature Pulse Rate 98 H 95 H 100 H Pulse Rate [ From Monitor] Respiratory 16 16 16 Rate Blood Pressure 116/69 116/69 116/69 O2 Sat by Pulse 99 99 99 Oximetry 11/20/20 11:00 Temperature Pulse Rate 97 H Pulse Rate [ From Monitor] Respiratory 16 Rate Blood Pressure 106/64 O2 Sat by Pulse 96 Oximetry CBC and BMP: 11/20/20 07:52 11/20/20 07:52 ABG, PT/INR, D-dimer: ABG ABG pH 7.405 (7.320-7.450) 11/20/20 03:13 POC ABG pCO2 37.7 mmHg (32.0-48.0) 11/20/20 03:13 ABG pCO2 34.3 mm Hg 11/18/20 18:52 POC ABG pO2 109.0 mmHg (83-108) H 11/20/20 03:13 ABG pO2 71.1 mm Hg (80.0-90.0) L 11/18/20 18:52 POC ABG HCO3 23.1 11/20/20 03:13 ABG O2 Saturation 98.2 (0-100) 11/20/20 03:13 PT/INR, D-dimer D-Dimer 1161.92 ng/mlDDU (0-234) H 11/18/20 17:02 Abnormal lab findings: Abnormal Labs 11/18/20 11/18/20 11/18/20 07:05 07:09 07:09 WBC 12.0 H RBC 5.04 H Hgb Hct Plt Count Lymph % (Auto) 2.2 L [place] % (Auto) 8.5 H Lymph # (Auto) 0.3 L [place] # (Auto) 1.0 H Seg Neutrophils % 89.0 H Seg Neutrophils # 10.7 H D-Dimer ABG pH POC ABG pCO2 POC ABG pO2 ABG pO2 ABG Base Excess ABG Oxyhemoglobin ABG Sodium ABG Chloride ABG Glucose Oxyhemoglobin Potassium Chloride BUN Creatinine Glucose 66 L POC Glucose Calcium 8.3 L Total Creatine Kinase 200 H Arterial Blood Glucose Arterial Blood Ionized Calcium 11/18/20 11/18/20 11/18/20 17:02 17:02 18:52 WBC RBC 5.41 H Hgb 15.4 H Hct 45.7 H Plt Count 120 L Lymph % (Auto) 4.0 L [place] % (Auto) Lymph # (Auto) 0.4 L [place] # (Auto) Seg Neutrophils % 89.0 H Seg Neutrophils # 9.4 H D-Dimer 1161.92 H ABG pH POC ABG pCO2 POC ABG pO2 ABG pO2 71.1 L ABG Base Excess -3.8 L ABG Oxyhemoglobin ABG Sodium ABG Chloride ABG Glucose Oxyhemoglobin 93.7 L Potassium Chloride BUN Creatinine Glucose POC Glucose Calcium Total Creatine Kinase Arterial Blood Glucose Arterial Blood Ionized Calcium 11/18/20 11/19/20 11/19/20 19:28 03:57 05:16 WBC RBC Hgb Hct Plt Count Lymph % (Auto) [place] % (Auto) Lymph # (Auto) [place] # (Auto) Seg Neutrophils % Seg Neutrophils # D-Dimer ABG pH 7.482 H POC ABG pCO2 26.7 L POC ABG pO2 142.7 H ABG pO2 ABG Base Excess ABG Oxyhemoglobin 98.5 H ABG Sodium 135.9 L ABG Chloride 108.0 H ABG Glucose 119 H Oxyhemoglobin Potassium Chloride BUN Creatinine Glucose POC Glucose 118 H 123 H Calcium Total Creatine Kinase Arterial Blood Glucose 119 H Arterial Blood Ionized Calcium 4.5 L 11/19/20 11/19/20 11/19/20 06:47 09:36 12:20 WBC RBC Hgb Hct Plt Count Lymph % (Auto) [place] % (Auto) Lymph # (Auto) [place] # (Auto) Seg Neutrophils % Seg Neutrophils # D-Dimer ABG pH POC ABG pCO2 POC ABG pO2 ABG pO2 ABG Base Excess ABG Oxyhemoglobin ABG Sodium ABG Chloride ABG Glucose Oxyhemoglobin Potassium 3.5 L Chloride BUN 6 L Creatinine 0.6 L Glucose 119 H POC Glucose 113 H 111 H Calcium 8.0 L Total Creatine Kinase 2179 H Arterial Blood Glucose Arterial Blood Ionized Calcium 11/19/20 11/20/20 11/20/20 21:36 03:13 05:24 WBC RBC Hgb Hct Plt Count Lymph % (Auto) [place] % (Auto) Lymph # (Auto) [place] # (Auto) Seg Neutrophils % Seg Neutrophils # D-Dimer ABG pH POC ABG pCO2 POC ABG pO2 127.4 H 109.0 H ABG pO2 ABG Base Excess ABG Oxyhemoglobin ABG Sodium ABG Chloride 108.0 H 108.0 H ABG Glucose 133 H 108 H Oxyhemoglobin Potassium Chloride BUN Creatinine Glucose POC Glucose 118 H Calcium Total Creatine Kinase Arterial Blood Glucose 133 H 108 H Arterial Blood Ionized Calcium 11/20/20 11/20/20 11/20/20 07:52 07:52 07:52 WBC RBC Hgb Hct Plt Count 103 L Lymph % (Auto) [place] % (Auto) Lymph # (Auto) [place] # (Auto) Seg Neutrophils % Seg Neutrophils # D-Dimer ABG pH POC ABG pCO2 POC ABG pO2 ABG pO2 ABG Base Excess ABG Oxyhemoglobin ABG Sodium ABG Chloride ABG Glucose Oxyhemoglobin Potassium 3.3 L Chloride 107.2 H BUN 5 L Creatinine 0.5 L Glucose 134 H POC Glucose Calcium 7.7 L Total Creatine Kinase 998 H Arterial Blood Glucose Arterial Blood Ionized Calcium
--- NOTE | 2020-11-20 11:31 | Progress Note ---
Assessment and Plan Assessment and plan: This is a 35-year-old male with multiple sclerosis and epilepsy who was admitted for potential sepsis, COVID-19 PUI and seizures. Status epilepticus Sepsis, POA (possible aspiration) Hypokalemia History of multiple sclerosis -[facility] and neurology consulted, appreciate recommendations -s/p Ativan and midazolam by EMS -Keppra 1500 BID, Oxcarbazepine 300mg BID -PRN Ativan, fentanyl -Wean MV as tolerated, VAP bundle -IV abx -Once TF at goal, will discontinue IVF -Accucheck q6hrs, SSI -COVID PCR negative -Seizure/Aspiration precautions -EEG pending -11/18 CXR shows patchy bilateral pulmonary infiltrates with mild improvement on the left but not worsened on the right, gaseous distention of the stomach -11/18 CTA chest shows bilateral bronchopneumonia (multifocal patchy airspace parenchymal disease left upper and both lower lobes most pronounced within the right lower lobe) -11/18 CT head shows no acute intracranial abnormality, mild diffuse cortical volume loss which is stable but appears advanced for age. No acute changes appreciated since 09/05/2019 exam -Trend CBC and BMP DVT/GI prophylaxis: Heparin subcu, SCDs to bilateral lower extremities while in bed, PPI Disposition: ICU The high probability of a clinically significant, sudden or life threatening deterioration of the [multi] system(s) required my full and direct attention, intervention and personal management. The aggregate critical care time was [35] minutes. This time is in addition to time spent performing reported procedures but includes the following: [x] Data Review and interpretation [x] Patient assessment and monitoring of vital signs [x] Documentation [x] Medication orders and management History Interval history: This is a 35-year-old male with multiple sclerosis and epilepsy who presents to the emergency department on 11/18 with acute seizures (witnessed at home) and was given 2 mg of Ativan and 2 mg of diazepam until cessation after 30 minutes. In the emergency department patient was found to be tachycardic with heart rate of 146, febrile to 102 and was given IV Keppra. Patient was admitted to the hospitalist service with consults to [facility] for potential sepsis, COVID-19 PUI and seizures. 11/19: Patient was intubated yesterday evening for tachycardia and respiratory distress. Ddimer was elevated and he obtained a CTA chest which was read as no PE but bronchopnemonia. His abx will be changed to cefepime from zosyn and continue vancomycin. Ntr consult for TF. Hypokalemia repleted, restarted home trileptal. Given LR bolus and fentanyl bolus in hopes to help with tachycardia. 11/20: Overnight patient had reported hunt secretions from [facility] but this morning when suctioned by RT and RN there were no hunt secretions. CXR which showed interval improvement in bilateral opacities. [facility] plans to extubate tomorrow, RN to restart TF now. Will monitor and drop IVF rate if tolerating. We will replete potassium. EEG ordered for today. Hospitalist Physical - Constitutional Vitals: Temp Pulse Resp BP Pulse Ox 97.2 F L 97 H 16 106/64 96 11/20/20 08:00 11/20/20 11:00 11/20/20 11:00 11/20/20 11:00 11/20/20 11:00 General appearance: Present: no acute distress, other (sedated and resting on the ventilator) - EENT Eyes: Present: PERRL, EOM intact ENT: clear oral mucosa - Neck Neck: Present: normal ROM - Respiratory Respiratory effort: normal Respiratory: bilateral: CTA - Cardiovascular Rhythm: regular Heart Sounds: Present: S1 & S2. Absent: systolic murmur, diastolic murmur - Extremities Extremities: no ischemia, pulses intact, pulses symmetrical, No edema, normal temperature, normal color Peripheral Pulses: within normal limits - Abdominal General gastrointestinal: soft, non-tender, non-distended, normal bowel sounds - Integumentary Integumentary: Present: clear, warm, dry - Psychiatric Psychiatric: cooperative - Neurologic Neurologic: moves all extremities, other (follows commands, PERRL, (+) track/focus) - Allied Health Allied health notes reviewed: nursing, RT, social work Results - Labs CBC & Chem 7: 11/20/20 07:52 11/20/20 07:52 Labs: Laboratory Last Values WBC 9.3 K/mm3 (4.5-11.0) 11/20/20 07:52 RBC 4.58 M/mm3 (3.65-5.03) 11/20/20 07:52 Hgb 13.0 gm/dl (11.8-15.2) 11/20/20 07:52 Hct 38.3 % (35.5-45.6) D 11/20/20 07:52 MCV 84 fl (84-94) 11/20/20 07:52 MCH 28 pg (28-32) 11/20/20 07:52 MCHC 34 % (32-34) 11/20/20 07:52 RDW 14.2 % (13.2-15.2) 11/20/20 07:52 Plt Count 103 K/mm3 (140-440) L 11/20/20 07:52 Lymph % (Auto) 4.0 % (13.4-35.0) L 11/18/20 17:02 [place] % (Auto) 6.9 % (0.0-7.3) 11/18/20 17:02 Eos % (Auto) 0.0 % (0.0-4.3) 11/18/20 17:02 Baso % (Auto) 0.1 % (0.0-1.8) 11/18/20 17:02 Lymph # (Auto) 0.4 K/mm3 (1.2-5.4) L 11/18/20 17:02 [place] # (Auto) 0.7 K/mm3 (0.0-0.8) 11/18/20 17:02 Eos # (Auto) 0.0 K/mm3 (0.0-0.4) 11/18/20 17:02 Baso # (Auto) 0.0 K/mm3 (0.0-0.1) 11/18/20 17:02 Seg Neutrophils % 89.0 % (40.0-70.0) H 11/18/20 17:02 Seg Neutrophils # 9.4 K/mm3 (1.8-7.7) H 11/18/20 17:02 D-Dimer 1161.92 ng/mlDDU (0-234) H 11/18/20 17:02 ABG pH 7.405 (7.320-7.450) 11/20/20 03:13 POC ABG pCO2 37.7 mmHg (32.0-48.0) 11/20/20 03:13 ABG pCO2 34.3 mm Hg 11/18/20 18:52 POC ABG pO2 109.0 mmHg (83-108) H 11/20/20 03:13 ABG pO2 71.1 mm Hg (80.0-90.0) L 11/18/20 18:52 POC ABG HCO3 23.1 11/20/20 03:13 ABG HCO3 20.3 mmol/L (20.0-26.0) 11/18/20 18:52 ABG O2 Saturation 98.2 (0-100) 11/20/20 03:13 ABG O2 Content 19.6 (0.0-44) 11/18/20 18:52 POC ABG Base Excess -1.3 11/20/20 03:13 ABG Base Excess -3.8 mmol/L (-2.0-3.0) L 11/18/20 18:52 ABG Hemoglobin 14.2 (12.0-17.5) 11/20/20 03:13 ABG Oxyhemoglobin 97.4 (94-98) 11/20/20 03:13 ABG Carboxyhemoglobin 1.1 % (0.0-5.0) 11/18/20 18:52 ABG Methemoglobin 0 (0.0-1.5) 11/20/20 03:13 ABG Sodium 139.2 mmol/L (136.0-145.0) 11/20/20 03:13 ABG Potassium 3.6 mmol/L (3.40-4.50) 11/20/20 03:13 ABG Chloride 108.0 mmol/L (98-107) H 11/20/20 03:13 ABG Glucose 108 mg/dL (65-95) H 11/20/20 03:13 Oxyhemoglobin 93.7 % (95.0-99.0) L 11/18/20 18:52 Carboxyhemoglobin 0.8 (0.5-1.5) 11/20/20 03:13 FiO2 50 % 11/18/20 18:52 FiO2 % 35.0 11/20/20 03:13 Sodium 139 mmol/L (137-145) 11/20/20 07:52 Potassium 3.3 mmol/L (3.6-5.0) L 11/20/20 07:52 Chloride 107.2 mmol/L (98-107) H 11/20/20 07:52 Carbon Dioxide 24 mmol/L (22-30) 11/20/20 07:52 Anion Gap 11 mmol/L 11/20/20 07:52 BUN 5 mg/dL (9-20) L 11/20/20 07:52 Creatinine 0.5 mg/dL (0.8-1.3) L 11/20/20 07:52 Estimated GFR > 60 ml/min 11/20/20 07:52 BUN/Creatinine Ratio 10 % 11/20/20 07:52 Glucose 134 mg/dL (75-100) H 11/20/20 07:52 POC Glucose 118 mg/dL (70-105) H 11/20/20 05:24 Lactic Acid 1.90 mmol/L (0.7-2.0) 11/18/20 17:02 Calcium 7.7 mg/dL (8.4-10.2) L 11/20/20 07:52 Magnesium 2.10 mg/dL (1.7-2.3) 11/18/20 07:09 Total Creatine Kinase 998 units/L (55-170) H 11/20/20 07:52 TSH 1.730 mlU/mL (0.270-4.200) 11/18/20 07:09 Free T4 1.19 ng/dL (0.76-1.46) 11/18/20 07:09 Arterial Blood Glucose 108 mg/dL (65-95) H 11/20/20 03:13 Arterial Blood Ionized Calcium 4.7 mg/dL (4.6-5.3) 11/20/20 03:13 Urine Color Straw (Yellow) 11/18/20 10:50 Urine Turbidity Clear (Clear) 11/18/20 10:50 Urine pH 6.0 (5.0-7.0) 11/18/20 10:50 Ur Specific [place] 1.009 (1.003-1.030) 11/18/20 10:50 Urine Protein <15 mg/dl mg/dL (Negative) 11/18/20 10:50 Urine Glucose (UA) Neg mg/dL (Negative) 11/18/20 10:50 Urine Ketones 20 mg/dL (Negative) 11/18/20 10:50 Urine Blood Sm (Negative) 11/18/20 10:50 Urine Nitrite Neg (Negative) 11/18/20 10:50 Urine Bilirubin Neg (Negative) 11/18/20 10:50 Urine Urobilinogen < 2.0 mg/dL (<2.0) 11/18/20 10:50 Ur Leukocyte Esterase Neg (Negative) 11/18/20 10:50 Urine WBC (Auto) 1.0 /HPF (0.0-6.0) 11/18/20 10:50 Urine RBC (Auto) 1.0 /HPF (0.0-6.0) 11/18/20 10:50 Coronavirus (PCR) Negative (Negative) 11/19/20 Unknown Microbiology: Microbiology 11/18/20 18:56 Tracheal Aspirate Sputum Culture - Preliminary 11/18/20 12:37 Peripheral/Venous Blood Culture - Preliminary NO GROWTH AFTER 24 HOURS 11/18/20 12:37 Peripheral/Venous Blood Culture - Preliminary NO GROWTH AFTER 24 HOURS [place]/IV: Voiding Method Indwelling Catheter Active Medications - Current Medications Current Medications: Generic Name Dose Route Start Last Admin Trade Name Freq PRN Reason Stop Dose Admin Acetaminophen 650 mg 11/18/20 12:15 Acetaminophen 325 Mg Tab PO Q4H PRN Pain MILD(1-3)/Fever >100.5/KURTZ Lipase/Protease/Amylase 1 each 11/19/20 12:55 Lipase 10,500/Protease 25,000/Amylase 43,750 (Units) Dr Cap FEEDTUBE PRN PRN For Clogged Feeding Tube Dextrose 50 ml 11/19/20 12:58 Dextrose 50% In Water (25gm) 50 Ml Syringe IV Q30MIN PRN Hypoglycemia Protocol Fentanyl 50 mcg 11/20/20 07:49 11/20/20 09:47 Fentanyl 100 Mcg/2 Ml Inj IV 50 mcg Q4HR PRN Administration Pain , Severe (7-10) Heparin Sodium (Porcine) 5,000 unit 11/18/20 22:00 11/20/20 09:46 Heparin 5,000 Unit/1 Ml Vial SUB-Q 5,000 unit Q12HR PIERRE Administration Hydrophilic Ointment 1 applic 11/18/20 17:08 Lip Therapy Vaseline TP Q2HR PRN Dry Lips Vancomycin HCl 1 gm in 250 mls @ 166.667 mls/hr 11/18/20 13:00 11/20/20 03:25 Vancomycin/Ns 1 Gm/250 Ml IV 166.667 mls/hr Q12H PIERRE Administration Protocol Levetiracetam 1,500 mg/ 115 mls @ 400 mls/hr 11/18/20 17:00 11/20/20 05:58 Dextrose IV 400 mls/hr Q12H PIERRE Administration Dextrose/Sodium Chloride 1,000 mls @ 75 mls/hr 11/18/20 13:00 11/20/20 03:25 D5ns IV 75 mls/hr DIRECT PIERRE Administration Propofol 1,000 mg in 100 mls @ 2.565 mls/hr 11/18/20 18:00 11/20/20 10:33 Diprivan 10 Mg/Ml IV 30 mcg/kg/min TITR PIERRE 15.39 mls/hr Administration Protocol 5 MCG/KG/MIN Cefepime HCl 2 gm in 100 mls @ 200 mls/hr 11/19/20 13:00 11/20/20 06:21 Cefepime/Ns 2 Gm/100 Ml IV 11/20/20 21:29 200 mls/hr Q8H PIERRE Administration Protocol Insulin Human Lispro 0 unit 11/19/20 18:00 11/20/20 06:19 Insulin Lispro 100 Unit/Ml SUB-Q Not Given Q6HR [facility] Protocol Lorazepam 2 mg 11/18/20 12:38 Lorazepam 2 Mg/Ml Vial IV Q2MIN PRN Seizures Multi-Ingred Cream/Lotion/Oil/Oint 1 applic 11/18/20 17:08 Mineral Oil/Petrolatum, White Ophth Oint 3.5 Gm OU Q4HR PRN Dry Eye(s) Naloxone HCl 0.1 mg 11/18/20 12:15 Naloxone 0.4 Mg/1 Ml Inj IV Q2MIN PRN Res Rate </= 8 or 02 SAT < 92% Ondansetron HCl 4 mg 11/18/20 12:15 Ondansetron 4 Mg/2 Ml Inj IV Q8H PRN Nausea And Vomiting Oxcarbazepine 300 mg 11/19/20 13:00 11/20/20 09:46 Oxcarbazepine 300 Mg Tab PO 300 mg BID PIERRE Administration Simple Syrup 15 ml 11/19/20 12:55 Simple Syrup 15 Ml FEEDTUBE PRN PRN Hypoglycemia Simple Syrup 30 ml 11/19/20 12:55 Simple Syrup 15 Ml FEEDTUBE PRN PRN Hypoglycemia Sodium Bicarbonate 325 mg 11/19/20 12:55 Sodium Bicarbonate 325 Mg Tab FEEDTUBE PRN PRN For Clogged Feeding Tube Sodium Chloride 10 ml 11/18/20 22:00 11/20/20 09:47 Sodium Chloride 0.9% 10 Ml Flush Syringe IV 10 ml BID PIERRE Administration Sodium Chloride 10 ml 11/18/20 12:15 Sodium Chloride 0.9% 10 Ml Flush Syringe IV PRN PRN LINE FLUSH Nutrition/Malnutrition Assess - Dietary Evaluation Nutrition/Malnutrition Findings: Nutrition Notes Start: 11/19/20 09:46 Freq: Status: Active Protocol: Document 11/20/20 09:17 LP (Rec: 11/20/20 09:20 LP [id number]) Nutrition Notes Need for Assessment generated from: MD Order Initial or Follow up Brief Note Subjective/Other Information Consult for TF. Pt started on TF yesterday, followed note recs. Nutrition Intervention Nutrition Support: Osmolite 1.5 at 60ml/hr Flush 180ml q4h Kcal 2,160 Protein (gm) 90 Fluid (mL) 1,097 Follow-Up By: 11/21/20 Additional Comments Follow for TF start/tolerance
[2020-11-20] MEDS ORDERED: VANCOMYCIN PHARMACY TO DOSE IV SCH (13:00)
--- NOTE | 2020-11-20 15:10 | Event Note ---
I called the patients father, Lloyd Merino at [phone] two times and he answered on the second call. He stated Adair Merino was diagnosed with MS at age 16 but not on medication and has an appointment to see the neurologist in December. I informed him [facility] will attempt extubation likely tomorrow and the order for EEG.
[2020-11-21] MEDS: INSULIN LISPRO 100 UNIT/ML SUB-Q SCH ×2 (00:05→06:15)
[2020-11-21] MEDS: VANCOMYCIN/NS 1 GM/250 ML 1 GM/250 ML BAG IV SCH (02:32)
[2020-11-21] MEDS: CEFEPIME/NS 2 GM/100 ML 2 GM/100 ML BAG IV SCH (05:55)
[2020-11-21] MEDS: D5W/0.9% NACL 1,000 ML IV SCH (05:55)
[2020-11-21] MEDS: levETIRAcetam 1,500 MG in DEXTROSE 5% IN WATER 100 ML IV SCH ×2 (05:56→17:02)
--- NOTE | 2020-11-21 08:36 | Consultation ---
History of Present Illness Consult date: 11/21/20 Reason for Consult: status epilepticus History of present illness: Status epilepticus History of present illness: 35-year-old -Congolese male with past medical history of multiple sclerosis since he is 16 ys old , and epilepsy who presents with acute seizures. Spoke with the father, mother states this morning, he saw the patient and patient was seizing, EMS was called, patient was given 2 mg of Ativan and 2 mg of midazolam until seizures ceased after 30 minutes. Patient was transferred to [facility] where he was found to be tachycardic, EKG with heart rate of 146, no ischemia. Patient was febrile of 102. Patient was placed on IV Keppra 1500 mg bid and trileptal 300 mg bid . According to the father, patient is compliant with his seizure medications. Patient met sepsis protocol, patient placed on IV antibiotics, Zosyn and vancomycin and given fluids. Covid swab is pending, isolation precautions for now. Patient will be transferred to the MICU for close monitoring and placed on seizure precautions. I am asked to see pt. today due to hx of seizure and MS CT brain is unremarkable he is awake respond to command no reported seizure , he is intubated on diprivan 30 Mc According to record he was on Keppra and Vimpat Past History Past Medical History: other (Epilepsy, multiple sclerosis) Past Surgical History: Other (Cannot obtain due to patient's mental condition) Social history: other (Can obtain due to patient's mental condition) Family history: no significant family history Medications and Allergies Allergies Allergy/AdvReac Type Severity Reaction Status Date / Time No Known Allergies Allergy Verified 02/09/18 14:00 Home Medications Medication Instructions Recorded Confirmed Last Taken Type Lacosamide [Vimpat] 100 mg PO Q12HR #60 tablet 09/08/19 Unknown Rx levETIRAcetam [Keppra TAB] 3 tab PO BID #180 tablet 09/08/19 11/18/20 Unknown Rx Active Meds: Active Medications Acetaminophen (Acetaminophen 325 Mg Tab) 650 mg PO Q4H PRN PRN Reason: Pain MILD(1-3)/Fever >100.5/KURTZ Heparin Sodium (Porcine) (Heparin 5,000 Unit/1 Ml Vial) 5,000 unit SUB-Q Q12HR PIERRE Piperacillin Sod/Tazobactam Sod (Zosyn/Ns 3.375gm/50ml) 3.375 gm in 50 mls @ 100 mls/hr IV Q8H PIERRE; Protocol Vancomycin HCl (Vancomycin/Ns 1 Gm/250 Ml) 1 gm in 250 mls @ 166.667 mls/hr IV Q12H PIERRE; Protocol Last Admin: 11/18/20 13:47 Dose: 166.667 mls/hr Documented by: Levetiracetam 1,500 mg/ (Dextrose) 115 mls @ 400 mls/hr IV Q12H PIERRE Dextrose/Sodium Chloride (D5ns) 1,000 mls @ 75 mls/hr IV DIRECT PIERRE Lorazepam (Lorazepam 2 Mg/Ml Vial) 2 mg IV Q2MIN PRN PRN Reason: Seizures Morphine Sulfate (Morphine 2 Mg/1 Ml Inj) 2 mg IV Q4H PRN PRN Reason: Pain, Moderate (4-6) Morphine Sulfate (Morphine 4 Mg/1 Ml Inj) 4 mg IV Q4H PRN PRN Reason: Pain , Severe (7-10) Naloxone HCl (Naloxone 0.4 Mg/1 Ml Inj) 0.1 mg IV Q2MIN PRN PRN Reason: Res Rate </= 8 or 02 SAT < 92% Ondansetron HCl (Ondansetron 4 Mg/2 Ml Inj) 4 mg IV Q8H PRN PRN Reason: Nausea And Vomiting Sodium Chloride (Sodium Chloride 0.9% 10 Ml Flush Syringe) 10 ml IV BID PIERRE Sodium Chloride (Sodium Chloride 0.9% 10 Ml Flush Syringe) 10 ml IV PRN PRN PRN Reason: LINE FLUSH Review of Systems ROS unobtainable: due to mental status Past History Past Medical History: other (Epilepsy, multiple sclerosis) Past Surgical History: Other (Cannot obtain due to patient's mental condition) Social history: other (Can obtain due to patient's mental condition) Family history: no significant family history Medications and Allergies Allergies Allergy/AdvReac Type Severity Reaction Status Date / Time No Known Allergies Allergy Verified 02/09/18 14:00 Home Medications Medication Instructions Recorded Confirmed Last Taken Type OXcarbazepine [Trileptal] 300 mg PO BID 11/19/20 11/19/20 Unknown History levETIRAcetam [Keppra] 1,500 mg PO BID 11/19/20 11/19/20 Unknown History Active Meds: Active Medications Acetaminophen (Acetaminophen 325 Mg Tab) 650 mg PO Q4H PRN PRN Reason: Pain MILD(1-3)/Fever >100.5/KURTZ Lipase/Protease/Amylase (Lipase 10,500/Protease 25,000/Amylase 43,750 (Units) Dr Joya) 1 each FEEDTUBE PRN PRN PRN Reason: For Clogged Feeding Tube Dextrose (Dextrose 50% In Water (25gm) 50 Ml Syringe) 50 ml IV Q30MIN PRN; Protocol PRN Reason: Hypoglycemia Fentanyl (Fentanyl 100 Mcg/2 Ml Inj) 50 mcg IV Q4HR PRN PRN Reason: Pain , Severe (7-10) Last Admin: 11/20/20 09:47 Dose: 50 mcg Documented by: Heparin Sodium (Porcine) (Heparin 5,000 Unit/1 Ml Vial) 5,000 unit SUB-Q Q12HR PIERRE Last Admin: 11/20/20 21:10 Dose: 5,000 unit Documented by: Hydrophilic Ointment (Lip Therapy Vaseline) 1 applic TP Q2HR PRN PRN Reason: Dry Lips Vancomycin HCl (Vancomycin/Ns 1 Gm/250 Ml) 1 gm in 250 mls @ 166.667 mls/hr IV Q12H PIERRE; Protocol Last Admin: 11/21/20 02:32 Dose: 166.667 mls/hr Documented by: Levetiracetam 1,500 mg/ (Dextrose) 115 mls @ 400 mls/hr IV Q12H PIERRE Last Admin: 11/21/20 05:56 Dose: 400 mls/hr Documented by: Dextrose/Sodium Chloride (D5ns) 1,000 mls @ 75 mls/hr IV DIRECT PIERRE Last Admin: 11/21/20 05:55 Dose: 75 mls/hr Documented by: Propofol (Diprivan 10 Mg/Ml) 1,000 mg in 100 mls @ 2.565 mls/hr IV TITR PIERRE; Protocol Last Admin: 11/21/20 05:55 Dose: 30 mcg/kg/min, 15.39 mls/hr Documented by: Cefepime HCl (Cefepime/Ns 2 Gm/100 Ml) 2 gm in 100 mls @ 200 mls/hr IV Q8H PIERRE; Protocol Stop: 11/23/20 05:29 Last Admin: 11/21/20 05:55 Dose: 200 mls/hr Documented by: Insulin Human Lispro (Insulin Lispro 100 Unit/Ml) 0 unit SUB-Q Q6HR [facility]; Protocol Last Admin: 11/21/20 06:15 Dose: Not Given Documented by: Lorazepam (Lorazepam 2 Mg/Ml Vial) 2 mg IV Q2MIN PRN PRN Reason: Seizures Multi-Ingred Cream/Lotion/Oil/Oint (Mineral Oil/Petrolatum, White Ophth Oint 3.5 Gm) 1 applic OU Q4HR PRN PRN Reason: Dry Eye(s) Naloxone HCl (Naloxone 0.4 Mg/1 Ml Inj) 0.1 mg IV Q2MIN PRN PRN Reason: Res Rate </= 8 or 02 SAT < 92% Ondansetron HCl (Ondansetron 4 Mg/2 Ml Inj) 4 mg IV Q8H PRN PRN Reason: Nausea And Vomiting Oxcarbazepine (Oxcarbazepine 300 Mg Tab) 300 mg PO BID [facility] Last Admin: 11/20/20 21:10 Dose: 300 mg Documented by: Simple Syrup (Simple Syrup 15 Ml) 15 ml FEEDTUBE PRN PRN PRN Reason: Hypoglycemia Simple Syrup (Simple Syrup 15 Ml) 30 ml FEEDTUBE PRN PRN PRN Reason: Hypoglycemia Sodium Bicarbonate (Sodium Bicarbonate 325 Mg Tab) 325 mg FEEDTUBE PRN PRN PRN Reason: For Clogged Feeding Tube Sodium Chloride (Sodium Chloride 0.9% 10 Ml Flush Syringe) 10 ml IV BID [facility] Last Admin: 11/20/20 21:10 Dose: 10 ml Documented by: Sodium Chloride (Sodium Chloride 0.9% 10 Ml Flush Syringe) 10 ml IV PRN PRN PRN Reason: LINE FLUSH Physical Examination - Vital Signs Vital Signs: Vital Signs Pulse Resp BP Pulse Ox 147 H 13 128/70 91 11/18/20 06:25 11/18/20 06:25 11/18/20 06:25 11/18/20 06:25 - Constitutional General appearance: uncomfortable, other (intubated slightly restless , follow command) - EENT EENT: Present: PERRL, other (decrese eye movment bilateral with significant Nystagmus bilateral) - Respiratory Respiratory: Present: chest non-tender, lungs clear, rhonchi - Cardiovascular Cardiovascular: Present: regular rate, normal S1, normal S2 Extremities: Present: no peripheral edema bilatateraly - Gastrointestinal Gastrointestinal: Present: normoactive bowel sounds - Integumentary Integumentary: Present: normal - Neurologic Cranial nerve examination: PERRL, other (limited EOM bialteral with nystagmus ) Speech examination: other (intubated) Sensorimotor examination: other (can move right side with left side weakness uper and lower planter is down , he is restrained due to agitation and it is difficult to get exact level of weakness ) Results - Laboratory Findings CBC and BMP: 11/20/20 07:52 11/21/20 08:12 Abnormal Lab Findings: Abnormal Labs 11/18/20 11/18/20 11/18/20 07:05 07:09 07:09 WBC 12.0 H RBC 5.04 H Hgb Hct Plt Count Lymph % (Auto) 2.2 L [place] % (Auto) 8.5 H Lymph # (Auto) 0.3 L [place] # (Auto) 1.0 H Seg Neutrophils % 89.0 H Seg Neutrophils # 10.7 H D-Dimer ABG pH POC ABG pCO2 POC ABG pO2 ABG pO2 ABG Base Excess ABG Oxyhemoglobin ABG Sodium ABG Chloride ABG Glucose Oxyhemoglobin Potassium Chloride BUN Creatinine Glucose 66 L POC Glucose Calcium 8.3 L Total Creatine Kinase 200 H Arterial Blood Glucose Arterial Blood Ionized Calcium Vancomycin Trough 11/18/20 11/18/20 11/18/20 17:02 17:02 18:52 WBC RBC 5.41 H Hgb 15.4 H Hct 45.7 H Plt Count 120 L Lymph % (Auto) 4.0 L [place] % (Auto) Lymph # (Auto) 0.4 L [place] # (Auto) Seg Neutrophils % 89.0 H Seg Neutrophils # 9.4 H D-Dimer 1161.92 H ABG pH POC ABG pCO2 POC ABG pO2 ABG pO2 71.1 L ABG Base Excess -3.8 L ABG Oxyhemoglobin ABG Sodium ABG Chloride ABG Glucose Oxyhemoglobin 93.7 L Potassium Chloride BUN Creatinine Glucose POC Glucose Calcium Total Creatine Kinase Arterial Blood Glucose Arterial Blood Ionized Calcium Vancomycin Trough 11/18/20 11/19/20 11/19/20 19:28 03:57 05:16 WBC RBC Hgb Hct Plt Count Lymph % (Auto) [place] % (Auto) Lymph # (Auto) [place] # (Auto) Seg Neutrophils % Seg Neutrophils # D-Dimer ABG pH 7.482 H POC ABG pCO2 26.7 L POC ABG pO2 142.7 H ABG pO2 ABG Base Excess ABG Oxyhemoglobin 98.5 H ABG Sodium 135.9 L ABG Chloride 108.0 H ABG Glucose 119 H Oxyhemoglobin Potassium Chloride BUN Creatinine Glucose POC Glucose 118 H 123 H Calcium Total Creatine Kinase Arterial Blood Glucose 119 H Arterial Blood Ionized Calcium 4.5 L Vancomycin Trough 11/19/20 11/19/20 11/19/20 06:47 09:36 12:20 WBC RBC Hgb Hct Plt Count Lymph % (Auto) [place] % (Auto) Lymph # (Auto) [place] # (Auto) Seg Neutrophils % Seg Neutrophils # D-Dimer ABG pH POC ABG pCO2 POC ABG pO2 ABG pO2 ABG Base Excess ABG Oxyhemoglobin ABG Sodium ABG Chloride ABG Glucose Oxyhemoglobin Potassium 3.5 L Chloride BUN 6 L Creatinine 0.6 L Glucose 119 H POC Glucose 113 H 111 H Calcium 8.0 L Total Creatine Kinase 2179 H Arterial Blood Glucose Arterial Blood Ionized Calcium Vancomycin Trough 11/19/20 11/20/20 11/20/20 21:36 03:13 05:24 WBC RBC Hgb Hct Plt Count Lymph % (Auto) [place] % (Auto) Lymph # (Auto) [place] # (Auto) Seg Neutrophils % Seg Neutrophils # D-Dimer ABG pH POC ABG pCO2 POC ABG pO2 127.4 H 109.0 H ABG pO2 ABG Base Excess ABG Oxyhemoglobin ABG Sodium ABG Chloride 108.0 H 108.0 H ABG Glucose 133 H 108 H Oxyhemoglobin Potassium Chloride BUN Creatinine Glucose POC Glucose 118 H Calcium Total Creatine Kinase Arterial Blood Glucose 133 H 108 H Arterial Blood Ionized Calcium Vancomycin Trough 11/20/20 11/20/20 11/20/20 07:52 07:52 07:52 WBC RBC Hgb Hct Plt Count 103 L Lymph % (Auto) [place] % (Auto) Lymph # (Auto) [place] # (Auto) Seg Neutrophils % Seg Neutrophils # D-Dimer ABG pH POC ABG pCO2 POC ABG pO2 ABG pO2 ABG Base Excess ABG Oxyhemoglobin ABG Sodium ABG Chloride ABG Glucose Oxyhemoglobin Potassium 3.3 L Chloride 107.2 H BUN 5 L Creatinine 0.5 L Glucose 134 H POC Glucose Calcium 7.7 L Total Creatine Kinase 998 H Arterial Blood Glucose Arterial Blood Ionized Calcium Vancomycin Trough 11/20/20 11/20/20 11/21/20 17:38 23:13 01:12 WBC RBC Hgb Hct Plt Count Lymph % (Auto) [place] % (Auto) Lymph # (Auto) [place] # (Auto) Seg Neutrophils % Seg Neutrophils # D-Dimer ABG pH POC ABG pCO2 POC ABG pO2 ABG pO2 ABG Base Excess ABG Oxyhemoglobin ABG Sodium ABG Chloride ABG Glucose Oxyhemoglobin Potassium Chloride BUN Creatinine Glucose POC Glucose 111 H 112 H Calcium Total Creatine Kinase Arterial Blood Glucose Arterial Blood Ionized Calcium Vancomycin Trough < 4.0 L 11/21/20 04:08 WBC RBC Hgb Hct Plt Count Lymph % (Auto) [place] % (Auto) Lymph # (Auto) [place] # (Auto) Seg Neutrophils % Seg Neutrophils # D-Dimer ABG pH POC ABG pCO2 POC ABG pO2 130.4 H ABG pO2 ABG Base Excess ABG Oxyhemoglobin ABG Sodium ABG Chloride 109.0 H ABG Glucose 126 H Oxyhemoglobin Potassium Chloride BUN Creatinine Glucose POC Glucose Calcium Total Creatine Kinase Arterial Blood Glucose 126 H Arterial Blood Ionized Calcium Vancomycin Trough Assessment and Plan Assessment and Plan Assessment and plan: 35-year-old -[place] male who presents with status epilepticus , he is with hx of seizure and MS untreated According to record he is compling with his seizure medications #Status epilepticus Patient given Ativan and midazolam in the field, seizures abated Patient placed on Keppra 1500 mg twice daily IV and Vimpat 100 mg IV twice daily Critical care consulted for close monitoring, Dysphagia screen, patient n.p.o. at this time -Controlled on Keppra and Vimpat - will advance vimpat to 150 mg bid -EEG today -Consider MRI brain with Gd #Sepsis with unknown etiology Patient placed on Zosyn and vancomycin Blood cultures pending Urine and urine culture pending Trend leukocytosis/CBC #Fever of unknown origin Possibly secondary to status epilepticus We will obtain Covid screen with appropriate isolation #History of multiple sclerosis No intervention at this time, continue to follow -MRI brain with Gd - he is scheduled to see neurology as out pt. - he is on no treatment as per record. #Hypoglycemia D5 normal saline Accu-Cheks #Tachycardia Secondary to sepsis, slowly resolving with fluids Continue fluids CODE STATUS: Full DVT prophylaxis: Heparin Advance Directives: Yes VTE prophylaxis?: Chemical Plan of care discussed with patient/family: Yes
[2020-11-21 08:47] LABS: Blood Urea Nitrogen 4 mg/dL (9-20); Hemolysis Index 20
[2020-11-21 09:21] LABS: BUN/Creatinine Ratio 10
[2020-11-21] MEDS: LACOSAMIDE 150 MG in SODIUM CHLORIDE 0.9% 100 ML IV SCH ×2 (09:53→21:35)
[2020-11-21] MEDS: HEPARIN 5,000 UNIT/1 ML VIAL SUB-Q SCH ×2 (09:53→21:35)
--- NOTE | 2020-11-21 09:59 | Progress Note ---
Assessment and Plan Assessment and plan: This is a 35-year-old male with multiple sclerosis and epilepsy who presents to the emergency department on 11/18 with acute seizures (witnessed at home) and was given 2 mg of Ativan and 2 mg of diazepam until cessation after 30 minutes. In the emergency department patient was found to be tachycardic with heart rate of 146, febrile to 102 and was given IV Keppra. Patient was admitted to the hospitalist service with consults to [facility] for potential sepsis, COVID-19 PUI and seizures. Per family patient has a history of MS diagnosed at age of 16 not on any medications. Had an outpatient scheduled neuro evaluation -11/18 CXR shows patchy bilateral pulmonary infiltrates with mild improvement on the left but not worsened on the right, gaseous distention of the stomach -11/18 CTA chest shows bilateral bronchopneumonia (multifocal patchy airspace parenchymal disease left upper and both lower lobes most pronounced within the right lower lobe) -11/18 CT head shows no acute intracranial abnormality, mild diffuse cortical volume loss which is stable but appears advanced for age. No acute changes appr eciated since 09/05/2019 exam -Trend CBC and BMP 11/19: Patient was intubated yesterday evening for tachycardia and respiratory distress. Ddimer was elevated and he obtained a CTA chest which was read as no PE but bronchopnemonia. His abx will be changed to cefepime from zosyn and continue vancomycin. Ntr consult for TF. Hypokalemia repleted, restarted home trileptal. Given LR bolus and fentanyl bolus in hopes to help with tachycardia. 11/20: Overnight patient had reported hunt secretions from OETT but this morning when suctioned by RT and RN there were no hunt secretions. CXR which showed interval improvement in bilateral opacities. [facility] plans to extubate tomorrow, RN to restart TF now. Will monitor and drop IVF rate if tolerating. We will replete potassium. EEG ordered for today. 11/21: Pulmonary input noted patient continues on the ventilator. Discussed with neurologist at the bedside today plan for EEG and MRI especially considering left-sided weakness. He is also readjusted the patient's seizure meds to the home dose stopping Trileptal and starting back on Vimpat as patient takes at home. Building Custodial Supervisor plans to reevaluate mechanical ventilator for possible extubation today. Leukocytosis improved if no culture growth we will discuss with potato pancake frier about possible discontinuing antibiotics and monitoring off antibiotics. Status epilepticus Acute respiratory failure Fever of unknown origin Sepsis, POA (possible aspiration) Hypokalemia History of multiple sclerosis -[facility] and neurology consulted, appreciate recommendations -s/p Ativan and midazolam by EMS -Keppra 1500 BID, Oxcarbazepine 300mg BID -PRN Ativan, fentanyl -Wean MV as tolerated, VAP bundle -IV abx -Once TF at goal, will discontinue IVF -Accucheck q6hrs, SSI -COVID PCR negative -Seizure/Aspiration precautions -EEG pending DVT/GI prophylaxis: Heparin subcu, SCDs to bilateral lower extremities while in bed, PPI Disposition: ICU The high probability of a clinically significant, sudden or life threatening deterioration of the [multi] system(s) required my full and direct attention, intervention and personal management. The aggregate critical care time was [35] minutes. This time is in addition to time spent performing reported procedures but includes the following: [x] Data Review and interpretation [x] Patient assessment and monitoring of vital signs [x] Documentation [x] Medication orders and management History Interval history: Patient seen and examined remains intubated. Intermittent tachycardia possible underlying agitation no new seizures documented today. No overnight issues reported. Hospitalist Physical - Physical exam Narrative exam: General appearance: Present: no acute distress, resting on the vent follows commands although markedly lethargic, marked temporal wasting - EENT Eyes: Present: PERRL, EOM intact nystagmus ENT: clear oral mucosa - Neck Neck: Present: normal ROM - Respiratory Respiratory effort: normal Respiratory: bilateral: CTA - Cardiovascular Rhythm: regular Heart Sounds: Present: S1 & S2. Absent: systolic murmur, diastolic murmur - Extremities Extremities: no ischemia, pulses intact, pulses symmetrical, No edema, normal temperature, normal color Peripheral Pulses: within normal limits - Abdominal General gastrointestinal: soft, non-tender, non-distended, normal bowel sounds - Integumentary Integumentary: Present: clear, warm, dry - Psychiatric Psychiatric: cooperative - Neurologic Neurologic: moves all extremities, although limited by left other (follows commands, PERRL, (+) track/focus) - Allied Health Allied health notes reviewed: nursing, RT, social work - Constitutional Vitals: Temp Pulse Resp BP Pulse Ox 99.7 F H 97 H 20 140/94 100 11/21/20 08:00 11/21/20 08:50 11/21/20 08:00 11/21/20 08:50 11/21/20 08:50 General appearance: Present: no acute distress, other (sedated and resting on the ventilator) Results - Labs CBC & Chem 7: 11/20/20 07:52 11/21/20 08:12 Labs: Laboratory Last Values WBC 9.3 K/mm3 (4.5-11.0) 11/20/20 07:52 RBC 4.58 M/mm3 (3.65-5.03) 11/20/20 07:52 Hgb 13.0 gm/dl (11.8-15.2) 11/20/20 07:52 Hct 38.3 % (35.5-45.6) D 11/20/20 07:52 MCV 84 fl (84-94) 11/20/20 07:52 MCH 28 pg (28-32) 11/20/20 07:52 MCHC 34 % (32-34) 11/20/20 07:52 RDW 14.2 % (13.2-15.2) 11/20/20 07:52 Plt Count 103 K/mm3 (140-440) L 11/20/20 07:52 Lymph % (Auto) 4.0 % (13.4-35.0) L 11/18/20 17:02 [place] % (Auto) 6.9 % (0.0-7.3) 11/18/20 17:02 Eos % (Auto) 0.0 % (0.0-4.3) 11/18/20 17:02 Baso % (Auto) 0.1 % (0.0-1.8) 11/18/20 17:02 Lymph # (Auto) 0.4 K/mm3 (1.2-5.4) L 11/18/20 17:02 [place] # (Auto) 0.7 K/mm3 (0.0-0.8) 11/18/20 17:02 Eos # (Auto) 0.0 K/mm3 (0.0-0.4) 11/18/20 17:02 Baso # (Auto) 0.0 K/mm3 (0.0-0.1) 11/18/20 17:02 Seg Neutrophils % 89.0 % (40.0-70.0) H 11/18/20 17:02 Seg Neutrophils # 9.4 K/mm3 (1.8-7.7) H 11/18/20 17:02 D-Dimer 1161.92 ng/mlDDU (0-234) H 11/18/20 17:02 ABG pH 7.383 (7.320-7.450) 11/21/20 04:08 POC ABG pCO2 40.6 mmHg (32.0-48.0) 11/21/20 04:08 ABG pCO2 34.3 mm Hg 11/18/20 18:52 POC ABG pO2 130.4 mmHg (83-108) H 11/21/20 04:08 ABG pO2 71.1 mm Hg (80.0-90.0) L 11/18/20 18:52 POC ABG HCO3 23.6 11/21/20 04:08 ABG HCO3 20.3 mmol/L (20.0-26.0) 11/18/20 18:52 ABG O2 Saturation 98.6 (0-100) 11/21/20 04:08 ABG O2 Content 19.6 (0.0-44) 11/18/20 18:52 POC ABG Base Excess -1.3 11/21/20 04:08 ABG Base Excess -3.8 mmol/L (-2.0-3.0) L 11/18/20 18:52 ABG Hemoglobin 12.7 (12.0-17.5) 11/21/20 04:08 ABG Oxyhemoglobin 97.8 (94-98) 11/21/20 04:08 ABG Carboxyhemoglobin 1.1 % (0.0-5.0) 11/18/20 18:52 ABG Methemoglobin 0.3 (0.0-1.5) 11/21/20 04:08 ABG Sodium 140.8 mmol/L (136.0-145.0) 11/21/20 04:08 ABG Potassium 3.4 mmol/L (3.40-4.50) 11/21/20 04:08 ABG Chloride 109.0 mmol/L (98-107) H 11/21/20 04:08 ABG Glucose 126 mg/dL (65-95) H 11/21/20 04:08 Oxyhemoglobin 93.7 % (95.0-99.0) L 11/18/20 18:52 Carboxyhemoglobin 0.5 (0.5-1.5) 11/21/20 04:08 FiO2 50 % 11/18/20 18:52 FiO2 % 35.0 11/21/20 04:08 Sodium 142 mmol/L (137-145) 11/21/20 08:12 Potassium 4.2 mmol/L (3.6-5.0) D 11/21/20 08:12 Chloride 108.7 mmol/L (98-107) H 11/21/20 08:12 Carbon Dioxide 26 mmol/L (22-30) 11/21/20 08:12 Anion Gap 12 mmol/L 11/21/20 08:12 BUN 4 mg/dL (9-20) L 11/21/20 08:12 Creatinine 0.4 mg/dL (0.8-1.3) L 11/21/20 08:12 Estimated GFR > 60 ml/min 11/21/20 08:12 BUN/Creatinine Ratio 10 % 11/21/20 08:12 Glucose 107 mg/dL (75-100) H 11/21/20 08:12 POC Glucose 104 mg/dL (70-105) 11/21/20 05:18 Lactic Acid 1.90 mmol/L (0.7-2.0) 11/18/20 17:02 Calcium 8.0 mg/dL (8.4-10.2) L 11/21/20 08:12 Magnesium 2.10 mg/dL (1.7-2.3) 11/18/20 07:09 Total Creatine Kinase 998 units/L (55-170) H 11/20/20 07:52 TSH 1.730 mlU/mL (0.270-4.200) 11/18/20 07:09 Free T4 1.19 ng/dL (0.76-1.46) 11/18/20 07:09 Arterial Blood Glucose 126 mg/dL (65-95) H 11/21/20 04:08 Arterial Blood Ionized Calcium 4.6 mg/dL (4.6-5.3) 11/21/20 04:08 Urine Color Straw (Yellow) 11/18/20 10:50 Urine Turbidity Clear (Clear) 11/18/20 10:50 Urine pH 6.0 (5.0-7.0) 11/18/20 10:50 Ur Specific [place] 1.009 (1.003-1.030) 11/18/20 10:50 Urine Protein <15 mg/dl mg/dL (Negative) 11/18/20 10:50 Urine Glucose (UA) Neg mg/dL (Negative) 11/18/20 10:50 Urine Ketones 20 mg/dL (Negative) 11/18/20 10:50 Urine Blood Sm (Negative) 11/18/20 10:50 Urine Nitrite Neg (Negative) 11/18/20 10:50 Urine Bilirubin Neg (Negative) 11/18/20 10:50 Urine Urobilinogen < 2.0 mg/dL (<2.0) 11/18/20 10:50 Ur Leukocyte Esterase Neg (Negative) 11/18/20 10:50 Urine WBC (Auto) 1.0 /HPF (0.0-6.0) 11/18/20 10:50 Urine RBC (Auto) 1.0 /HPF (0.0-6.0) 11/18/20 10:50 Nasal Screen MRSA (PCR) Negative (Negative) 11/19/20 13:31 Vancomycin Trough < 4.0 ug/mL (5.0-20.0) L 11/21/20 01:12 Coronavirus (PCR) Negative (Negative) 11/19/20 Unknown Microbiology: Microbiology 11/18/20 12:37 Peripheral/Venous Blood Culture - Preliminary NO GROWTH AFTER 48 HOURS 11/18/20 12:37 Peripheral/Venous Blood Culture - Preliminary NO GROWTH AFTER 48 HOURS 11/18/20 18:56 Tracheal Aspirate Sputum Culture - Preliminary [place]/IV: Voiding Method Indwelling Catheter Active Medications - Current Medications Current Medications: Generic Name Dose Route Start Last Admin Trade Name Freq PRN Reason Stop Dose Admin Acetaminophen 650 mg 11/18/20 12:15 Acetaminophen 325 Mg Tab PO Q4H PRN Pain MILD(1-3)/Fever >100.5/KURTZ Lipase/Protease/Amylase 1 each 11/19/20 12:55 Lipase 10,500/Protease 25,000/Amylase 43,750 (Units) Dr Joya FEEDTUBE PRN PRN For Clogged Feeding Tube Dextrose 50 ml 11/19/20 12:58 Dextrose 50% In Water (25gm) 50 Ml Syringe IV Q30MIN PRN Hypoglycemia Protocol Fentanyl 50 mcg 11/20/20 07:49 11/20/20 09:47 Fentanyl 100 Mcg/2 Ml Inj IV 50 mcg Q4HR PRN Administration Pain , Severe (7-10) Heparin Sodium (Porcine) 5,000 unit 11/18/20 22:00 11/20/20 21:10 Heparin 5,000 Unit/1 Ml Vial SUB-Q 5,000 unit Q12HR PIERRE Administration Hydrophilic Ointment 1 applic 11/18/20 17:08 Lip Therapy Vaseline TP Q2HR PRN Dry Lips Vancomycin HCl 1 gm in 250 mls @ 166.667 mls/hr 11/18/20 13:00 11/21/20 02:32 Vancomycin/Ns 1 Gm/250 Ml IV 166.667 mls/hr Q12H PIERRE Administration Protocol Levetiracetam 1,500 mg/ 115 mls @ 400 mls/hr 11/18/20 17:00 11/21/20 05:56 Dextrose IV 400 mls/hr Q12H PIERRE Administration Dextrose/Sodium Chloride 1,000 mls @ 75 mls/hr 11/18/20 13:00 11/21/20 05:55 D5ns IV 75 mls/hr DIRECT PIERRE Administration Propofol 1,000 mg in 100 mls @ 2.565 mls/hr 11/18/20 18:00 11/21/20 05:55 Diprivan 10 Mg/Ml IV 30 mcg/kg/min TITR PIERRE 15.39 mls/hr Administration Protocol 5 MCG/KG/MIN Cefepime HCl 2 gm in 100 mls @ 200 mls/hr 11/19/20 13:00 11/21/20 05:55 Cefepime/Ns 2 Gm/100 Ml IV 11/23/20 05:29 200 mls/hr Q8H PIERRE Administration Protocol Lacosamide 150 mg/ Sodium 115 mls @ 100 mls/hr 11/21/20 10:00 Chloride IV Q12H PIERRE Insulin Human Lispro 0 unit 11/19/20 18:00 11/21/20 06:15 Insulin Lispro 100 Unit/Ml SUB-Q Not Given Q6HR PIERRE Protocol Lorazepam 2 mg 11/18/20 12:38 Lorazepam 2 Mg/Ml Vial IV Q2MIN PRN Seizures Multi-Ingred Cream/Lotion/Oil/Oint 1 applic 11/18/20 17:08 Mineral Oil/Petrolatum, White Ophth Oint 3.5 Gm OU Q4HR PRN Dry Eye(s) Naloxone HCl 0.1 mg 11/18/20 12:15 Naloxone 0.4 Mg/1 Ml Inj IV Q2MIN PRN Res Rate </= 8 or 02 SAT < 92% Ondansetron HCl 4 mg 11/18/20 12:15 Ondansetron 4 Mg/2 Ml Inj IV Q8H PRN Nausea And Vomiting Simple Syrup 15 ml 11/19/20 12:55 Simple Syrup 15 Ml FEEDTUBE PRN PRN Hypoglycemia Simple Syrup 30 ml 11/19/20 12:55 Simple Syrup 15 Ml FEEDTUBE PRN PRN Hypoglycemia Sodium Bicarbonate 325 mg 11/19/20 12:55 Sodium Bicarbonate 325 Mg Tab FEEDTUBE PRN PRN For Clogged Feeding Tube Sodium Chloride 10 ml 11/18/20 22:00 11/20/20 21:10 Sodium Chloride 0.9% 10 Ml Flush Syringe IV 10 ml BID PIERRE Administration Sodium Chloride 10 ml 11/18/20 12:15 Sodium Chloride 0.9% 10 Ml Flush Syringe IV PRN PRN LINE FLUSH Nutrition/Malnutrition Assess - Dietary Evaluation Nutrition/Malnutrition Findings: Nutrition Notes Start: 11/19/20 09:46 Freq: Status: Active Protocol: Document 11/20/20 09:17 LP (Rec: 11/20/20 09:20 LP [id number]) Nutrition Notes Need for Assessment generated from: MD Order Initial or Follow up Brief Note Subjective/Other Information Consult for TF. Pt started on TF yesterday, MD followed note recs. Nutrition Intervention Nutrition Support: Osmolite 1.5 at 60ml/hr Flush 180ml q4h Kcal 2,160 Protein (gm) 90 Fluid (mL) 1,097 Follow-Up By: 11/21/20 Additional Comments Follow for TF start/tolerance
[2020-11-21] MEDS ORDERED: LACOSAMIDE 200 MG/20 ML IV SCH (10:00)
--- NOTE | 2020-11-21 11:34 | Progress Note ---
Assessment and Plan 35 y/o male with MS admitted with status epilepticus, finally aborted however patient with acute respiratory failure requiring mechanical ventilation. 11/21/20: ok with stopping abx therapy. follow up speech recs, for now, will need DH vs NG for feeds and meds. Ok with transfer to floor. 11/20/20: Continue cefempime and vanc for now. Will continue intubation through today and will plan to extubate tomorrow. Follow up neuro recs, guessing they will see him on Saturday. continue all other supportive measures. 1. Change Zosyn to Cefepime. Does look like some inflammatory process in the lung with consolidation in the lower lobe on the right. Could be aspiration. Agree with broad spec but tailor based on culture results. 2. Continue mechanincal vent, minimal settings, not ready for extubation today 3. Remains in sinus tach and tachypnic. Could be pain, not febrile any more. Will give a fent bolus. Will also give a liter bolus of LR. Although patient does not appear dry based on lab results. Fever control. Stopped PRN metoprolol as this is sinus tach, fear patient would bottom out if therapy in the form of b eta chichi. 4. Follow up neurology recs. Agree with BID brandan, father to bring in meds for reconciliation. 5. Guarded prognosis. CCT 31 minutes. Subjective Date of service: 11/21/20 Interval history: Extubated this am prior to my arrival but at my request. Josiah coffman doing well but did not pass his speech swallow eval. Objective Vital Signs - 12hr 11/20/20 11/20/20 11/20/20 23:30 23:40 23:44 Temperature Pulse Rate 92 H 93 H 93 H Pulse Rate [ From Monitor] Respiratory 16 16 16 Rate Blood Pressure 119/74 119/74 119/74 O2 Sat by Pulse 100 100 100 Oximetry 11/20/20 11/20/20 11/21/20 23:50 23:58 00:00 Temperature Pulse Rate 88 88 104 H Pulse Rate [ 86 From Monitor] Respiratory 16 16 Rate Blood Pressure 119/74 119/74 117/81 O2 Sat by Pulse 100 100 98 Oximetry 11/21/20 11/21/20 11/21/20 00:10 00:20 00:30 Temperature Pulse Rate 88 91 H 88 Pulse Rate [ From Monitor] Respiratory 16 16 16 Rate Blood Pressure 117/81 117/81 117/81 O2 Sat by Pulse 99 98 98 Oximetry 11/21/20 11/21/20 11/21/20 00:40 00:50 01:00 Temperature Pulse Rate 92 H 88 87 Pulse Rate [ From Monitor] Respiratory 16 16 16 Rate Blood Pressure 117/81 117/81 108/71 O2 Sat by Pulse 97 98 95 Oximetry 11/21/20 11/21/20 11/21/20 01:10 01:20 01:30 Temperature Pulse Rate 83 116 H 105 H Pulse Rate [ From Monitor] Respiratory 16 19 21 Rate Blood Pressure 108/71 108/71 108/71 O2 Sat by Pulse 99 98 100 Oximetry 11/21/20 11/21/20 11/21/20 01:40 01:50 02:00 Temperature Pulse Rate 106 H 107 H 109 H Pulse Rate [ From Monitor] Respiratory 23 19 23 Rate Blood Pressure 108/71 108/71 108/71 O2 Sat by Pulse 100 100 99 Oximetry 11/21/20 11/21/20 11/21/20 02:10 02:20 02:30 Temperature Pulse Rate 105 H 103 H 106 H Pulse Rate [ From Monitor] Respiratory 20 18 24 Rate Blood Pressure 129/88 129/88 129/88 O2 Sat by Pulse 98 100 100 Oximetry 11/21/20 11/21/20 11/21/20 02:40 02:50 03:00 Temperature Pulse Rate 106 H 101 H 101 H Pulse Rate [ From Monitor] Respiratory 22 16 17 Rate Blood Pressure 129/88 129/88 130/95 O2 Sat by Pulse 100 98 100 Oximetry 11/21/20 11/21/20 11/21/20 03:10 03:20 03:26 Temperature 98.8 F Pulse Rate 99 H 105 H Pulse Rate [ From Monitor] Respiratory 16 16 Rate Blood Pressure 130/95 130/95 O2 Sat by Pulse 100 100 Oximetry 11/21/20 11/21/20 11/21/20 03:30 03:40 03:50 Temperature Pulse Rate 100 H 94 H 105 H Pulse Rate [ From Monitor] Respiratory 16 16 16 Rate Blood Pressure 130/95 130/95 130/95 O2 Sat by Pulse 100 100 100 Oximetry 11/21/20 11/21/20 11/21/20 04:00 04:10 04:14 Temperature Pulse Rate 101 H 96 H 99 H Pulse Rate [ 101 H From Monitor] Respiratory 13 17 Rate Blood Pressure 134/86 130/95 134/86 O2 Sat by Pulse 98 100 100 Oximetry 11/21/20 11/21/20 11/21/20 04:20 04:30 04:40 Temperature Pulse Rate 98 H 95 H 90 Pulse Rate [ From Monitor] Respiratory 16 16 16 Rate Blood Pressure 130/95 130/95 130/95 O2 Sat by Pulse 100 100 100 Oximetry 11/21/20 11/21/20 11/21/20 04:50 05:00 05:10 Temperature Pulse Rate 95 H 92 H 103 H Pulse Rate [ From Monitor] Respiratory 14 19 16 Rate Blood Pressure 130/95 130/88 130/88 O2 Sat by Pulse 100 99 100 Oximetry 11/21/20 11/21/20 11/21/20 05:20 05:30 05:40 Temperature Pulse Rate 99 H 99 H 103 H Pulse Rate [ From Monitor] Respiratory 17 17 20 Rate Blood Pressure 130/88 130/88 130/88 O2 Sat by Pulse 98 100 100 Oximetry 11/21/20 11/21/20 11/21/20 05:50 06:00 06:10 Temperature Pulse Rate 99 H 80 90 Pulse Rate [ From Monitor] Respiratory 20 16 16 Rate Blood Pressure 130/88 140/105 140/105 O2 Sat by Pulse 100 98 100 Oximetry 11/21/20 11/21/20 11/21/20 06:21 06:30 06:40 Temperature Pulse Rate 94 H 100 H 100 H Pulse Rate [ From Monitor] Respiratory 17 22 22 Rate Blood Pressure 140/105 140/105 140/105 O2 Sat by Pulse 100 95 96 Oximetry 11/21/20 11/21/20 11/21/20 06:50 07:00 07:10 Temperature Pulse Rate 93 H 92 H 99 H Pulse Rate [ From Monitor] Respiratory 17 16 16 Rate Blood Pressure 140/105 140/105 149/92 O2 Sat by Pulse 96 97 98 Oximetry 11/21/20 11/21/20 11/21/20 07:20 07:30 07:40 Temperature Pulse Rate 105 H 97 H 98 H Pulse Rate [ From Monitor] Respiratory 17 19 21 Rate Blood Pressure 149/92 149/92 149/92 O2 Sat by Pulse 98 100 99 Oximetry 11/21/20 11/21/20 11/21/20 07:50 08:00 08:10 Temperature 99.7 F H Pulse Rate 98 H 104 H 103 H Pulse Rate [ 97 H From Monitor] Respiratory 20 17 18 Rate Blood Pressure 149/92 149/92 140/94 O2 Sat by Pulse 98 98 99 Oximetry 11/21/20 11/21/20 11/21/20 08:20 08:30 08:40 Temperature Pulse Rate 96 H 98 H 95 H Pulse Rate [ From Monitor] Respiratory 19 20 21 Rate Blood Pressure 140/94 140/94 140/94 O2 Sat by Pulse 97 88 100 Oximetry 11/21/20 11/21/20 11/21/20 08:50 09:00 09:10 Temperature Pulse Rate 109 H 96 H 94 H Pulse Rate [ From Monitor] Respiratory 24 21 20 Rate Blood Pressure 140/94 140/94 160/94 O2 Sat by Pulse 100 100 100 Oximetry 11/21/20 11/21/20 11/21/20 09:21 09:31 09:41 Temperature Pulse Rate 94 H 110 H 98 H Pulse Rate [ From Monitor] Respiratory 17 18 18 Rate Blood Pressure 140/94 160/94 160/94 O2 Sat by Pulse 100 100 100 Oximetry 11/21/20 11/21/20 11/21/20 09:51 10:00 10:17 Temperature Pulse Rate 101 H 109 H Pulse Rate [ From Monitor] Respiratory 20 16 Rate Blood Pressure 160/94 130/90 O2 Sat by Pulse 98 97 100 Oximetry Gastrointestinal: normoactive bowel sounds Integumentary: normal CBC and BMP: 11/20/20 07:52 11/21/20 08:12 ABG, PT/INR, D-dimer: ABG ABG pH 7.383 (7.320-7.450) 11/21/20 04:08 POC ABG pCO2 40.6 mmHg (32.0-48.0) 11/21/20 04:08 ABG pCO2 34.3 mm Hg 11/18/20 18:52 POC ABG pO2 130.4 mmHg (83-108) H 11/21/20 04:08 ABG pO2 71.1 mm Hg (80.0-90.0) L 11/18/20 18:52 POC ABG HCO3 23.6 11/21/20 04:08 ABG O2 Saturation 98.6 (0-100) 11/21/20 04:08 PT/INR, D-dimer D-Dimer 1161.92 ng/mlDDU (0-234) H 11/18/20 17:02 Abnormal lab findings: Abnormal Labs 11/18/20 11/18/20 11/18/20 07:05 07:09 07:09 WBC 12.0 H RBC 5.04 H Hgb Hct Plt Count Lymph % (Auto) 2.2 L [place] % (Auto) 8.5 H Lymph # (Auto) 0.3 L [place] # (Auto) 1.0 H Seg Neutrophils % 89.0 H Seg Neutrophils # 10.7 H D-Dimer ABG pH POC ABG pCO2 POC ABG pO2 ABG pO2 ABG Base Excess ABG Oxyhemoglobin ABG Sodium ABG Chloride ABG Glucose Oxyhemoglobin Potassium Chloride BUN Creatinine Glucose 66 L POC Glucose Calcium 8.3 L Total Creatine Kinase 200 H Arterial Blood Glucose Arterial Blood Ionized Calcium Vancomycin Trough 11/18/20 11/18/20 11/18/20 17:02 17:02 18:52 WBC RBC 5.41 H Hgb 15.4 H Hct 45.7 H Plt Count 120 L Lymph % (Auto) 4.0 L [place] % (Auto) Lymph # (Auto) 0.4 L [place] # (Auto) Seg Neutrophils % 89.0 H Seg Neutrophils # 9.4 H D-Dimer 1161.92 H ABG pH POC ABG pCO2 POC ABG pO2 ABG pO2 71.1 L ABG Base Excess -3.8 L ABG Oxyhemoglobin ABG Sodium ABG Chloride ABG Glucose Oxyhemoglobin 93.7 L Potassium Chloride BUN Creatinine Glucose POC Glucose Calcium Total Creatine Kinase Arterial Blood Glucose Arterial Blood Ionized Calcium Vancomycin Trough 11/18/20 11/19/20 11/19/20 19:28 03:57 05:16 WBC RBC Hgb Hct Plt Count Lymph % (Auto) [place] % (Auto) Lymph # (Auto) [place] # (Auto) Seg Neutrophils % Seg Neutrophils # D-Dimer ABG pH 7.482 H POC ABG pCO2 26.7 L POC ABG pO2 142.7 H ABG pO2 ABG Base Excess ABG Oxyhemoglobin 98.5 H ABG Sodium 135.9 L ABG Chloride 108.0 H ABG Glucose 119 H Oxyhemoglobin Potassium Chloride BUN Creatinine Glucose POC Glucose 118 H 123 H Calcium Total Creatine Kinase Arterial Blood Glucose 119 H Arterial Blood Ionized Calcium 4.5 L Vancomycin Trough 11/19/20 11/19/20 11/19/20 06:47 09:36 12:20 WBC RBC Hgb Hct Plt Count Lymph % (Auto) [place] % (Auto) Lymph # (Auto) [place] # (Auto) Seg Neutrophils % Seg Neutrophils # D-Dimer ABG pH POC ABG pCO2 POC ABG pO2 ABG pO2 ABG Base Excess ABG Oxyhemoglobin ABG Sodium ABG Chloride ABG Glucose Oxyhemoglobin Potassium 3.5 L Chloride BUN 6 L Creatinine 0.6 L Glucose 119 H POC Glucose 113 H 111 H Calcium 8.0 L Total Creatine Kinase 2179 H Arterial Blood Glucose Arterial Blood Ionized Calcium Vancomycin Trough 11/19/20 11/20/20 11/20/20 21:36 03:13 05:24 WBC RBC Hgb Hct Plt Count Lymph % (Auto) [place] % (Auto) Lymph # (Auto) [place] # (Auto) Seg Neutrophils % Seg Neutrophils # D-Dimer ABG pH POC ABG pCO2 POC ABG pO2 127.4 H 109.0 H ABG pO2 ABG Base Excess ABG Oxyhemoglobin ABG Sodium ABG Chloride 108.0 H 108.0 H ABG Glucose 133 H 108 H Oxyhemoglobin Potassium Chloride BUN Creatinine Glucose POC Glucose 118 H Calcium Total Creatine Kinase Arterial Blood Glucose 133 H 108 H Arterial Blood Ionized Calcium Vancomycin Trough 11/20/20 11/20/20 11/20/20 07:52 07:52 07:52 WBC RBC Hgb Hct Plt Count 103 L Lymph % (Auto) [place] % (Auto) Lymph # (Auto) [place] # (Auto) Seg Neutrophils % Seg Neutrophils # D-Dimer ABG pH POC ABG pCO2 POC ABG pO2 ABG pO2 ABG Base Excess ABG Oxyhemoglobin ABG Sodium ABG Chloride ABG Glucose Oxyhemoglobin Potassium 3.3 L Chloride 107.2 H BUN 5 L Creatinine 0.5 L Glucose 134 H POC Glucose Calcium 7.7 L Total Creatine Kinase 998 H Arterial Blood Glucose Arterial Blood Ionized Calcium Vancomycin Trough 11/20/20 11/20/20 11/21/20 17:38 23:13 01:12 WBC RBC Hgb Hct Plt Count Lymph % (Auto) [place] % (Auto) Lymph # (Auto) [place] # (Auto) Seg Neutrophils % Seg Neutrophils # D-Dimer ABG pH POC ABG pCO2 POC ABG pO2 ABG pO2 ABG Base Excess ABG Oxyhemoglobin ABG Sodium ABG Chloride ABG Glucose Oxyhemoglobin Potassium Chloride BUN Creatinine Glucose POC Glucose 111 H 112 H Calcium Total Creatine Kinase Arterial Blood Glucose Arterial Blood Ionized Calcium Vancomycin Trough < 4.0 L 11/21/20 11/21/20 04:08 08:12 WBC RBC Hgb Hct Plt Count Lymph % (Auto) [place] % (Auto) Lymph # (Auto) [place] # (Auto) Seg Neutrophils % Seg Neutrophils # D-Dimer ABG pH POC ABG pCO2 POC ABG pO2 130.4 H ABG pO2 ABG Base Excess ABG Oxyhemoglobin ABG Sodium ABG Chloride 109.0 H ABG Glucose 126 H Oxyhemoglobin Potassium Chloride 108.7 H BUN 4 L Creatinine 0.4 L Glucose 107 H POC Glucose Calcium 8.0 L Total Creatine Kinase Arterial Blood Glucose 126 H Arterial Blood Ionized Calcium Vancomycin Trough
--- NOTE | 2020-11-21 12:30 | XRay Report ---
XR abdomen 1V ap INDICATION: NGT placement verification. COMPARISON: 11/19/2020 FINDINGS: The tip of the NG tube projects over the body of the stomach. Signer Name: Eyad Burnham MD Signed: 11/21/2020 12:26 PM Workstation Name: [id number]
[2020-11-22] MEDS: INSULIN LISPRO 100 UNIT/ML SUB-Q SCH ×5 (04:15→19:01)
[2020-11-22] MEDS: levETIRAcetam 1,500 MG in DEXTROSE 5% IN WATER 100 ML IV SCH (04:58)
--- NOTE | 2020-11-22 09:13 | Progress Note ---
Assessment and Plan 35 y/o male with MS admitted with status epilepticus, finally aborted however patient with acute respiratory failure requiring mechanical ventilation. 11/22/20: stable pulm status, will sign off. Call if questions or if further help is needed. 11/21/20: ok with stopping abx therapy. follow up speech recs, for now, will need DH vs NG for feeds and meds. Ok with transfer to floor. 11/20/20: Continue cefempime and vanc for now. Will continue intubation through today and will plan to extubate tomorrow. Follow up neuro recs, guessing they will see him on Saturday. continue all other supportive measures. 1. Change Zosyn to Cefepime. Does look like some inflammatory process in the lung with consolidation in the lower lobe on the right. Could be aspiration. Agree with broad spec but tailor based on culture results. 2. Continue mechanincal vent, minimal settings, not ready for extubation today 3. Remains in sinus tach and tachypnic. Could be pain, not febrile any more. Will give a fent bolus. Will also give a liter bolus of LR. Although patient does not appear dry based on lab results. Fever control. Stopped PRN metoprolol as this is sinus tach, fear patient would bottom out if therapy in the form of beta chichi. 4. Follow up neurology recs. Agree with ESTEBAN brandan, father to bring in meds for reconciliation. 5. Guarded prognosis. CCT 31 minutes. Subjective Date of service: 11/22/20 Interval history: Successful transfer to the floor. Weaned down to room air with good sats. No current pulm issues. Objective Vital Signs - 12hr 11/22/20 11/22/20 11/22/20 00:00 00:04 04:00 Temperature 99.4 F Pulse Rate 91 H 99 H 127 H Pulse Rate [ 102 H From Monitor] Respiratory 18 20 Rate Blood Pressure 111/69 Blood Pressure [Right] O2 Sat by Pulse 100 99 Oximetry 11/22/20 11/22/20 11/22/20 04:25 08:06 08:24 Temperature 99.0 F Pulse Rate 100 H 84 Pulse Rate [ From Monitor] Respiratory 18 18 Rate Blood Pressure 116/74 Blood Pressure 118/72 [Right] O2 Sat by Pulse 99 100 99 Oximetry Gastrointestinal: normoactive bowel sounds Integumentary: normal CBC and BMP: 05/23/21 07:52 11/21/20 08:12 ABG, PT/INR, D-dimer: ABG ABG pH 7.383 (7.320-7.450) 11/21/20 04:08 POC ABG pCO2 40.6 mmHg (32.0-48.0) 11/21/20 04:08 ABG pCO2 34.3 mm Hg 11/18/20 18:52 POC ABG pO2 130.4 mmHg (83-108) H 11/21/20 04:08 ABG pO2 71.1 mm Hg (80.0-90.0) L 11/18/20 18:52 POC ABG HCO3 23.6 11/21/20 04:08 ABG O2 Saturation 98.6 (0-100) 11/21/20 04:08 PT/INR, D-dimer D-Dimer 1161.92 ng/mlDDU (0-234) H 11/18/20 17:02 Abnormal lab findings: Abnormal Labs 11/18/20 11/18/20 11/18/20 07:05 07:09 07:09 WBC 12.0 H RBC 5.04 H Hgb Hct Plt Count Lymph % (Auto) 2.2 L [place] % (Auto) 8.5 H Lymph # (Auto) 0.3 L [place] # (Auto) 1.0 H Seg Neutrophils % 89.0 H Seg Neutrophils # 10.7 H D-Dimer ABG pH POC ABG pCO2 POC ABG pO2 ABG pO2 ABG Base Excess ABG Oxyhemoglobin ABG Sodium ABG Chloride ABG Glucose Oxyhemoglobin Potassium Chloride BUN Creatinine Glucose 66 L POC Glucose Calcium 8.3 L Total Creatine Kinase 200 H Arterial Blood Glucose Arterial Blood Ionized Calcium Vancomycin Trough 11/18/20 11/18/20 11/18/20 17:02 17:02 18:52 WBC RBC 5.41 H Hgb 15.4 H Hct 45.7 H Plt Count 120 L Lymph % (Auto) 4.0 L [place] % (Auto) Lymph # (Auto) 0.4 L [place] # (Auto) Seg Neutrophils % 89.0 H Seg Neutrophils # 9.4 H D-Dimer 1161.92 H ABG pH POC ABG pCO2 POC ABG pO2 ABG pO2 71.1 L ABG Base Excess -3.8 L ABG Oxyhemoglobin ABG Sodium ABG Chloride ABG Glucose Oxyhemoglobin 93.7 L Potassium Chloride BUN Creatinine Glucose POC Glucose Calcium Total Creatine Kinase Arterial Blood Glucose Arterial Blood Ionized Calcium Vancomycin Trough 11/18/20 11/19/20 11/19/20 19:28 03:57 05:16 WBC RBC Hgb Hct Plt Count Lymph % (Auto) [place] % (Auto) Lymph # (Auto) [place] # (Auto) Seg Neutrophils % Seg Neutrophils # D-Dimer ABG pH 7.482 H POC ABG pCO2 26.7 L POC ABG pO2 142.7 H ABG pO2 ABG Base Excess ABG Oxyhemoglobin 98.5 H ABG Sodium 135.9 L ABG Chloride 108.0 H ABG Glucose 119 H Oxyhemoglobin Potassium Chloride BUN Creatinine Glucose POC Glucose 118 H 123 H Calcium Total Creatine Kinase Arterial Blood Glucose 119 H Arterial Blood Ionized Calcium 4.5 L Vancomycin Trough 11/19/20 11/19/20 11/19/20 06:47 09:36 12:20 WBC RBC Hgb Hct Plt Count Lymph % (Auto) [place] % (Auto) Lymph # (Auto) [place] # (Auto) Seg Neutrophils % Seg Neutrophils # D-Dimer ABG pH POC ABG pCO2 POC ABG pO2 ABG pO2 ABG Base Excess ABG Oxyhemoglobin ABG Sodium ABG Chloride ABG Glucose Oxyhemoglobin Potassium 3.5 L Chloride BUN 6 L Creatinine 0.6 L Glucose 119 H POC Glucose 113 H 111 H Calcium 8.0 L Total Creatine Kinase 2179 H Arterial Blood Glucose Arterial Blood Ionized Calcium Vancomycin Trough 11/19/20 11/20/20 11/20/20 21:36 03:13 05:24 WBC RBC Hgb Hct Plt Count Lymph % (Auto) [place] % (Auto) Lymph # (Auto) [place] # (Auto) Seg Neutrophils % Seg Neutrophils # D-Dimer ABG pH POC ABG pCO2 POC ABG pO2 127.4 H 109.0 H ABG pO2 ABG Base Excess ABG Oxyhemoglobin ABG Sodium ABG Chloride 108.0 H 108.0 H ABG Glucose 133 H 108 H Oxyhemoglobin Potassium Chloride BUN Creatinine Glucose POC Glucose 118 H Calcium Total Creatine Kinase Arterial Blood Glucose 133 H 108 H Arterial Blood Ionized Calcium Vancomycin Trough 11/20/20 11/20/20 11/20/20 07:52 07:52 07:52 WBC RBC Hgb Hct Plt Count 103 L Lymph % (Auto) [place] % (Auto) Lymph # (Auto) [place] # (Auto) Seg Neutrophils % Seg Neutrophils # D-Dimer ABG pH POC ABG pCO2 POC ABG pO2 ABG pO2 ABG Base Excess ABG Oxyhemoglobin ABG Sodium ABG Chloride ABG Glucose Oxyhemoglobin Potassium 3.3 L Chloride 107.2 H BUN 5 L Creatinine 0.5 L Glucose 134 H POC Glucose Calcium 7.7 L Total Creatine Kinase 998 H Arterial Blood Glucose Arterial Blood Ionized Calcium Vancomycin Trough 11/20/20 11/20/20 11/21/20 17:38 23:13 01:12 WBC RBC Hgb Hct Plt Count Lymph % (Auto) [place] % (Auto) Lymph # (Auto) [place] # (Auto) Seg Neutrophils % Seg Neutrophils # D-Dimer ABG pH POC ABG pCO2 POC ABG pO2 ABG pO2 ABG Base Excess ABG Oxyhemoglobin ABG Sodium ABG Chloride ABG Glucose Oxyhemoglobin Potassium Chloride BUN Creatinine Glucose POC Glucose 111 H 112 H Calcium Total Creatine Kinase Arterial Blood Glucose Arterial Blood Ionized Calcium Vancomycin Trough < 4.0 L 11/21/20 11/21/20 11/21/20 04:08 08:12 11:51 WBC RBC Hgb Hct Plt Count Lymph % (Auto) [place] % (Auto) Lymph # (Auto) [place] # (Auto) Seg Neutrophils % Seg Neutrophils # D-Dimer ABG pH POC ABG pCO2 POC ABG pO2 130.4 H ABG pO2 ABG Base Excess ABG Oxyhemoglobin ABG Sodium ABG Chloride 109.0 H ABG Glucose 126 H Oxyhemoglobin Potassium Chloride 108.7 H BUN 4 L Creatinine 0.4 L Glucose 107 H POC Glucose 111 H Calcium 8.0 L Total Creatine Kinase Arterial Blood Glucose 126 H Arterial Blood Ionized Calcium Vancomycin Trough
--- NOTE | 2020-11-22 09:51 | Discharge Summary ---
Providers - Providers Date of Admission: 11/18/20 12:15 Attending physician: KIKO SPENCER MD 11/18/20 12:28 Consult to Physician [CONS] Routine Comment: Consulting Provider: CLAYTON SHEPPARD Physician Instructions: Reason For Exam: status epilepticus 11/18/20 12:53 Consult to Physician [CONS] Routine Comment: Consulting Provider: ARNULFO PINA Physician Instructions: Reason For Exam: status epilepticus 11/18/20 17:08 Consult to Dietitian/Nutrition [CONS] Routine Physician Instructions: Reason For Exam: Reason for Consult: Write/Manage Tube Feeding 11/19/20 12:55 Consult to Dietitian/Nutrition [CONS] Routine Physician Instructions: Assess nutrtn needs, initiate, modify, manage TF Reason For Exam: Reason for Consult: Write/Manage Tube Feeding Reason for Consult: Write/Manage Tube Feeding 11/21/20 11:03 Speech Therapy Evaluation and Treat [CONS] Routine Reason For Exam: post extubation swallow eval Primary care physician: JEWEL BEARING TURNER Hospitalization Reason for admission: Status epilepticus Condition: Fair Hospital course: This is a 35-year-old male with multiple sclerosis and epilepsy who presents to the emergency department on 11/18 with acute seizures (witnessed at home) and was given 2 mg of Ativan and 2 mg of diazepam until cessation after 30 minutes. In the emergency department patient was found to be tachycardic with heart rate of 146, febrile to 102 and was given IV Keppra. Patient was admitted to the hospitalist service with consults to [facility] for potential sepsis, COVID-19 PUI and seizures. Per family patient has a history of MS diagnosed at age of 16 not on any medications. Had an outpatient scheduled neuro evaluation -11/18 CXR shows patchy bilateral pulmonary infiltrates with mild improvement on the left but not worsened on the right, gaseous distention of the stomach -11/18 CTA chest shows bilateral bronchopneumonia (multifocal patchy airspace parenchymal disease left upper and both lower lobes most pronounced within the right lower lobe) -11/18 CT head shows no acute intracranial abnormality, mild diffuse cortical volume loss which is stable but appears advanced for age. No acute changes appreciated since 09/05/2019 exam -Trend CBC and BMP 11/19: Patient was intubated yesterday evening for tachycardia and respiratory distress. Ddimer was elevated and he obtained a CTA chest which was read as no PE but bronchopnemonia. His abx will be changed to cefepime from zosyn and continue vancomycin. Ntr consult for TF. Hypokalemia repleted, restarted home trileptal. Given LR bolus and fentanyl bolus in hopes to help with tachycardia. 11/20: Overnight patient had reported hunt secretions from [facility] but this morning when suctioned by RT and RN there were no hunt secretions. CXR which showed interval improvement in bilateral opacities. [facility] plans to extubate tomorrow, RN to restart TF now. Will monitor and drop IVF rate if tolerating. We will replete potassium. EEG ordered for today. 11/21: Pulmonary input noted patient continues on the ventilator. Discussed with neurologist at the bedside today plan for EEG and MRI especially considering left-sided weakness. He is also readjusted the patient's seizure meds to the home dose stopping Trileptal and starting back on Vimpat as patient takes at home. Senior Sustainability Advisor plans to reevaluate mechanical ventilator for possible extubation today. Leukocytosis improved if no culture growth we will discuss with explosive man about possible discontinuing antibiotics and monitoring off antibiotics. 11/22: Patient clinically stable this morning post extubation no new complaints EEG was consistent with encephalopathic process possible postictal otherwise no new issues noted patient is more awake and alert this morning. No seizure events was noted overnight. We are awaiting MRI and if negative per neurologist patient can be discharged. We will continue management outpatient follow-up with primary care physician. Covid test was negative Vimpat was adjusted by neurology to 150 mg Status epilepticus Acute respiratory failure Fever of unknown origin Sepsis, POA (possible aspiration pneumonia) Hypokalemia History of multiple sclerosis Disposition: [id number] HOME UNDER HOME [facility] Final Discharge Diagnosis (Prints w/discharge instructions): Status epilepticus Time spent for discharge: 35-minute Core Measure Documentation - Palliative Care Palliative Care/ Comfort Measures: Not Applicable - Core Measures Any of the following diagnoses?: none Exam - Physical Exam Narrative exam: General appearance: Present: no acute distress, awake - EENT Eyes: Present: PERRL, EOM intact no nystagmus ENT: clear oral mucosa - Neck Neck: Present: normal ROM - Respiratory Respiratory effort: normal Respiratory: bilateral: CTA - Cardiovascular Rhythm: regular Heart Sounds: Present: S1 & S2. Absent: systolic murmur, diastolic murmur - Extremities Extremities: no ischemia, pulses intact, pulses symmetrical, No edema, normal temperature, normal color Peripheral Pulses: within normal limits - Abdominal General gastrointestinal: soft, non-tender, non-distended, normal bowel sounds - Integumentary Integumentary: Present: clear, warm, dry - Psychiatric Psychiatric: cooperative - Neurologic Neurologic: moves all extremities, (follows commands, PERRL, (+) track/focus) - Allied Health Allied health notes reviewed: nursing, RT, social work - Constitutional Vitals: Temp Pulse Resp BP Pulse Ox 99.0 F 84 18 116/74 99 11/22/20 04:25 11/22/20 08:24 11/22/20 08:24 11/22/20 08:24 11/22/20 08:24 Plan Activity: advance as tolerated, up only with assistance, fall precautions Diet: advance as tolerated Additional Instructions: Continue follow-up with primary neurologist Follow up with: PRIMARY CARE, [Primary Care Provider] - 3-5 Days Prescriptions: levETIRAcetam [Keppra] 1,500 mg PO BID #900 ml Lacosamide [Vimpat] 150 mg PO BID #900 ml
[2020-11-22] MEDS: LACOSAMIDE 150 MG in SODIUM CHLORIDE 0.9% 100 ML IV SCH (09:52)
[2020-11-22] MEDS: HEPARIN 5,000 UNIT/1 ML VIAL SUB-Q SCH ×2 (09:53→21:20)
--- NOTE | 2020-11-22 09:59 | Electrocardiograph Report ---
[facility] Test Date: 2020-11-18 Test Time: 20:04:39 Pat Name: BENNIE CUEVAS Department: Room: A454 1 Gender: M Dental Technology Advisor: MARCELO : 1985 Requested By: IVIS GOODE Order Number: [id number] Reading MD: Ciaran Atkins Measurements Intervals Win[place] Rate: 132 P: 68 MS: 133 QRS: 63 QRSD: 76 T: 58 QT: 281 QTc: 416 Interpretive Statements Sinus tachycardia Compared to ECG 11/18/2020 06:25:50 No significant changes Electronically Signed On 11-22-2020 9:59:37 EDT by Ciaran Atkins
--- NOTE | 2020-11-22 10:15 | Progress Note ---
Assessment and Plan Assessment and Plan Assessment and plan: 35-year-old -[place] male who presents with status epilepticus , he is with hx of seizure and MS untreated According to record he is compling with his seizure medications #Status epilepticus-- he is seizure free since yestrday extubated and is on the floor Patient given Ativan and midazolam in the field, seizures abated Patient placed on Keppra 1500 mg twice daily IV and Vimpat 150 mg IV twice daily - will advance vimpat to 150 mg bid -EEG today is remarkable for mild slowing and more pronounced slowing left side --check MRI brain - MRI brain with Gd is pending #Sepsis with unknown etiology Patient placed on Zosyn and vancomycin Blood cultures pending Urine and urine culture pending Trend leukocytosis/CBC #Fever of unknown origin Possibly secondary to status epilepticus We will obtain Covid screen with appropriate isolation #History of multiple sclerosis No intervention at this time, continue to follow -MRI brain with Gd - he is scheduled to see neurology as out pt. - he is on no treatment as per record. -he is with difficulty with bladder control and left lower ext. weakness ? MS vs lumber radiculopathy #Hypoglycemia D5 normal saline Accu-Cheks #Tachycardia Secondary to sepsis, slowly resolving with fluids Continue fluids CODE STATUS: Full DVT prophylaxis: Heparin PLAN 1- Review MRI brain 2- Keppra 1500 mg bid po 3- Vimpat 150 mg po bid 4- Pt therapy 6- Neurology follow up will check on MRI brain sign off Subjective Date of service: 11/22/20 Principal diagnosis: seizure ? MS Interval history: No more seizure alert respond to simple command , not recall having seizure according to him he is taking medications as Rx MRI is pending he is with left side weakness according to him for some time and difficulty ambulating he is with difficulty with bladder control Objective - Vital Sign Vital Signs - 12hr 11/22/20 11/22/20 11/22/20 00:00 00:04 04:00 Temperature 99.4 F Pulse Rate 91 H 99 H 127 H Pulse Rate [ 102 H From Monitor] Respiratory 18 20 Rate Blood Pressure 111/69 Blood Pressure [Right] O2 Sat by Pulse 100 99 Oximetry 11/22/20 11/22/20 11/22/20 04:25 08:06 08:24 Temperature 99.0 F Pulse Rate 100 H 84 Pulse Rate [ From Monitor] Respiratory 18 18 Rate Blood Pressure 116/74 Blood Pressure 118/72 [Right] O2 Sat by Pulse 99 100 99 Oximetry 11/22/20 09:49 Temperature 98.2 F Pulse Rate Pulse Rate [ From Monitor] Respiratory Rate Blood Pressure Blood Pressure [Right] O2 Sat by Pulse Oximetry - General Apperance Constitutional: uncomfortable, other (anxious worried about his weakness and seizure he is taking med. as RX.) - EENT EENT: PERRL, mucous membranes moist - Respiratory Respiratory: chest non-tender, lungs clear, rhonchi - Cardiovascular Cardiovascular: regular rate, normal S2 Extremities: no peripheral edema bilat - Gastrointestinal Gastrointestinal: normoactive bowel sounds - Integumentary Integumentary: normal - Neurologic Cranial nerve examination: PERRL, EOMI, intact Speech examination: intact Detailed motor examination: other - Laboratory Findings CBC and BMP: 11/20/20 07:52 11/21/20 08:12 Abnormal Lab Findings: Abnormal Labs 11/18/20 11/18/20 11/18/20 07:05 07:09 07:09 WBC 12.0 H RBC 5.04 H Hgb Hct Plt Count Lymph % (Auto) 2.2 L Eddy % (Auto) 8.5 H Lymph # (Auto) 0.3 L Eddy # (Auto) 1.0 H Seg Neutrophils % 89.0 H Seg Neutrophils # 10.7 H D-Dimer ABG pH POC ABG pCO2 POC ABG pO2 ABG pO2 ABG Base Excess ABG Oxyhemoglobin ABG Sodium ABG Chloride ABG Glucose Oxyhemoglobin Potassium Chloride BUN Creatinine Glucose 66 L POC Glucose Calcium 8.3 L Total Creatine Kinase 200 H Arterial Blood Glucose Arterial Blood Ionized Calcium Vancomycin Trough 11/18/20 11/18/20 11/18/20 17:02 17:02 18:52 WBC RBC 5.41 H Hgb 15.4 H Hct 45.7 H Plt Count 120 L Lymph % (Auto) 4.0 L Eddy % (Auto) Lymph # (Auto) 0.4 L Eddy # (Auto) Seg Neutrophils % 89.0 H Seg Neutrophils # 9.4 H D-Dimer 1161.92 H ABG pH POC ABG pCO2 POC ABG pO2 ABG pO2 71.1 L ABG Base Excess -3.8 L ABG Oxyhemoglobin ABG Sodium ABG Chloride ABG Glucose Oxyhemoglobin 93.7 L Potassium Chloride BUN Creatinine Glucose POC Glucose Calcium Total Creatine Kinase Arterial Blood Glucose Arterial Blood Ionized Calcium Vancomycin Trough 11/18/20 11/19/20 11/19/20 19:28 03:57 05:16 WBC RBC Hgb Hct Plt Count Lymph % (Auto) Eddy % (Auto) Lymph # (Auto) Eddy # (Auto) Seg Neutrophils % Seg Neutrophils # D-Dimer ABG pH 7.482 H POC ABG pCO2 26.7 L POC ABG pO2 142.7 H ABG pO2 ABG Base Excess ABG Oxyhemoglobin 98.5 H ABG Sodium 135.9 L ABG Chloride 108.0 H ABG Glucose 119 H Oxyhemoglobin Potassium Chloride BUN Creatinine Glucose POC Glucose 118 H 123 H Calcium Total Creatine Kinase Arterial Blood Glucose 119 H Arterial Blood Ionized Calcium 4.5 L Vancomycin Trough 11/19/20 11/19/20 11/19/20 06:47 09:36 12:20 WBC RBC Hgb Hct Plt Count Lymph % (Auto) Eddy % (Auto) Lymph # (Auto) Eddy # (Auto) Seg Neutrophils % Seg Neutrophils # D-Dimer ABG pH POC ABG pCO2 POC ABG pO2 ABG pO2 ABG Base Excess ABG Oxyhemoglobin ABG Sodium ABG Chloride ABG Glucose Oxyhemoglobin Potassium 3.5 L Chloride BUN 6 L Creatinine 0.6 L Glucose 119 H POC Glucose 113 H 111 H Calcium 8.0 L Total Creatine Kinase 2179 H Arterial Blood Glucose Arterial Blood Ionized Calcium Vancomycin Trough 11/19/20 11/20/20 11/20/20 21:36 03:13 05:24 WBC RBC Hgb Hct Plt Count Lymph % (Auto) Eddy % (Auto) Lymph # (Auto) Eddy # (Auto) Seg Neutrophils % Seg Neutrophils # D-Dimer ABG pH POC ABG pCO2 POC ABG pO2 127.4 H 109.0 H ABG pO2 ABG Base Excess ABG Oxyhemoglobin ABG Sodium ABG Chloride 108.0 H 108.0 H ABG Glucose 133 H 108 H Oxyhemoglobin Potassium Chloride BUN Creatinine Glucose POC Glucose 118 H Calcium Total Creatine Kinase Arterial Blood Glucose 133 H 108 H Arterial Blood Ionized Calcium Vancomycin Trough 11/20/20 11/20/20 11/20/20 07:52 07:52 07:52 WBC RBC Hgb Hct Plt Count 103 L Lymph % (Auto) Eddy % (Auto) Lymph # (Auto) Eddy # (Auto) Seg Neutrophils % Seg Neutrophils # D-Dimer ABG pH POC ABG pCO2 POC ABG pO2 ABG pO2 ABG Base Excess ABG Oxyhemoglobin ABG Sodium ABG Chloride ABG Glucose Oxyhemoglobin Potassium 3.3 L Chloride 107.2 H BUN 5 L Creatinine 0.5 L Glucose 134 H POC Glucose Calcium 7.7 L Total Creatine Kinase 998 H Arterial Blood Glucose Arterial Blood Ionized Calcium Vancomycin Trough 11/20/20 11/20/20 11/21/20 17:38 23:13 01:12 WBC RBC Hgb Hct Plt Count Lymph % (Auto) Eddy % (Auto) Lymph # (Auto) Eddy # (Auto) Seg Neutrophils % Seg Neutrophils # D-Dimer ABG pH POC ABG pCO2 POC ABG pO2 ABG pO2 ABG Base Excess ABG Oxyhemoglobin ABG Sodium ABG Chloride ABG Glucose Oxyhemoglobin Potassium Chloride BUN Creatinine Glucose POC Glucose 111 H 112 H Calcium Total Creatine Kinase Arterial Blood Glucose Arterial Blood Ionized Calcium Vancomycin Trough < 4.0 L 11/21/20 11/21/20 11/21/20 04:08 08:12 11:51 WBC RBC Hgb Hct Plt Count Lymph % (Auto) Eddy % (Auto) Lymph # (Auto) Eddy # (Auto) Seg Neutrophils % Seg Neutrophils # D-Dimer ABG pH POC ABG pCO2 POC ABG pO2 130.4 H ABG pO2 ABG Base Excess ABG Oxyhemoglobin ABG Sodium ABG Chloride 109.0 H ABG Glucose 126 H Oxyhemoglobin Potassium Chloride 108.7 H BUN 4 L Creatinine 0.4 L Glucose 107 H POC Glucose 111 H Calcium 8.0 L Total Creatine Kinase Arterial Blood Glucose 126 H Arterial Blood Ionized Calcium Vancomycin Trough
[2020-11-22] MEDS ORDERED: FLU VACC QUAD 2020-2021 (6 months +)/PF 60 0.5 ML SYRINGE IM ONE (14:30)
[2020-11-22] MEDS: levETIRAcetam 500 MG/5 ML ORAL LIQD PO SCH (21:19)
[2020-11-22] MEDS: LACOSAMIDE 50 MG TAB PO SCH (21:20)
[2020-11-23] MEDS: ACETAMINOPHEN 325 MG TAB PO PRN ×3 (00:14→21:22)
[2020-11-23] MEDS: INSULIN LISPRO 100 UNIT/ML SUB-Q SCH ×3 (00:15→14:04)
--- NOTE | 2020-11-23 09:09 | Progress Note ---
Assessment and Plan Assessment and plan: This is a 35-year-old male with multiple sclerosis and epilepsy who presents to the emergency department on 11/18 with acute seizures (witnessed at home) and was given 2 mg of Ativan and 2 mg of diazepam until cessation after 30 minutes. In the emergency department patient was found to be tachycardic with heart rate of 146, febrile to 102 and was given IV Keppra. Patient was admitted to the hospitalist service with consults to [facility] for potential sepsis, COVID-19 PUI and seizures. Per family patient has a history of MS diagnosed at age of 16 not on any medications. Had an outpatient scheduled neuro evaluation -11/18 CXR shows patchy bilateral pulmonary infiltrates with mild improvement on the left but not worsened on the right, gaseous distention of the stomach -11/18 CTA chest shows bilateral bronchopneumonia (multifocal patchy airspace parenchymal disease left upper and both lower lobes most pronounced within the right lower lobe) -11/18 CT head shows no acute intracranial abnormality, mild diffuse cortical volume loss which is stable but appears advanced for age. No acute changes appr eciated since 09/05/2019 exam -Trend CBC and BMP 11/19: Patient was intubated yesterday evening for tachycardia and respiratory distress. Ddimer was elevated and he obtained a CTA chest which was read as no PE but bronchopnemonia. His abx will be changed to cefepime from zosyn and continue vancomycin. Ntr consult for TF. Hypokalemia repleted, restarted home trileptal. Given LR bolus and fentanyl bolus in hopes to help with tachycardia. 11/20: Overnight patient had reported hunt secretions from OETT but this morning when suctioned by RT and RN there were no hunt secretions. CXR which showed interval improvement in bilateral opacities. [facility] plans to extubate tomorrow, RN to restart TF now. Will monitor and drop IVF rate if tolerating. We will replete potassium. EEG ordered for today. 11/21: Pulmonary input noted patient continues on the ventilator. Discussed with neurologist at the bedside today plan for EEG and MRI especially considering left-sided weakness. He is also readjusted the patient's seizure meds to the home dose stopping Trileptal and starting back on Vimpat as patient takes at home. Silk Weaver plans to reevaluate mechanical ventilator for possible extubation today. Leukocytosis improved if no culture growth we will discuss with spinner cap frame about possible discontinuing antibiotics and monitoring off antibiotics. 11/22: Patient clinically stable this morning post extubation no new complaints EEG was consistent with encephalopathic process possible postictal otherwise no new issues noted patient is more awake and alert this morning. No seizure events was noted overnight. We are awaiting MRI and if negative per neurologist patient can be discharged. We will continue management outpatient follow-up with primary care physician. Covid test was negative Vimpat was adjusted by neurology to 150 mg 11/23: MRI was not done yesterday pending today. MRI of the cervical spine. Patient also noted to be significantly lethargic requires SNF placement. Again Covid test was negative we will continue on process no change in treatment plan at this time. Continue rehab. Status epilepticus Acute respiratory failure Fever of unknown origin Sepsis, POA (possible aspiration pneumonia) Hypokalemia Deconditioning History of multiple sclerosis Status epilepticus Acute respiratory failure Fever of unknown origin Sepsis, POA (possible aspiration) Hypokalemia History of multiple sclerosis -[facility] and neurology consulted, appreciate recommendations -s/p Ativan and midazolam by EMS -Keppra 1500 BID, Oxcarbazepine 300mg BID -PRN Ativan, fentanyl -Wean MV as tolerated, VAP bundle -IV abx -Once TF at goal, will discontinue IVF -Accucheck q6hrs, SSI -COVID PCR negative -Seizure/Aspiration precautions -EEG pending DVT/GI prophylaxis: Heparin subcu, SCDs to bilateral lower extremities while in bed, PPI Disposition: ICU History Interval history: Patient seen and examined remains intubated. No new seizures noted. Patient significantly lethargic requiring placement to SNF for rehab purposes Hospitalist Physical - Physical exam Narrative exam: General appearance: Present: no acute distress, awake - EENT Eyes: Present: PERRL, EOM intact no nystagmus ENT: clear oral mucosa - Neck Neck: Present: normal ROM - Respiratory Respiratory effort: normal Respiratory: bilateral: CTA - Cardiovascular Rhythm: regular Heart Sounds: Present: S1 & S2. Absent: systolic murmur, diastolic murmur - Extremities Extremities: no ischemia, pulses intact, pulses symmetrical, No edema, normal temperature, normal color Peripheral Pulses: within normal limits - Abdominal General gastrointestinal: soft, non-tender, non-distended, normal bowel sounds - Integumentary Integumentary: Present: clear, warm, dry - Psychiatric Psychiatric: cooperative - Neurologic Neurologic: moves all extremities, speaks although slow. (follows commands, PERRL, (+) track/focus) - Allied Health Allied health notes reviewed: nursing, RT, social work - Constitutional Vitals: Temp Pulse Resp BP Pulse Ox 98.5 F 77 18 114/74 99 11/23/20 08:33 11/23/20 08:33 11/23/20 08:33 11/23/20 08:33 11/23/20 08:33 General appearance: Present: no acute distress, other (sedated and resting on the ventilator) Results - Labs CBC & Chem 7: 11/20/20 07:52 11/21/20 08:12 Labs: Laboratory Last Values WBC 9.3 K/mm3 (4.5-11.0) 11/20/20 07:52 RBC 4.58 M/mm3 (3.65-5.03) 11/20/20 07:52 Hgb 13.0 gm/dl (11.8-15.2) 11/20/20 07:52 Hct 38.3 % (35.5-45.6) D 11/20/20 07:52 MCV 84 fl (84-94) 11/20/20 07:52 MCH 28 pg (28-32) 11/20/20 07:52 MCHC 34 % (32-34) 11/20/20 07:52 RDW 14.2 % (13.2-15.2) 11/20/20 07:52 Plt Count 103 K/mm3 (140-440) L 11/20/20 07:52 Lymph % (Auto) 4.0 % (13.4-35.0) L 11/18/20 17:02 [place] % (Auto) 6.9 % (0.0-7.3) 11/18/20 17:02 Eos % (Auto) 0.0 % (0.0-4.3) 11/18/20 17:02 Baso % (Auto) 0.1 % (0.0-1.8) 11/18/20 17:02 Lymph # (Auto) 0.4 K/mm3 (1.2-5.4) L 11/18/20 17:02 [place] # (Auto) 0.7 K/mm3 (0.0-0.8) 11/18/20 17:02 Eos # (Auto) 0.0 K/mm3 (0.0-0.4) 11/18/20 17:02 Baso # (Auto) 0.0 K/mm3 (0.0-0.1) 11/18/20 17:02 Seg Neutrophils % 89.0 % (40.0-70.0) H 11/18/20 17:02 Seg Neutrophils # 9.4 K/mm3 (1.8-7.7) H 11/18/20 17:02 D-Dimer 1161.92 ng/mlDDU (0-234) H 11/18/20 17:02 ABG pH 7.383 (7.320-7.450) 11/21/20 04:08 POC ABG pCO2 40.6 mmHg (32.0-48.0) 11/21/20 04:08 ABG pCO2 34.3 mm Hg 11/18/20 18:52 POC ABG pO2 130.4 mmHg (83-108) H 11/21/20 04:08 ABG pO2 71.1 mm Hg (80.0-90.0) L 11/18/20 18:52 POC ABG HCO3 23.6 11/21/20 04:08 ABG HCO3 20.3 mmol/L (20.0-26.0) 11/18/20 18:52 ABG O2 Saturation 98.6 (0-100) 11/21/20 04:08 ABG O2 Content 19.6 (0.0-44) 11/18/20 18:52 POC ABG Base Excess -1.3 11/21/20 04:08 ABG Base Excess -3.8 mmol/L (-2.0-3.0) L 11/18/20 18:52 ABG Hemoglobin 12.7 (12.0-17.5) 11/21/20 04:08 ABG Oxyhemoglobin 97.8 (94-98) 11/21/20 04:08 ABG Carboxyhemoglobin 1.1 % (0.0-5.0) 11/18/20 18:52 ABG Methemoglobin 0.3 (0.0-1.5) 11/21/20 04:08 ABG Sodium 140.8 mmol/L (136.0-145.0) 11/21/20 04:08 ABG Potassium 3.4 mmol/L (3.40-4.50) 11/21/20 04:08 ABG Chloride 109.0 mmol/L (98-107) H 11/21/20 04:08 ABG Glucose 126 mg/dL (65-95) H 11/21/20 04:08 Oxyhemoglobin 93.7 % (95.0-99.0) L 11/18/20 18:52 Carboxyhemoglobin 0.5 (0.5-1.5) 11/21/20 04:08 FiO2 50 % 11/18/20 18:52 FiO2 % 35.0 11/21/20 04:08 Sodium 142 mmol/L (137-145) 11/21/20 08:12 Potassium 4.2 mmol/L (3.6-5.0) D 11/21/20 08:12 Chloride 108.7 mmol/L (98-107) H 11/21/20 08:12 Carbon Dioxide 26 mmol/L (22-30) 11/21/20 08:12 Anion Gap 12 mmol/L 11/21/20 08:12 BUN 4 mg/dL (9-20) L 11/21/20 08:12 Creatinine 0.4 mg/dL (0.8-1.3) L 11/21/20 08:12 Estimated GFR > 60 ml/min 11/21/20 08:12 BUN/Creatinine Ratio 10 % 11/21/20 08:12 Glucose 107 mg/dL (75-100) H 11/21/20 08:12 POC Glucose 85 mg/dL (70-105) 11/23/20 05:00 Lactic Acid 1.90 mmol/L (0.7-2.0) 11/18/20 17:02 Calcium 8.0 mg/dL (8.4-10.2) L 11/21/20 08:12 Magnesium 2.10 mg/dL (1.7-2.3) 11/18/20 07:09 Total Creatine Kinase 998 units/L (55-170) H 11/20/20 07:52 TSH 1.730 mlU/mL (0.270-4.200) 11/18/20 07:09 Free T4 1.19 ng/dL (0.76-1.46) 11/18/20 07:09 Arterial Blood Glucose 126 mg/dL (65-95) H 11/21/20 04:08 Arterial Blood Ionized Calcium 4.6 mg/dL (4.6-5.3) 11/21/20 04:08 Urine Color Straw (Yellow) 11/18/20 10:50 Urine Turbidity Clear (Clear) 11/18/20 10:50 Urine pH 6.0 (5.0-7.0) 11/18/20 10:50 Ur Specific [place] 1.009 (1.003-1.030) 11/18/20 10:50 Urine Protein <15 mg/dl mg/dL (Negative) 11/18/20 10:50 Urine Glucose (UA) Neg mg/dL (Negative) 11/18/20 10:50 Urine Ketones 20 mg/dL (Negative) 11/18/20 10:50 Urine Blood Sm (Negative) 11/18/20 10:50 Urine Nitrite Neg (Negative) 11/18/20 10:50 Urine Bilirubin Neg (Negative) 11/18/20 10:50 Urine Urobilinogen < 2.0 mg/dL (<2.0) 11/18/20 10:50 Ur Leukocyte Esterase Neg (Negative) 11/18/20 10:50 Urine WBC (Auto) 1.0 /HPF (0.0-6.0) 11/18/20 10:50 Urine RBC (Auto) 1.0 /HPF (0.0-6.0) 11/18/20 10:50 Nasal Screen MRSA (PCR) Negative (Negative) 11/19/20 13:31 Vancomycin Trough < 4.0 ug/mL (5.0-20.0) L 11/21/20 01:12 Coronavirus (PCR) Negative (Negative) 11/19/20 Unknown Microbiology: Microbiology 11/18/20 12:37 Peripheral/Venous Blood Culture - Preliminary NO GROWTH AFTER 4 DAYS 11/18/20 12:37 Peripheral/Venous Blood Culture - Preliminary NO GROWTH AFTER 4 DAYS 11/18/20 18:56 Tracheal Aspirate Sputum Culture - Final [place]/IV: Voiding Method Urinal Active Medications - Current Medications Current Medications: Generic Name Dose Route Start Last Admin Trade Name Freq PRN Reason Stop Dose Admin Acetaminophen 650 mg 11/18/20 12:15 11/23/20 00:14 Acetaminophen 325 Mg Tab PO 650 mg Q4H PRN Administration Pain MILD(1-3)/Fever >100.5/KURTZ Lipase/Protease/Amylase 1 each 11/19/20 12:55 Lipase 10,500/Protease 25,000/Amylase 43,750 (Units) Dr Joya FEEDTUBE PRN PRN For Clogged Feeding Tube Dextrose 50 ml 11/19/20 12:58 Dextrose 50% In Water (25gm) 50 Ml Syringe IV Q30MIN PRN Hypoglycemia Protocol Heparin Sodium (Porcine) 5,000 unit 11/18/20 22:00 11/22/20 21:20 Heparin 5,000 Unit/1 Ml Vial SUB-Q 5,000 unit Q12HR PIERRE Administration Hydrophilic Ointment 1 applic 11/18/20 17:08 Lip Therapy Vaseline TP Q2HR PRN Dry Lips Insulin Human Lispro 0 unit 11/19/20 18:00 11/23/20 06:17 Insulin Lispro 100 Unit/Ml SUB-Q Not Given Q6HR PIERRE Protocol Lacosamide 150 mg 11/22/20 22:00 11/22/20 21:20 Lacosamide 50 Mg Tab PO 150 mg Q12HR PIERRE Administration Levetiracetam 1,500 mg 11/22/20 22:00 11/22/20 21:19 Levetiracetam 500 Mg/5 Ml Oral Liqd PO 1,500 mg BID PIERRE Administration Lorazepam 2 mg 11/18/20 12:38 Lorazepam 2 Mg/Ml Vial IV Q2MIN PRN Seizures Multi-Ingred Cream/Lotion/Oil/Oint 1 applic 11/18/20 17:08 Mineral Oil/Petrolatum, White Ophth Oint 3.5 Gm OU Q4HR PRN Dry Eye(s) Naloxone HCl 0.1 mg 11/18/20 12:15 Naloxone 0.4 Mg/1 Ml Inj IV Q2MIN PRN Res Rate </= 8 or 02 SAT < 92% Ondansetron HCl 4 mg 11/18/20 12:15 Ondansetron 4 Mg/2 Ml Inj IV Q8H PRN Nausea And Vomiting Simple Syrup 15 ml 11/19/20 12:55 Simple Syrup 15 Ml FEEDTUBE PRN PRN Hypoglycemia Simple Syrup 30 ml 11/19/20 12:55 Simple Syrup 15 Ml FEEDTUBE PRN PRN Hypoglycemia Sodium Bicarbonate 325 mg 11/19/20 12:55 Sodium Bicarbonate 325 Mg Tab FEEDTUBE PRN PRN For Clogged Feeding Tube Sodium Chloride 10 ml 11/18/20 22:00 11/22/20 21:20 Sodium Chloride 0.9% 10 Ml Flush Syringe IV 10 ml BID PIERRE Administration Sodium Chloride 10 ml 11/18/20 12:15 Sodium Chloride 0.9% 10 Ml Flush Syringe IV PRN PRN LINE FLUSH Nutrition/Malnutrition Assess - Dietary Evaluation Nutrition/Malnutrition Findings: Nutrition Notes Start: 11/19/20 09:46 Freq: Status: Active Protocol: Document 11/22/20 12:31 (Rec: 11/22/20 12:36 [email or web address]) Nutrition Notes Initial or Follow up Brief Note Current Diagnosis Sepsis Other Pertinent Diagnosis Status epilepticus, MS Current Diet TF - Osmolite 1.5 at 60ml/hr Height 5 ft 10 in Weight 79.4 kg [place] Body Weight (kg) 75.45 BMI 25.1 Subjective/Other Information FU for TF tolerance. Pt not receiving TF due to NGT being taken out. Pt waiting for speach eval. Minimum of two criteria Yes Body Fat Depletion Mild depletion (non-severe) Muscle Mass Mild Depletion (non-severe) #2 Nutrition Diagnosis Malnutrition Etiology chronic illness As Evidenced by Signs and Symptoms pt with muscle and fat wasting Is patient on ventilator? No Is Patient Ambulatory and/or Out of Bed No REE-([place]-St. Jeor-confined to bed) [phone] Calculation [facility]ations [facility] Additional Notes Pro needs 1.2-1.5g/k-119g /day Fluid needs 1ml/kcal Nutrition Intervention Change Diet Order: diet advancement Goal #1 Diet advancement as medically able Follow-Up By: 11/24/20 Additional Comments FU for [employer] eval and intakes
[2020-11-23] MEDS: levETIRAcetam 500 MG/5 ML ORAL LIQD PO SCH ×2 (10:05→21:21)
[2020-11-23] MEDS: HEPARIN 5,000 UNIT/1 ML VIAL SUB-Q SCH ×2 (10:05→21:22)
[2020-11-23] MEDS: LACOSAMIDE 50 MG TAB PO SCH ×2 (10:06→21:22)
--- NOTE | 2020-11-23 10:20 | Progress Note ---
Assessment and Plan Assessment and Plan 35-year-old -[place] male who presents with status epilepticus , he is with hx of seizure and MS untreated According to record he is compling with his seizure medications #Status epilepticus-- he is seizure free since yestrday extubated and is on the floor Patient placed on Keppra 1500 mg twice daily IV and Vimpat 150 mg IV twice daily change po -EEG today is remarkable for mild slowing and more pronounced slowing left side --check MRI brain - MRI brain with Gd is pending -he is currently seizure free # Weakness left lower extremty with difficulty walking -? central vs possible lumber radiculopathy -MRI lumber spine -Pt therapy - # shy and withdrawn -borderline mental incapacity? -consider psychiatry to see In pt. or out pt. #History of multiple sclerosis No intervention at this time, continue to follow -MRI brain with Gd - he is scheduled to see neurology as out pt. - he is on no treatment as per record. -he is with difficulty with bladder control and left lower ext. weakness ? MS vs lumber radiculopathy #Sepsis with unknown etiology Patient placed on Zosyn and vancomycin #Fever of unknown origin Possibly secondary to status epilepticus We will obtain Covid screen with appropriate isolation #Hypoglycemia D5 normal saline Accu-Cheks #Tachycardia Secondary to sepsis, slowly resolving with fluids Continue fluids CODE STATUS: Full DVT prophylaxis: Heparin PLAN 1- Review MRI brain and Lumber 2- Keppra 1500 mg bid po 3- Vimpat 150 mg po bid 4- Pt therapy 6- Neurology follow up 7- Consider psychiatry follow up. will check on MRI brain Subjective Date of service: 11/23/20 Principal diagnosis: seizure ? MS Interval history: No more seizure alert respond to simple command , not recall having seizure according to him he is taking medications as Rx MRI is pending he is with left side weakness according to him for some time and difficulty ambulating he is with difficulty with bladder control Objective - Vital Sign Vital Signs - 12hr 11/22/20 11/23/20 11/23/20 23:31 00:00 03:48 Temperature 98.9 F 98.0 F Pulse Rate 81 85 63 Respiratory 18 18 Rate Blood Pressure 112/75 125/73 O2 Sat by Pulse 98 100 Oximetry 11/23/20 11/23/20 04:00 08:33 Temperature 98.5 F Pulse Rate 76 77 Respiratory 18 Rate Blood Pressure 114/74 O2 Sat by Pulse 99 Oximetry - General Apperance Constitutional: other (alert he is with decrease speech out put very anxious ? and or posibly scared ? donnie ) - EENT EENT: PERRL, mucous membranes moist - Respiratory Respiratory: lungs clear, rhonchi - Cardiovascular Cardiovascular: regular rate, normal S1, normal S2 Extremities: no peripheral edema bilat - Gastrointestinal Gastrointestinal: normoactive bowel sounds - Integumentary Integumentary: normal - Neurologic Cranial nerve examination: PERRL, EOMI, intact Speech examination: intact Detailed motor examination: grossly full strength in, full strength in all tenisha, other - Laboratory Findings CBC and BMP: 11/20/20 07:52 11/21/20 08:12 Abnormal Lab Findings: Abnormal Labs 11/18/20 11/18/20 11/18/20 07:05 07:09 07:09 WBC 12.0 H RBC 5.04 H Hgb Hct Plt Count Lymph % (Auto) 2.2 L [place] % (Auto) 8.5 H Lymph # (Auto) 0.3 L [place] # (Auto) 1.0 H Seg Neutrophils % 89.0 H Seg Neutrophils # 10.7 H D-Dimer ABG pH POC ABG pCO2 POC ABG pO2 ABG pO2 ABG Base Excess ABG Oxyhemoglobin ABG Sodium ABG Chloride ABG Glucose Oxyhemoglobin Potassium Chloride BUN Creatinine Glucose 66 L POC Glucose Calcium 8.3 L Total Creatine Kinase 200 H Arterial Blood Glucose Arterial Blood Ionized Calcium Vancomycin Trough 11/18/20 11/18/20 11/18/20 17:02 17:02 18:52 WBC RBC 5.41 H Hgb 15.4 H Hct 45.7 H Plt Count 120 L Lymph % (Auto) 4.0 L [place] % (Auto) Lymph # (Auto) 0.4 L [place] # (Auto) Seg Neutrophils % 89.0 H Seg Neutrophils # 9.4 H D-Dimer 1161.92 H ABG pH POC ABG pCO2 POC ABG pO2 ABG pO2 71.1 L ABG Base Excess -3.8 L ABG Oxyhemoglobin ABG Sodium ABG Chloride ABG Glucose Oxyhemoglobin 93.7 L Potassium Chloride BUN Creatinine Glucose POC Glucose Calcium Total Creatine Kinase Arterial Blood Glucose Arterial Blood Ionized Calcium Vancomycin Trough 05/11/19/20 11/19/20 19:28 03:57 05:16 WBC RBC Hgb Hct Plt Count Lymph % (Auto) [place] % (Auto) Lymph # (Auto) [place] # (Auto) Seg Neutrophils % Seg Neutrophils # D-Dimer ABG pH 7.482 H POC ABG pCO2 26.7 L POC ABG pO2 142.7 H ABG pO2 ABG Base Excess ABG Oxyhemoglobin 98.5 H ABG Sodium 135.9 L ABG Chloride 108.0 H ABG Glucose 119 H Oxyhemoglobin Potassium Chloride BUN Creatinine Glucose POC Glucose 118 H 123 H Calcium Total Creatine Kinase Arterial Blood Glucose 119 H Arterial Blood Ionized Calcium 4.5 L Vancomycin Trough 11/19/20 11/19/20 11/19/20 06:47 09:36 12:20 WBC RBC Hgb Hct Plt Count Lymph % (Auto) [place] % (Auto) Lymph # (Auto) [place] # (Auto) Seg Neutrophils % Seg Neutrophils # D-Dimer ABG pH POC ABG pCO2 POC ABG pO2 ABG pO2 ABG Base Excess ABG Oxyhemoglobin ABG Sodium ABG Chloride ABG Glucose Oxyhemoglobin Potassium 3.5 L Chloride BUN 6 L Creatinine 0.6 L Glucose 119 H POC Glucose 113 H 111 H Calcium 8.0 L Total Creatine Kinase 2179 H Arterial Blood Glucose Arterial Blood Ionized Calcium Vancomycin Trough 11/19/20 11/20/20 11/20/20 21:36 03:13 05:24 WBC RBC Hgb Hct Plt Count Lymph % (Auto) [place] % (Auto) Lymph # (Auto) [place] # (Auto) Seg Neutrophils % Seg Neutrophils # D-Dimer ABG pH POC ABG pCO2 POC ABG pO2 127.4 H 109.0 H ABG pO2 ABG Base Excess ABG Oxyhemoglobin ABG Sodium ABG Chloride 108.0 H 108.0 H ABG Glucose 133 H 108 H Oxyhemoglobin Potassium Chloride BUN Creatinine Glucose POC Glucose 118 H Calcium Total Creatine Kinase Arterial Blood Glucose 133 H 108 H Arterial Blood Ionized Calcium Vancomycin Trough 11/20/20 11/20/20 11/20/20 07:52 07:52 07:52 WBC RBC Hgb Hct Plt Count 103 L Lymph % (Auto) [place] % (Auto) Lymph # (Auto) [place] # (Auto) Seg Neutrophils % Seg Neutrophils # D-Dimer ABG pH POC ABG pCO2 POC ABG pO2 ABG pO2 ABG Base Excess ABG Oxyhemoglobin ABG Sodium ABG Chloride ABG Glucose Oxyhemoglobin Potassium 3.3 L Chloride 107.2 H BUN 5 L Creatinine 0.5 L Glucose 134 H POC Glucose Calcium 7.7 L Total Creatine Kinase 998 H Arterial Blood Glucose Arterial Blood Ionized Calcium Vancomycin Trough 11/20/20 11/20/20 11/21/20 17:38 23:13 01:12 WBC RBC Hgb Hct Plt Count Lymph % (Auto) [place] % (Auto) Lymph # (Auto) [place] # (Auto) Seg Neutrophils % Seg Neutrophils # D-Dimer ABG pH POC ABG pCO2 POC ABG pO2 ABG pO2 ABG Base Excess ABG Oxyhemoglobin ABG Sodium ABG Chloride ABG Glucose Oxyhemoglobin Potassium Chloride BUN Creatinine Glucose POC Glucose 111 H 112 H Calcium Total Creatine Kinase Arterial Blood Glucose Arterial Blood Ionized Calcium Vancomycin Trough < 4.0 L 11/21/20 11/21/20 11/21/20 04:08 08:12 11:51 WBC RBC Hgb Hct Plt Count Lymph % (Auto) [place] % (Auto) Lymph # (Auto) [place] # (Auto) Seg Neutrophils % Seg Neutrophils # D-Dimer ABG pH POC ABG pCO2 POC ABG pO2 130.4 H ABG pO2 ABG Base Excess ABG Oxyhemoglobin ABG Sodium ABG Chloride 109.0 H ABG Glucose 126 H Oxyhemoglobin Potassium Chloride 108.7 H BUN 4 L Creatinine 0.4 L Glucose 107 H POC Glucose 111 H Calcium 8.0 L Total Creatine Kinase Arterial Blood Glucose 126 H Arterial Blood Ionized Calcium Vancomycin Trough 11/22/20 11/22/20 12:22 17:44 WBC RBC Hgb Hct Plt Count Lymph % (Auto) [place] % (Auto) Lymph # (Auto) [place] # (Auto) Seg Neutrophils % Seg Neutrophils # D-Dimer ABG pH POC ABG pCO2 POC ABG pO2 ABG pO2 ABG Base Excess ABG Oxyhemoglobin ABG Sodium ABG Chloride ABG Glucose Oxyhemoglobin Potassium Chloride BUN Creatinine Glucose POC Glucose 108 H 118 H Calcium Total Creatine Kinase Arterial Blood Glucose Arterial Blood Ionized Calcium Vancomycin Trough
--- NOTE | 2020-11-23 15:43 | Magnetic Resonance Report ---
MRI lumbar spine without contrast HISTORY: leg weakness. TECHNIQUE: Multiplanar, multiphasic imaging performed without the use of intravenous contrast. COMPARISON: None FINDINGS: Alignment: Normal. Soft tissues: No cord signal abnormality identified. No significant incidental soft tissue finding. Bones: Significant incidental bone findings: None Levels: L1/2-L3/4: Unremarkable. L4/5: Mild discogenic DJD and facet arthropathy with small posterior annular disc tear and disc bulge which extends slightly left of midline resulting in mild asymmetric left-sided foraminal stenosis. N o canal or right-sided foraminal stenosis. L5/S1: Mild discogenic DJD and facet arthropathy with small posterior annular tear in the midline. Th ere is a resultant small posterior disc bulge but no significant canal or foraminal stenosis. IMPRESSION: 1. Small posterior annular disc tears and bulges at L4 and L5 with mild left-sided foraminal stenosi s at L4/5. Signer Name: Kadeem Bañuelos MD Signed: 11/23/2020 3:39 PM Workstation Name: [id number]
--- NOTE | 2020-11-23 15:58 | Magnetic Resonance Report ---
MR brain wo con INDICATION / CLINICAL INFORMATION: seizure, cva. TECHNIQUE: Multiplanar, multisequence MR images of the brain were obtained. COMPARISON: CT 11/18/2020 FINDINGS: INTRACRANIAL: Generalized atrophy. Advanced white matter disease involving the supratentorial and inf ratentorial brain parenchyma. The periventricular lesions demonstrate perpendicular axis to the later al ventricles.. No restricted diffusion. No hemorrhage. Ventricular caliber is normal. No extra-axial collection. No mass. No herniation. Major intracranial vascular flow voids are preserved. ORBITS: No significant abnormality of visualized orbits. SINUSES / MASTOIDS: No significant abnormality of visualized sinuses and mastoid air cells. ADDITIONAL FINDINGS: None. IMPRESSION: 1. Advanced white matter disease consistent with underlying multiple sclerosis with diffuse atrophy. Signer Name: Marcus Lemons MD Signed: 11/23/2020 3:53 PM Workstation Name: [id number]
[2020-11-24] MEDS: LACOSAMIDE 50 MG TAB PO SCH ×2 (09:48→22:07)
[2020-11-24] MEDS: levETIRAcetam 500 MG/5 ML ORAL LIQD PO SCH ×2 (09:48→22:09)
[2020-11-24] MEDS: HEPARIN 5,000 UNIT/1 ML VIAL SUB-Q SCH ×2 (09:49→22:11)
--- NOTE | 2020-11-24 12:28 | Progress Note ---
Assessment and Plan Assessment and plan: This is a 35-year-old male with multiple sclerosis and epilepsy who presents to the emergency department on 11/18 with acute seizures (witnessed at home) and was given 2 mg of Ativan and 2 mg of diazepam until cessation after 30 minutes. In the emergency department patient was found to be tachycardic with heart rate of 146, febrile to 102 and was given IV Keppra. Patient was admitted to the hospitalist service with consults to [facility] for potential sepsis, COVID-19 PUI and seizures. Per family patient has a history of MS diagnosed at age of 16 not on any medications. Had an outpatient scheduled neuro evaluation -11/18 CXR shows patchy bilateral pulmonary infiltrates with mild improvement on the left but not worsened on the right, gaseous distention of the stomach -11/18 CTA chest shows bilateral bronchopneumonia (multifocal patchy airspace parenchymal disease left upper and both lower lobes most pronounced within the right lower lobe) -11/18 CT head shows no acute intracranial abnormality, mild diffuse cortical volume loss which is stable but appears advanced for age. No acute changes appr eciated since 09/05/2019 exam -Trend CBC and BMP 11/19: Patient was intubated yesterday evening for tachycardia and respiratory distress. Ddimer was elevated and he obtained a CTA chest which was read as no PE but bronchopnemonia. His abx will be changed to cefepime from zosyn and continue vancomycin. Ntr consult for TF. Hypokalemia repleted, restarted home trileptal. Given LR bolus and fentanyl bolus in hopes to help with tachycardia. 11/20: Overnight patient had reported hunt secretions from OETT but this morning when suctioned by RT and RN there were no hunt secretions. CXR which showed interval improvement in bilateral opacities. [facility] plans to extubate tomorrow, RN to restart TF now. Will monitor and drop IVF rate if tolerating. We will replete potassium. EEG ordered for today. 11/21: Pulmonary input noted patient continues on the ventilator. Discussed with neurologist at the bedside today plan for EEG and MRI especially considering left-sided weakness. He is also readjusted the patient's seizure meds to the home dose stopping Trileptal and starting back on Vimpat as patient takes at home. Laminating Machine Operator plans to reevaluate mechanical ventilator for possible extubation today. Leukocytosis improved if no culture growth we will discuss with fleet maintenance manager about possible discontinuing antibiotics and monitoring off antibiotics. 11/22: Patient clinically stable this morning post extubation no new complaints EEG was consistent with encephalopathic process possible postictal otherwise no new issues noted patient is more awake and alert this morning. No seizure events was noted overnight. We are awaiting MRI and if negative per neurologist patient can be discharged. We will continue management outpatient follow-up with primary care physician. Covid test was negative Vimpat was adjusted by neurology to 150 mg 11/23: MRI was not done yesterday pending today. MRI of the cervical spine. Patient also noted to be significantly lethargic requires SNF placement. Again Covid test was negative we will continue on process no change in treatment plan at this time. Continue rehab. 11/24: Patient clinically stable for discharge to inpatient SNF, due to debility. MRI was unremarkable for CVA although MRI C-Spine showed, budging disc. outpatient MINDI recommendation for further evaluation. There is no clear evidence of MS excerbation. Status epilepticus Acute respiratory failure Fever of unknown origin Sepsis, POA (possible aspiration pneumonia) Hypokalemia Deconditioning History of multiple sclerosis Status epilepticus Acute respiratory failure Fever of unknown origin Sepsis, POA (possible aspiration) Hypokalemia History of multiple sclerosis -[facility] and neurology consulted, appreciate recommendations -s/p Ativan and midazolam by EMS -Keppra 1500 BID, Oxcarbazepine 300mg BID -PRN Ativan, fentanyl -Wean MV as tolerated, VAP bundle -IV abx -Once TF at goal, will discontinue IVF -Accucheck q6hrs, SSI -COVID PCR negative -Seizure/Aspiration precautions -EEG pending DVT/GI prophylaxis: Heparin subcu, SCDs to bilateral lower extremities while in bed, PPI Disposition: ICU History Interval history: Patient seen and examined remains intubated. No new seizures noted. awaiting placement to snf, no new complaint, still lethargic with unsteady gait Hospitalist Physical - Physical exam Narrative exam: General appearance: Present: no acute distress, awake - EENT Eyes: Present: PERRL, EOM intact no nystagmus ENT: clear oral mucosa - Neck Neck: Present: normal ROM - Respiratory Respiratory effort: normal Respiratory: bilateral: CTA - Cardiovascular Rhythm: regular Heart Sounds: Present: S1 & S2. Absent: systolic murmur, diastolic murmur - Extremities Extremities: no ischemia, pulses intact, pulses symmetrical, No edema, normal temperature, normal color Peripheral Pulses: within normal limits - Abdominal General gastrointestinal: soft, non-tender, non-distended, normal bowel sounds - Integumentary Integumentary: Present: clear, warm, dry - Psychiatric Psychiatric: cooperative - Neurologic Neurologic: moves all extremities, speaks although slow. (follows commands, PERRL, (+) track/focus) - Allied Health Allied health notes reviewed: nursing, RT, social work - Constitutional Vitals: Temp Pulse Resp BP Pulse Ox 98.5 F 81 18 110/72 99 11/24/20 08:14 11/24/20 08:14 11/24/20 10:00 11/24/20 08:14 11/24/20 08:14 General appearance: Present: no acute distress, other (sedated and resting on the ventilator) Results - Labs CBC & Chem 7: 11/20/20 07:52 11/21/20 08:12 Labs: Laboratory Last Values WBC 9.3 K/mm3 (4.5-11.0) 11/20/20 07:52 RBC 4.58 M/mm3 (3.65-5.03) 11/20/20 07:52 Hgb 13.0 gm/dl (11.8-15.2) 11/20/20 07:52 Hct 38.3 % (35.5-45.6) D 11/20/20 07:52 MCV 84 fl (84-94) 11/20/20 07:52 MCH 28 pg (28-32) 11/20/20 07:52 MCHC 34 % (32-34) 11/20/20 07:52 RDW 14.2 % (13.2-15.2) 11/20/20 07:52 Plt Count 103 K/mm3 (140-440) L 11/20/20 07:52 Lymph % (Auto) 4.0 % (13.4-35.0) L 11/18/20 17:02 [place] % (Auto) 6.9 % (0.0-7.3) 11/18/20 17:02 Eos % (Auto) 0.0 % (0.0-4.3) 11/18/20 17:02 Baso % (Auto) 0.1 % (0.0-1.8) 11/18/20 17:02 Lymph # (Auto) 0.4 K/mm3 (1.2-5.4) L 11/18/20 17:02 [place] # (Auto) 0.7 K/mm3 (0.0-0.8) 11/18/20 17:02 Eos # (Auto) 0.0 K/mm3 (0.0-0.4) 11/18/20 17:02 Baso # (Auto) 0.0 K/mm3 (0.0-0.1) 11/18/20 17:02 Seg Neutrophils % 89.0 % (40.0-70.0) H 11/18/20 17:02 Seg Neutrophils # 9.4 K/mm3 (1.8-7.7) H 11/18/20 17:02 D-Dimer 1161.92 ng/mlDDU (0-234) H 11/18/20 17:02 ABG pH 7.383 (7.320-7.450) 11/21/20 04:08 POC ABG pCO2 40.6 mmHg (32.0-48.0) 11/21/20 04:08 ABG pCO2 34.3 mm Hg 11/18/20 18:52 POC ABG pO2 130.4 mmHg (83-108) H 11/21/20 04:08 ABG pO2 71.1 mm Hg (80.0-90.0) L 11/18/20 18:52 POC ABG HCO3 23.6 11/21/20 04:08 ABG HCO3 20.3 mmol/L (20.0-26.0) 11/18/20 18:52 ABG O2 Saturation 98.6 (0-100) 11/21/20 04:08 ABG O2 Content 19.6 (0.0-44) 11/18/20 18:52 POC ABG Base Excess -1.3 11/21/20 04:08 ABG Base Excess -3.8 mmol/L (-2.0-3.0) L 11/18/20 18:52 ABG Hemoglobin 12.7 (12.0-17.5) 11/21/20 04:08 ABG Oxyhemoglobin 97.8 (94-98) 11/21/20 04:08 ABG Carboxyhemoglobin 1.1 % (0.0-5.0) 11/18/20 18:52 ABG Methemoglobin 0.3 (0.0-1.5) 11/21/20 04:08 ABG Sodium 140.8 mmol/L (136.0-145.0) 11/21/20 04:08 ABG Potassium 3.4 mmol/L (3.40-4.50) 11/21/20 04:08 ABG Chloride 109.0 mmol/L (98-107) H 11/21/20 04:08 ABG Glucose 126 mg/dL (65-95) H 11/21/20 04:08 Oxyhemoglobin 93.7 % (95.0-99.0) L 11/18/20 18:52 Carboxyhemoglobin 0.5 (0.5-1.5) 11/21/20 04:08 FiO2 50 % 11/18/20 18:52 FiO2 % 35.0 11/21/20 04:08 Sodium 142 mmol/L (137-145) 11/21/20 08:12 Potassium 4.2 mmol/L (3.6-5.0) D 11/21/20 08:12 Chloride 108.7 mmol/L (98-107) H 11/21/20 08:12 Carbon Dioxide 26 mmol/L (22-30) 11/21/20 08:12 Anion Gap 12 mmol/L 11/21/20 08:12 BUN 4 mg/dL (9-20) L 11/21/20 08:12 Creatinine 0.4 mg/dL (0.8-1.3) L 11/21/20 08:12 Estimated GFR > 60 ml/min 11/21/20 08:12 BUN/Creatinine Ratio 10 % 11/21/20 08:12 Glucose 107 mg/dL (75-100) H 11/21/20 08:12 POC Glucose 85 mg/dL (70-105) 11/23/20 05:00 Lactic Acid 1.90 mmol/L (0.7-2.0) 11/18/20 17:02 Calcium 8.0 mg/dL (8.4-10.2) L 11/21/20 08:12 Magnesium 2.10 mg/dL (1.7-2.3) 11/18/20 07:09 Total Creatine Kinase 998 units/L (55-170) H 11/20/20 07:52 TSH 1.730 mlU/mL (0.270-4.200) 11/18/20 07:09 Free T4 1.19 ng/dL (0.76-1.46) 11/18/20 07:09 Arterial Blood Glucose 126 mg/dL (65-95) H 11/21/20 04:08 Arterial Blood Ionized Calcium 4.6 mg/dL (4.6-5.3) 11/21/20 04:08 Urine Color Straw (Yellow) 11/18/20 10:50 Urine Turbidity Clear (Clear) 11/18/20 10:50 Urine pH 6.0 (5.0-7.0) 11/18/20 10:50 Ur Specific [place] 1.009 (1.003-1.030) 11/18/20 10:50 Urine Protein <15 mg/dl mg/dL (Negative) 11/18/20 10:50 Urine Glucose (UA) Neg mg/dL (Negative) 11/18/20 10:50 Urine Ketones 20 mg/dL (Negative) 11/18/20 10:50 Urine Blood Sm (Negative) 11/18/20 10:50 Urine Nitrite Neg (Negative) 11/18/20 10:50 Urine Bilirubin Neg (Negative) 11/18/20 10:50 Urine Urobilinogen < 2.0 mg/dL (<2.0) 11/18/20 10:50 Ur Leukocyte Esterase Neg (Negative) 11/18/20 10:50 Urine WBC (Auto) 1.0 /HPF (0.0-6.0) 11/18/20 10:50 Urine RBC (Auto) 1.0 /HPF (0.0-6.0) 11/18/20 10:50 Nasal Screen MRSA (PCR) Negative (Negative) 11/19/20 13:31 Vancomycin Trough < 4.0 ug/mL (5.0-20.0) L 11/21/20 01:12 Coronavirus (PCR) Negative (Negative) 11/19/20 Unknown Microbiology: Microbiology 11/18/20 12:37 Peripheral/Venous Blood Culture - Final NO GROWTH AFTER 5 DAYS 11/18/20 12:37 Peripheral/Venous Blood Culture - Final NO GROWTH AFTER 5 DAYS [place]/IV: Voiding Method Urinal Active Medications - Current Medications Current Medications: Generic Name Dose Route Start Last Admin Trade Name Freq PRN Reason Stop Dose Admin Acetaminophen 650 mg 11/18/20 12:15 11/23/20 21:22 Acetaminophen 325 Mg Tab PO 650 mg Q4H PRN Administration Pain MILD(1-3)/Fever >100.5/KURTZ Lipase/Protease/Amylase 1 each 11/19/20 12:55 Lipase 10,500/Protease 25,000/Amylase 43,750 (Units) Dr Joya FEEDTUBE PRN PRN For Clogged Feeding Tube Dextrose 50 ml 11/19/20 12:58 Dextrose 50% In Water (25gm) 50 Ml Syringe IV Q30MIN PRN Hypoglycemia Protocol Heparin Sodium (Porcine) 5,000 unit 11/18/20 22:00 11/24/20 09:49 Heparin 5,000 Unit/1 Ml Vial SUB-Q 5,000 unit Q12HR PIERRE Administration Hydrophilic Ointment 1 applic 11/18/20 17:08 Lip Therapy Vaseline TP Q2HR PRN Dry Lips Lacosamide 150 mg 11/22/20 22:00 11/24/20 09:48 Lacosamide 50 Mg Tab PO 150 mg Q12HR PIERRE Administration Levetiracetam 1,500 mg 11/22/20 22:00 11/24/20 09:48 Levetiracetam 500 Mg/5 Ml Oral Liqd PO 1,500 mg BID PIERRE Administration Lorazepam 2 mg 11/18/20 12:38 Lorazepam 2 Mg/Ml Vial IV Q2MIN PRN Seizures Multi-Ingred Cream/Lotion/Oil/Oint 1 applic 11/18/20 17:08 Mineral Oil/Petrolatum, White Ophth Oint 3.5 Gm OU Q4HR PRN Dry Eye(s) Naloxone HCl 0.1 mg 11/18/20 12:15 Naloxone 0.4 Mg/1 Ml Inj IV Q2MIN PRN Res Rate </= 8 or 02 SAT < 92% Ondansetron HCl 4 mg 11/18/20 12:15 Ondansetron 4 Mg/2 Ml Inj IV Q8H PRN Nausea And Vomiting Simple Syrup 15 ml 11/19/20 12:55 Simple Syrup 15 Ml FEEDTUBE PRN PRN Hypoglycemia Simple Syrup 30 ml 11/19/20 12:55 Simple Syrup 15 Ml FEEDTUBE PRN PRN Hypoglycemia Sodium Bicarbonate 325 mg 11/19/20 12:55 Sodium Bicarbonate 325 Mg Tab FEEDTUBE PRN PRN For Clogged Feeding Tube Sodium Chloride 10 ml 11/18/20 22:00 11/24/20 09:48 Sodium Chloride 0.9% 10 Ml Flush Syringe IV 10 ml BID PIERRE Administration Sodium Chloride 10 ml 11/18/20 12:15 Sodium Chloride 0.9% 10 Ml Flush Syringe IV PRN PRN LINE FLUSH Nutrition/Malnutrition Assess - Dietary Evaluation Nutrition/Malnutrition Findings: Nutrition Notes Start: 11/19/20 09:46 Freq: Status: Active Protocol: Document 11/24/20 10:58 AL (Rec: 11/24/20 11:11 AL [id number]) Co-Sign 11/24/20 10:58 LP Nutrition Notes Initial or Follow up Reassessment Current Diagnosis Sepsis Other Pertinent Diagnosis Status epilepticus, MS Current Diet Cardiac Diet Labs/Tests Reviewed Pertinent Medications Reviewed Height 5 ft 10 in Weight 66 kg [place] Body Weight (kg) 75.45 BMI 20.8 Weight Status Appropriate Subjective/Other Information F/U for diet advancement and speech eval results. Speech recomends regular diet d/t no risk of aspiration. Breakfast tolerated at 100%. Pt has a good appetite since diet advancement. Percent of energy/protein needs met: 100%/100% Current % PO Negligible Minimum of two criteria Yes Body Fat Depletion Mild depletion (non-severe) Muscle Mass Mild Depletion (non-severe) #2 Nutrition Diagnosis Malnutrition Etiology chronic illness As Evidenced by Signs and Symptoms pt with muscle and fat wasting #1 Nutrition Diagnosis Inadequate oral intake As Evidenced by Signs and Symptoms pt passed swallow eval, diet advancement, & pt tolerates PO diet Diagnosis Progress(for reassessment Improved documentation) Is patient on ventilator? No Is Patient Ambulatory and/or Out of Bed No REE-([facility]-confined to bed) [phone] Calculation Used for Recommendations [facility] Additional Notes Protein needs: (0.8-1.0 g/kg Fluid needs: 1 ml/kcal Nutrition Intervention Change Diet Order: Current diet Goal #1 Meet 75% of estimated energy and protein needs PO Goal #2 wt gain/management Anticipated Discharge Needs: Cardiac diet Follow-Up By: 11/28/20 Additional Comments F/U for intakes and need for ONS
--- NOTE | 2020-11-24 12:32 | Progress Note ---
Assessment and Plan Assessment and Plan 35-year-old -[place] male who presents with status epilepticus , he is with hx of seizure and MS untreated According to record he is compling with his seizure medications #Status epilepticus-- he is seizure free since yestrday extubated and is on the floor Patient placed on Keppra 1500 mg twice daily IV and Vimpat 150 mg IV twice daily change po -EEG today is remarkable for mild slowing and more pronounced slowing left side --check MRI brain - MRI brain with Gd is remarkable for diffuse white matter changes done without QD -he is currently seizure free # Weakness left lower extremty with difficulty walking - 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 -consider psychiatry to see In pt. or out pt. #History of multiple sclerosis No intervention at this time, continue to follow - he is scheduled to see neurology as out pt. - he is on no treatment as per record. -he is with difficulty with bladder control and left lower ext. weakness ? MS vs lumber radiculopathy #Sepsis with unknown etiology Patient placed on Zosyn and vancomycin #Fever of unknown origin Possibly secondary to status epilepticus We will obtain Covid screen with appropriate isolation #Hypoglycemia D5 normal saline Accu-Cheks #Tachycardia Secondary to sepsis, slowly resolving with fluids Continue fluids CODE STATUS: Full DVT prophylaxis: Heparin PLAN # Keppra 1500 mg bid po #- Vimpat 150 mg po bid #- Pt therapy #- Neurology follow up #- Consider psychiatry follow up. # Consider orthopedic to see ? and or neurology will sign off Subjective Date of service: 11/24/20 Principal diagnosis: seizure ? MS Interval history: No more seizure alert respond to simple command , not recall having seizure according to him he is taking medications as Rx MRI is with diffuse white matter changes done without qd?? Lumber MRI showed degenertaive changes and spinal stenosisL4-5 he is with left side weakness according to him for some time and difficulty ambulating he is with difficulty with bladder control Objective - Vital Sign Vital Signs - 12hr 11/24/20 11/24/20 11/24/20 05:01 08:14 10:00 Temperature 97.8 F 98.5 F Pulse Rate 68 81 Respiratory 20 18 18 Rate Blood Pressure 119/81 110/72 O2 Sat by Pulse 100 99 Oximetry - General Apperance Constitutional: comfortable - EENT EENT: PERRL, mucous membranes moist - Respiratory Respiratory: chest non-tender, lungs clear - Cardiovascular Cardiovascular: regular rate, normal S1, normal S2 Extremities: no peripheral edema bilat - Gastrointestinal Gastrointestinal: normoactive bowel sounds - Integumentary Integumentary: normal - Neurologic Cranial nerve examination: PERRL, EOMI Speech examination: intact Detailed motor examination: other - Laboratory Findings CBC and BMP: 11/20/20 07:52 11/21/20 08:12 Abnormal Lab Findings: Abnormal Labs 11/18/20 11/18/20 11/18/20 07:05 07:09 07:09 WBC 12.0 H RBC 5.04 H Hgb Hct Plt Count Lymph % (Auto) 2.2 L [place] % (Auto) 8.5 H Lymph # (Auto) 0.3 L [place] # (Auto) 1.0 H Seg Neutrophils % 89.0 H Seg Neutrophils # 10.7 H D-Dimer ABG pH POC ABG pCO2 POC ABG pO2 ABG pO2 ABG Base Excess ABG Oxyhemoglobin ABG Sodium ABG Chloride ABG Glucose Oxyhemoglobin Potassium Chloride BUN Creatinine Glucose 66 L POC Glucose Calcium 8.3 L Total Creatine Kinase 200 H Arterial Blood Glucose Arterial Blood Ionized Calcium Vancomycin Trough 11/18/20 11/18/20 11/18/20 17:02 17:02 18:52 WBC RBC 5.41 H Hgb 15.4 H Hct 45.7 H Plt Count 120 L Lymph % (Auto) 4.0 L [place] % (Auto) Lymph # (Auto) 0.4 L [place] # (Auto) Seg Neutrophils % 89.0 H Seg Neutrophils # 9.4 H D-Dimer 1161.92 H ABG pH POC ABG pCO2 POC ABG pO2 ABG pO2 71.1 L ABG Base Excess -3.8 L ABG Oxyhemoglobin ABG Sodium ABG Chloride ABG Glucose Oxyhemoglobin 93.7 L Potassium Chloride BUN Creatinine Glucose POC Glucose Calcium Total Creatine Kinase Arterial Blood Glucose Arterial Blood Ionized Calcium Vancomycin Trough 11/18/20 11/19/20 11/19/20 19:28 03:57 05:16 WBC RBC Hgb Hct Plt Count Lymph % (Auto) [place] % (Auto) Lymph # (Auto) [place] # (Auto) Seg Neutrophils % Seg Neutrophils # D-Dimer ABG pH 7.482 H POC ABG pCO2 26.7 L POC ABG pO2 142.7 H ABG pO2 ABG Base Excess ABG Oxyhemoglobin 98.5 H ABG Sodium 135.9 L ABG Chloride 108.0 H ABG Glucose 119 H Oxyhemoglobin Potassium Chloride BUN Creatinine Glucose POC Glucose 118 H 123 H Calcium Total Creatine Kinase Arterial Blood Glucose 119 H Arterial Blood Ionized Calcium 4.5 L Vancomycin Trough 11/19/20 11/19/20 11/19/20 06:47 09:36 12:20 WBC RBC Hgb Hct Plt Count Lymph % (Auto) [place] % (Auto) Lymph # (Auto) [place] # (Auto) Seg Neutrophils % Seg Neutrophils # D-Dimer ABG pH POC ABG pCO2 POC ABG pO2 ABG pO2 ABG Base Excess ABG Oxyhemoglobin ABG Sodium ABG Chloride ABG Glucose Oxyhemoglobin Potassium 3.5 L Chloride BUN 6 L Creatinine 0.6 L Glucose 119 H POC Glucose 113 H 111 H Calcium 8.0 L Total Creatine Kinase 2179 H Arterial Blood Glucose Arterial Blood Ionized Calcium Vancomycin Trough 11/19/20 11/20/20 11/20/20 21:36 03:13 05:24 WBC RBC Hgb Hct Plt Count Lymph % (Auto) [place] % (Auto) Lymph # (Auto) [place] # (Auto) Seg Neutrophils % Seg Neutrophils # D-Dimer ABG pH POC ABG pCO2 POC ABG pO2 127.4 H 109.0 H ABG pO2 ABG Base Excess ABG Oxyhemoglobin ABG Sodium ABG Chloride 108.0 H 108.0 H ABG Glucose 133 H 108 H Oxyhemoglobin Potassium Chloride BUN Creatinine Glucose POC Glucose 118 H Calcium Total Creatine Kinase Arterial Blood Glucose 133 H 108 H Arterial Blood Ionized Calcium Vancomycin Trough 11/20/20 11/20/20 11/20/20 07:52 07:52 07:52 WBC RBC Hgb Hct Plt Count 103 L Lymph % (Auto) [place] % (Auto) Lymph # (Auto) [place] # (Auto) Seg Neutrophils % Seg Neutrophils # D-Dimer ABG pH POC ABG pCO2 POC ABG pO2 ABG pO2 ABG Base Excess ABG Oxyhemoglobin ABG Sodium ABG Chloride ABG Glucose Oxyhemoglobin Potassium 3.3 L Chloride 107.2 H BUN 5 L Creatinine 0.5 L Glucose 134 H POC Glucose Calcium 7.7 L Total Creatine Kinase 998 H Arterial Blood Glucose Arterial Blood Ionized Calcium Vancomycin Trough 11/20/20 11/20/20 11/21/20 17:38 23:13 01:12 WBC RBC Hgb Hct Plt Count Lymph % (Auto) [place] % (Auto) Lymph # (Auto) [place] # (Auto) Seg Neutrophils % Seg Neutrophils # D-Dimer ABG pH POC ABG pCO2 POC ABG pO2 ABG pO2 ABG Base Excess ABG Oxyhemoglobin ABG Sodium ABG Chloride ABG Glucose Oxyhemoglobin Potassium Chloride BUN Creatinine Glucose POC Glucose 111 H 112 H Calcium Total Creatine Kinase Arterial Blood Glucose Arterial Blood Ionized Calcium Vancomycin Trough < 4.0 L 11/21/20 11/21/20 11/21/20 04:08 08:12 11:51 WBC RBC Hgb Hct Plt Count Lymph % (Auto) [place] % (Auto) Lymph # (Auto) [place] # (Auto) Seg Neutrophils % Seg Neutrophils # D-Dimer ABG pH POC ABG pCO2 POC ABG pO2 130.4 H ABG pO2 ABG Base Excess ABG Oxyhemoglobin ABG Sodium ABG Chloride 109.0 H ABG Glucose 126 H Oxyhemoglobin Potassium Chloride 108.7 H BUN 4 L Creatinine 0.4 L Glucose 107 H POC Glucose 111 H Calcium 8.0 L Total Creatine Kinase Arterial Blood Glucose 126 H Arterial Blood Ionized Calcium Vancomycin Trough 11/22/20 11/22/20 12:22 17:44 WBC RBC Hgb Hct Plt Count Lymph % (Auto) [place] % (Auto) Lymph # (Auto) [place] # (Auto) Seg Neutrophils % Seg Neutrophils # D-Dimer ABG pH POC ABG pCO2 POC ABG pO2 ABG pO2 ABG Base Excess ABG Oxyhemoglobin ABG Sodium ABG Chloride ABG Glucose Oxyhemoglobin Potassium Chloride BUN Creatinine Glucose POC Glucose 108 H 118 H Calcium Total Creatine Kinase Arterial Blood Glucose Arterial Blood Ionized Calcium Vancomycin Trough
[2020-11-25 01:16] VITALS: BP 116/74
--- NOTE | 2020-11-25 08:40 | Discharge Summary ---
Providers - Providers Date of Admission: 11/18/20 12:15 Attending physician: KIKO SPENCER MD 11/18/20 12:28 Consult to Physician [CONS] Routine Comment: Consulting Provider: CLAYTON SHEPPARD Physician Instructions: Reason For Exam: status epilepticus 11/18/20 17:08 Consult to Dietitian/Nutrition [CONS] Routine Physician Instructions: Reason For Exam: Reason for Consult: Write/Manage Tube Feeding 11/19/20 12:55 Consult to Dietitian/Nutrition [CONS] Routine Physician Instructions: Assess nutrtn needs, initiate, modify, manage TF Reason For Exam: Reason for Consult: Write/Manage Tube Feeding Reason for Consult: Write/Manage Tube Feeding 11/21/20 11:03 Speech Therapy Evaluation and Treat [CONS] Routine Reason For Exam: post extubation swallow eval 11/22/20 09:56 Physical Therapy Evaluation and Treat [CONS] Routine Comment: Reason For Exam: home vs snf 11/22/20 14:53 Occupational Therapy Evaluate and Treat [CONS] Routine Comment: Reason For Exam: upper body strength Primary care physician: LINOTYPER Hospitalization Reason for admission: seizure Condition: Stable Hospital course: This is a 35-year-old male with multiple sclerosis and epilepsy who presents to the emergency department on 11/18 with acute seizures (witnessed at home) and was given 2 mg of Ativan and 2 mg of diazepam until cessation after 30 minutes. In the emergency department patient was found to be tachycardic with heart rate of 146, febrile to 102 and was given IV Keppra. Patient was admitted to the hospitalist service with consults to [facility] for potential sepsis, COVID-19 PUI and seizures. Per family patient has a history of MS diagnosed at age of 16 not on any medications. Had an outpatient scheduled neuro evaluation -11/18 CXR shows patchy bilateral pulmonary infiltrates with mild improvement on the left but not worsened on the right, gaseous distention of the stomach -11/18 CTA chest shows bilateral bronchopneumonia (multifocal patchy airspace parenchymal disease left upper and both lower lobes most pronounced within the right lower lobe) -11/18 CT head shows no acute intracranial abnormality, mild diffuse cortical volume loss which is stable but appears advanced for age. No acute changes appreciated since 09/05/2019 exam -Trend CBC and BMP 11/19: Patient was intubated yesterday evening for tachycardia and respiratory distress. Ddimer was elevated and he obtained a CTA chest which was read as no PE but bronchopnemonia. His abx will be changed to cefepime from zosyn and continue vancomycin. Ntr consult for TF. Hypokalemia repleted, restarted home trileptal. Given LR bolus and fentanyl bolus in hopes to help with tachycardia. 11/20: Overnight patient had reported hunt secretions from OETT but this morning when suctioned by RT and RN there were no hunt secretions. CXR which showed interval improvement in bilateral opacities. [facility] plans to extubate tomorrow, RN to restart TF now. Will monitor and drop IVF rate if tolerating. We will replete potassium. EEG ordered for today. 11/21: Pulmonary input noted patient continues on the ventilator. Discussed with neurologist at the bedside today plan for EEG and MRI especially considering left-sided weakness. He is also readjusted the patient's seizure meds to the home dose stopping Trileptal and starting back on Vimpat as patient takes at [facility]. [employer] plans to reevaluate mechanical ventilator for possible extubation today. Leukocytosis improved if no culture growth we will discuss with crowning hammer operator about possible discontinuing antibiotics and monitoring off antibiotics. 11/22: Patient clinically stable this morning post extubation no new complaints EEG was consistent with encephalopathic process possible postictal otherwise no new issues noted patient is more awake and alert this morning. No seizure events was noted overnight. We are awaiting MRI and if negative per neurologist patient can be discharged. We will continue management outpatient follow-up with primary care physician. Covid test was negative Vimpat was adjusted by neurology to 150 mg 11/23: MRI was not done yesterday pending today. MRI of the cervical spine. Patient also noted to be significantly lethargic requires SNF placement. Again Covid test was negative we will continue on process no change in treatment plan at this time. Continue rehab. 11/24: Patient clinically stable for discharge to inpatient SNF, due to debility. MRI was unremarkable for CVA although MRI C-Spine showed, budging disc. outpatient MINDI recommendation for further evaluation. There is no clear evidence of MS excerbation. 11/25: Patient continues to improve, per nursing staff, father wants patient home and not going to SNF. Will discharge home with home health and Continue outpatient neurology management. Discussed with father, updated him on records. He will follow with his PCP who will recommend further evaluation of his Cspine findings. Status epilepticus Acute respiratory failure Fever of unknown origin Sepsis, POA (possible aspiration pneumonia) Hypokalemia Deconditioning History of multiple sclerosis Disposition: DC/TX-06 HOME UNDER HOME HLTH Final Discharge Diagnosis (Prints w/discharge instructions): SEIZURE Time spent for discharge: 35 mins Core Measure Documentation - Palliative Care Palliative Care/ Comfort Measures: Not Applicable - Core Measures Any of the following diagnoses?: none Exam - Physical Exam Narrative exam: General appearance: Present: no acute distress, awake - EENT Eyes: Present: PERRL, EOM intact no nystagmus ENT: clear oral mucosa - Neck Neck: Present: normal ROM - Respiratory Respiratory effort: normal Respiratory: bilateral: CTA - Cardiovascular Rhythm: regular Heart Sounds: Present: S1 & S2. Absent: systolic murmur, diastolic murmur - Extremities Extremities: no ischemia, pulses intact, pulses symmetrical, No edema, normal temperature, normal color Peripheral Pulses: within normal limits - Abdominal General gastrointestinal: soft, non-tender, non-distended, normal bowel sounds - Integumentary Integumentary: Present: clear, warm, dry - Psychiatric Psychiatric: cooperative - Neurologic Neurologic: moves all extremities, speaks although slow. (follows commands, PERRL, (+) track/focus) - Allied Health Allied health notes reviewed: nursing, RT, social work - Constitutional Vitals: Temp Pulse Resp BP Pulse Ox 97.7 F 65 16 116/74 99 11/24/20 23:54 11/24/20 23:54 11/24/20 23:54 11/24/20 23:54 11/24/20 23:54 Plan Activity: advance as tolerated, fall precautions Diet: low fat Special Instructions: record daily weights, record daily BP diary, physical therapy, occupational therapy Additional Instructions: Continue Neurology appointment Follow up with: PRIMARY CARE, [Primary Care Provider] - 3-5 Days Prescriptions: levETIRAcetam [Keppra] 1,500 mg PO BID #900 ml Lacosamide [Vimpat] 150 mg PO BID #900 ml
[2020-11-25] MEDS: levETIRAcetam 500 MG/5 ML ORAL LIQD PO SCH (09:10)
[2020-11-25] MEDS: HEPARIN 5,000 UNIT/1 ML VIAL SUB-Q SCH (09:10)
[2020-11-25] MEDS: LACOSAMIDE 50 MG TAB PO SCH (09:10)
[2020-11-25] MEDS: ACETAMINOPHEN 325 MG TAB PO PRN (09:12)
== END 2020-11-25 15:20 | disposition home health service (06) | DRG 871 ==
LOC: ED 06:20 → IMCU 12:15 → CC1 17:31 → 4A 11-21 21:06
PROVIDERS: ADMIT Family Medicine; ATTEND Internal Medicine
PROC: 0BH17EZ Insertion of Endotracheal Airway into Trachea, Via Natural or Artificial Opening (ICD-10-PCS; principal; 2020-11-18)
PROC: 5A1945Z Respiratory Ventilation, 24-96 Consecutive Hours (ICD-10-PCS; 2020-11-18)
PROC: 4A033R1 Measurement of Arterial Saturation, Peripheral, Percutaneous Approach (ICD-10-PCS; 2020-11-19)
DX: A41.9 Sepsis, unspecified organism (principal); J96.00 Acute respiratory failure, unspecified whether with hypoxia or hypercapnia; J69.0 Pneumonitis due to inhalation of food and vomit; G40.901 Epilepsy, unspecified, not intractable, with status epilepticus; Z20.822 Contact with and (suspected) exposure to COVID-19; E87.6 Hypokalemia; G40.909 Epilepsy, unspecified, not intractable, without status epilepticus; G35 Multiple sclerosis; Z79.899 Other long term (current) drug therapy; Z79.891 Long term (current) use of opiate analgesic; Z79.01 Long term (current) use of anticoagulants
CPT/HCPCS: 36415; 36600; 70450; 70551; 71045; 71260; 72148; 74018; 80048; 80202; 81001; 82140; 82550; 82803; 82805; 82962; 83735; 84439; 84443; 85025; 85027; 85379; 87040; 87070; 87205; 87641; 90686; 93005; 94002; 94003; 95819; 96365; G0378; C9254; J0330; J0692; J1644; J1953; J2543; J2704; J3010; J3370; J3480; J7030; J7042; J7120; Q9967; U0003

== ENCOUNTER 2021-01-24 23:00 | Emergency (ER) | payer MEDICAID ==
--- NOTE | 2021-01-25 01:58 | Emergency Department Report ---
ED General Adult HPI - General Chief complaint: Fall Stated complaint: I have had seizures in the past, and I have had a few falls PUI?: No Time Seen by Provider: 01/25/21 01:50 Source: patient, EMS ( EMS documentation not available at time of chart dictation ), RN notes reviewed, old records reviewed Mode of arrival: Stretcher Limitations: No Limitations - History of Present Illness Initial comments: The patient is a 35-year-old gentleman. His past medical history includes multiple sclerosis and epilepsy. He states that he does not have a primary care doctor or neurologist. He states he moved here from [place] around 1 year ago. Patient was admitted to the medical service October 2020 for complicated course, including bilateral pneumonia, negative CT scan of the brain, respiratory failure, CTA of the chest obtained, showed no pulmonary embolism, MRI brain unremarkable, MRI l-spine showed bulging disc, neurosurgery recommended outpatient evaluation. Family wanted patient to be discharged home, and therefore, declined care home facility. The patient was discharged with physical deconditioning. Today, the patient presents to the ER with a complaint of generalized weakness for 1 month, history of seizures, last seizure was 1 month ago, and history of intermittent falls. He thinks he fell today and hit his head but he is not sure. He has no neck pain. He has no chest pain. He has no abdominal pain. He has an abrasion on his right arm. He has a chronic wound on his buttocks. He has a walker at home that he does not use. He does not have home physical therapy or rehabilitation at this time. Falls are intermittent. Weakness is chronic. It is painless. He does not have exacerbating or relieving factors. -: Gradual Improves with: none Worsens with: none - Related Data Previous Rx's Medication Instructions Recorded Last Taken Type Lacosamide [Vimpat] 150 mg PO BID #900 ml 11/22/20 Unknown Rx levETIRAcetam [Keppra] 1,500 mg PO BID #900 ml 11/22/20 Unknown Rx Allergies Allergy/AdvReac Type Severity Reaction Status Date / Time No Known Allergies Allergy Verified 02/09/18 14:00 ED Review of Systems ROS: Stated complaint: FALL, HX. MS Other details as noted in HPI Constitutional: weakness, other (Denies loss of taste and smell). denies: fever Eyes: denies: eye discharge ENT: denies: epistaxis Respiratory: denies: cough Cardiovascular: denies: chest pain Genitourinary: denies: dysuria Musculoskeletal: arthralgia Neurological: weakness Psychiatric: anxiety ED Past Medical Hx - Past Medical History Hx Congestive Heart Failure: No Hx Diabetes: No Hx GERD: No Hx Sickle Cell Disease: No Hx Headaches / Migraines: No Hx Seizures: Yes Hx Asthma: No Hx COPD: No Hx Dementia: No Hx HIV: No Additional medical history: Multiple Sclerosis,Takes 1000mg of Keppra - Surgical History Hx Coronary Stent: No Hx Open Heart Surgery: No Hx Pacemaker: No Hx Internal Defibrillator: No Hx Cholecystectomy: No Hx Appendectomy: No Hx Breast Surgery: No Additional Surgical History: Mass on chest per father - Social History Smoking Status: Smoker, Current Status Unknown - Medications Home Medications: Home Medications Medication Instructions Recorded Confirmed Last Taken Type Lacosamide [Vimpat] 150 mg PO BID #900 ml 11/22/20 Unknown Rx levETIRAcetam [Keppra] 1,500 mg PO BID #900 ml 11/22/20 Unknown Rx ED Physical Exam - General Limitations: No Limitations General appearance: alert, in no apparent distress - Head Head exam: Present: atraumatic, normocephalic - Eye Eye exam: Present: normal appearance, PERRL, EOMI, other (Visual acuity intact to finger counting, color perception, reading at a close distance). Absent: nystagmus - ENT ENT exam: Present: normal exam, normal orophraynx, mucous membranes moist, TM's normal bilaterally, normal external ear exam - Neck Neck exam: Present: normal inspection, full ROM. Absent: tenderness, meningismus - Respiratory Respiratory exam: Present: normal lung sounds bilaterally. Absent: respiratory distress, wheezes, rales, rhonchi, stridor, decreased breath sounds - Cardiovascular Cardiovascular Exam: Present: regular rate, normal rhythm, normal heart sounds. Absent: bradycardia, tachycardia, irregular rhythm, systolic murmur, diastolic murmur, rubs, gallop - GI/Abdominal GI/Abdominal exam: Present: soft. Absent: distended, tenderness, guarding, rebound, rigid, pulsatile mass - Rectal Rectal exam: Absent: normal inspection (There is a stage I sacral wound, without redness, pus or streaking. Chaperoned by Olga Puri) - Extremities Exam Extremities exam: Present: full ROM, other (2+ pulses noted in the bilateral upper and lower extremities. There is no palpable cord. negative Homans sign. Muscular compartments are soft. The pelvis is stable.). Absent: normal inspection (Abrasion noted to right elbow.), pedal edema, calf tenderness - Back Exam Back exam: Present: normal inspection. Absent: tenderness, CVA tenderness (R), CVA tenderness (L), paraspinal tenderness, vertebral tenderness - Neurological Exam Neurological exam: Present: alert, oriented X3, normal gait (The patient walks with a broad-based but steady gait.), reflexes normal, other (No facial droop. Tongue midline. Extraocular movements intact bilaterally. Facial sensation intact to light touch in V1, V2, V3 distribution bilaterally. 5 and a 5 strength in 4 extremities. Sensation intact to light touch in 4 extremities.). Absent: motor sensory deficit - Psychiatric Psychiatric exam: Present: anxious - Skin Skin exam: Present: warm, abrasion, ecchymosis ED Course Vital Signs 01/25/21 01:09 Temperature 97.7 F Pulse Rate 80 Respiratory 18 Rate Blood Pressure 110/66 O2 Sat by Pulse 100 Oximetry - Reevaluation(s) Reevaluation #1: 01/25/21 02:42 Differential diagnosis, including but not limited to: Pneumonia, urinary tract infection, history of multiple sclerosis, physical deconditioning, falls, abrasion, closed head injury, history of seizure Assessment and plan: 35-year-old gentleman, who is clinically sober, with a GCS of 15, alert to name, month, location, year, and name of the president of [facility], presenting to the ER with a complaint of subacute weakness and intermittent falls, and intermittent seizures. Patient states last seizure was 1 month ago. Patient has been having intermittent falls. The patient does ambulate at this time, and has a walker at home. He is not using his walker. He also lives at home with his father. We will check appropriate laboratory studies, urinalysis, EKG, noncontrasted CT scan of the brain. We will continue his Keppra and Vimpat. He will be given a tetanus vaccination, and lactated Ringer's. Patient is clinically sober at this time. The cervical spine is cleared through nexus and cymraes c spine rule Case management consultation ordered in computer, to have patient evaluated home for home physical therapy and rehabilitation. Given that patient has a GCS of 15, is awake, alert, oriented, sober, is able to ambulate, lives at home with her father, reports having a walker at home, and does appear to be able to care for himself at this time, do not see indication for admission at this time. His examination and history not suggestive of emergent multiple sclerosis decompensation at this time. He is able to stand without difficulty and he is also able to squat down and elevate himself with minimal difficulty. 01/25/21 03:11 01/25/21 03:[address] scan of the brain negative for acute findings. Laboratory studies unremarkable. X-rays unremarkable. No seizures noted. Patient has be en in this ER for 4 hours without clinical decompensation. Urine toxicology screen demonstrates cannabis. Patient counseled to avoid cannabis consumption. I have also gone back and discussed the patient's laboratory studies and radiology studies, and my detailed plan of care. The patient has articulated understanding, and states he has no questions. He states he can call in uber home. He also states he will start using his walker at home. ED Medical Decision Making - Lab Data Result diagrams: 01/25/21 02:37 01/25/21 02:37 Vital Signs 01/25/21 01:09 Temperature 97.7 F Pulse Rate 80 Respiratory 18 Rate Blood Pressure 110/66 O2 Sat by Pulse 100 Oximetry Lab Results 01/25/21 01/25/21 01/25/21 Range/Units 02:30 02:30 02:37 WBC 6.4 (4.5-11.0) K/mm3 RBC 4.72 (3.65-5.03) M/mm3 Hgb 13.7 (11.8-15.2) gm/dl Hct 39.6 (35.5-45.6) % MCV 84 (84-94) fl MCH 29 (28-32) pg MCHC 35 H (32-34) % RDW 15.5 H (13.2-15.2) % Plt Count 205 (140-440) K/mm3 Lymph % (Auto) 30.2 (13.4-35.0) % Republic % (Auto) 9.9 H (0.0-7.3) % Eos % (Auto) 0.6 (0.0-4.3) % Baso % (Auto) 0.4 (0.0-1.8) % Lymph # (Auto) 1.9 (1.2-5.4) K/mm3 Republic # (Auto) 0.6 (0.0-0.8) K/mm3 Eos # (Auto) 0.0 (0.0-0.4) K/mm3 Baso # (Auto) 0.0 (0.0-0.1) K/mm3 Seg Neutrophils % 58.9 (40.0-70.0) % Seg Neutrophils # 3.8 (1.8-7.7) K/mm3 PT (12.2-14.9) Sec. INR (0.87-1.13) Sodium (137-145) mmol/L Potassium (3.6-5.0) mmol/L Chloride (98-107) mmol/L Carbon Dioxide (22-30) mmol/L Anion Gap mmol/L BUN (9-20) mg/dL Creatinine (0.8-1.3) mg/dL Estimated GFR ml/min BUN/Creatinine Ratio % Glucose (75-100) mg/dL Calcium (8.4-10.2) mg/dL Magnesium (1.7-2.3) mg/dL Total Bilirubin (0.1-1.2) mg/dL AST (5-40) units/L ALT (7-56) units/L Alkaline Phosphatase (35-129) units/L Total Creatine Kinase (55-170) units/L Total Protein (6.3-8.2) g/dL Albumin (3.9-5) g/dL Albumin/Globulin Ratio % Urine Color Yellow (Yellow) Urine Turbidity Clear (Clear) Urine pH 5.0 (5.0-7.0) Ur Specific [place] 1.016 (1.003-1.030) Urine Protein <15 mg/dl (Negative) mg/dL Urine Glucose (UA) Neg (Negative) mg/dL Urine Ketones Neg (Negative) mg/dL Urine Blood Sm (Negative) Urine Nitrite Neg (Negative) Urine Bilirubin Neg (Negative) Urine Urobilinogen < 2.0 (<2.0) mg/dL Ur Leukocyte Esterase Neg (Negative) Urine WBC (Auto) 1.0 (0.0-6.0) /HPF Urine RBC (Auto) 1.0 (0.0-6.0) /HPF U Epithel Cells (Auto) 1.0 (0-13.0) /HPF Urine Mucus Few /HPF Salicylates (2.8-20.0) mg/dL Urine Opiates Screen Presumptive negative Urine Methadone Screen Presumptive negative Acetaminophen (10.0-30.0) ug/mL Ur Barbiturates Screen Presumptive negative Ur Phencyclidine Scrn Presumptive negative Ur Amphetamines Screen Presumptive negative U Benzodiazepines Scrn Presumptive negative Urine Cocaine Screen Presumptive negative U Marijuana (THC) Screen Presumptive positive Drugs of Abuse Note Disclamer Plasma/Serum Alcohol (0-0.07) % 01/25/21 01/25/21 01/25/21 Range/Units 02:37 02:37 02:37 WBC (4.5-11.0) K/mm3 RBC (3.65-5.03) M/mm3 Hgb (11.8-15.2) gm/dl Hct (35.5-45.6) % MCV (84-94) fl MCH (28-32) pg MCHC (32-34) % RDW (13.2-15.2) % Plt Count (140-440) K/mm3 Lymph % (Auto) (13.4-35.0) % Republic % (Auto) (0.0-7.3) % Eos % (Auto) (0.0-4.3) % Baso % (Auto) (0.0-1.8) % Lymph # (Auto) (1.2-5.4) K/mm3 Republic # (Auto) (0.0-0.8) K/mm3 Eos # (Auto) (0.0-0.4) K/mm3 Baso # (Auto) (0.0-0.1) K/mm3 Seg Neutrophils % (40.0-70.0) % Seg Neutrophils # (1.8-7.7) K/mm3 PT 14.3 (12.2-14.9) Sec. INR 1.05 (0.87-1.13) Sodium 139 (137-145) mmol/L Potassium 3.8 (3.6-5.0) mmol/L Chloride 100.6 (98-107) mmol/L Carbon Dioxide 30 (22-30) mmol/L Anion Gap 12 mmol/L BUN 10 (9-20) mg/dL Creatinine 0.6 L (0.8-1.3) mg/dL Estimated GFR > 60 ml/min BUN/Creatinine Ratio 17 % Glucose 83 (75-100) mg/dL Calcium 9.5 (8.4-10.2) mg/dL Magnesium (1.7-2.3) mg/dL Total Bilirubin 0.30 (0.1-1.2) mg/dL AST 20 (5-40) units/L ALT 15 (7-56) units/L Alkaline Phosphatase 73 (35-129) units/L Total Creatine Kinase (55-170) units/L Total Protein 7.4 (6.3-8.2) g/dL Albumin 4.2 (3.9-5) g/dL Albumin/Globulin Ratio 1.3 % Urine Color (Yellow) Urine Turbidity (Clear) Urine pH (5.0-7.0) Ur Specific [place] (1.003-1.030) Urine Protein (Negative) mg/dL Urine Glucose (UA) (Negative) mg/dL Urine Ketones (Negative) mg/dL Urine Blood (Negative) Urine Nitrite (Negative) Urine Bilirubin (Negative) Urine Urobilinogen (<2.0) mg/dL Ur Leukocyte Esterase (Negative) Urine WBC (Auto) (0.0-6.0) /HPF Urine RBC (Auto) (0.0-6.0) /HPF U Epithel Cells (Auto) (0-13.0) /HPF Urine Mucus /HPF Salicylates (2.8-20.0) mg/dL Urine Opiates Screen Urine Methadone Screen Acetaminophen (10.0-30.0) ug/mL Ur Barbiturates Screen Ur Phencyclidine Scrn Ur Amphetamines Screen U Benzodiazepines Scrn Urine Cocaine Screen U Marijuana (THC) Screen Drugs of Abuse Note Plasma/Serum Alcohol < 0.01 (0-0.07) % 01/25/21 01/25/21 01/25/21 Range/Units 02:37 02:37 02:37 WBC (4.5-11.0) K/mm3 RBC (3.65-5.03) M/mm3 Hgb (11.8-15.2) gm/dl Hct (35.5-45.6) % MCV (84-94) fl MCH (28-32) pg MCHC (32-34) % RDW (13.2-15.2) % Plt Count (140-440) K/mm3 Lymph % (Auto) (13.4-35.0) % Republic % (Auto) (0.0-7.3) % Eos % (Auto) (0.0-4.3) % Baso % (Auto) (0.0-1.8) % Lymph # (Auto) (1.2-5.4) K/mm3 Republic # (Auto) (0.0-0.8) K/mm3 Eos # (Auto) (0.0-0.4) K/mm3 Baso # (Auto) (0.0-0.1) K/mm3 Seg Neutrophils % (40.0-70.0) % Seg Neutrophils # (1.8-7.7) K/mm3 PT (12.2-14.9) Sec. INR (0.87-1.13) Sodium (137-145) mmol/L Potassium (3.6-5.0) mmol/L Chloride (98-107) mmol/L Carbon Dioxide (22-30) mmol/L Anion Gap mmol/L BUN (9-20) mg/dL Creatinine (0.8-1.3) mg/dL Estimated GFR ml/min BUN/Creatinine Ratio % Glucose (75-100) mg/dL Calcium (8.4-10.2) mg/dL Magnesium 2.00 (1.7-2.3) mg/dL Total Bilirubin (0.1-1.2) mg/dL AST (5-40) units/L ALT (7-56) units/L Alkaline Phosphatase (35-129) units/L Total Creatine Kinase 67 (55-170) units/L Total Protein (6.3-8.2) g/dL Albumin (3.9-5) g/dL Albumin/Globulin Ratio % Urine Color (Yellow) Urine Turbidity (Clear) Urine pH (5.0-7.0) Ur Specific [place] (1.003-1.030) Urine Protein (Negative) mg/dL Urine Glucose (UA) (Negative) mg/dL Urine Ketones (Negative) mg/dL Urine Blood (Negative) Urine Nitrite (Negative) Urine Bilirubin (Negative) Urine Urobilinogen (<2.0) mg/dL Ur Leukocyte Esterase (Negative) Urine WBC (Auto) (0.0-6.0) /HPF Urine RBC (Auto) (0.0-6.0) /HPF U Epithel Cells (Auto) (0-13.0) /HPF Urine Mucus /HPF Salicylates < 0.3 L (2.8-20.0) mg/dL Urine Opiates Screen Urine Methadone Screen Acetaminophen 5.0 L (10.0-30.0) ug/mL Ur Barbiturates Screen Ur Phencyclidine Scrn Ur Amphetamines Screen U Benzodiazepines Scrn Urine Cocaine Screen U Marijuana (THC) Screen Drugs of Abuse Note Plasma/Serum Alcohol (0-0.07) % - EKG Data -: EKG Interpreted by Ga EKG shows normal: sinus rhythm Rate: normal - EKG Data 01/25/21 03:02 EKG interpreted at 02: 5 0 Sinus rhythm, 81 bpm. Normal axis, normal intervals, high left ventricular voltage, early repolarization. Abnormal EKG. Not a STEMI. Appears unchanged from prior EKG from 11/18/2020 - Radiology Data Radiology results: pending, report reviewed, image reviewed X-ray of the right elbow negative for acute findings. X-ray the chest negative for acute findings. Critical care attestation.: If time is entered above; I have spent that time in minutes in the direct care of this critically ill patient, excluding procedure time. ED Disposition Clinical Impression: Physical deconditioning, History of seizure, History of fall, Abrasion of right arm Disposition: DC-01 TO HOME OR SELFCARE Is pt being admited?: No Does the pt Need Aspirin: No Condition: Good Additional Instructions: Do not drive or operate motor vehicles for the next 6 months, or until cleared to do so by a primary care doctor or neurologist. Follow-up with a primary care doctor or neurologist within the next 5 days. For the patient's convenience, local primary care and neurology physicians have been listed in this paperwork that he may follow-up with. Please make certain to use walker when ambulating/walking. Participate in physical activities as tolerated. A case management consultation has been placed in the computer system, for a nurse case manager or mental health social worker to call the patient at the listed phone number that he provided, and ascertain if the patient is eligible for home physical therapy and/or rehabilitation, which may assist in his overall weakness and symptoms. It is important to take seizure medications to prevent breakthrough seizures. Noncompliance with seizure medications may cause breakthrough seizures, which can cause , disability, paralysis, and loss of quality of life. The patient may take [id number] Tylenol and/or ibuprofen as needed for physical pain. The patient can wash his upper extremity abrasions with soap and water once every 12-24 hours. For the patient's convenience, his outpatient seizure medications have been refilled. Referrals: KATHY GOMEZ MD [Referring] - 3-5 Days LAKSHMI BARR MD [Staff Physician] - 3-5 Days [facility] [Provider Group] - 3-5 Days
[2021-01-25] MEDS ORDERED: levETIRAcetam 500 MG/5 ML ORAL LIQD PO STA (02:21)
[2021-01-25] MEDS ORDERED: TETANUS,DIPH,PERTUSS(ACELL) VACCINE 0.5 ML SYRINGE IM ONE (02:21)
[2021-01-25] MEDS ORDERED: LACOSAMIDE 50 MG TAB PO ONE ×2 (02:21→03:00)
[2021-01-25] MEDS ORDERED: LACTATED RINGERS 1,000 ML IV ONE (02:38)
[2021-01-25 02:49] LABS: Bilirubin,Urine NEG (Negative); Blood,Urine SM (Negative); Color,Urine Yellow (Yellow); Mucus,Urine FEW /HPF; Protein,Urine <15 mg/dL mg/dL (Negative); Urobilinogen,Urine < 2.0 mg/dL (<2.0)
--- NOTE | 2021-01-25 02:53 | XRay Report ---
RIGHT ELBOW 3 VIEWS INDICATION / CLINICAL INFORMATION: Right arm/elbow abrasion after fall. COMPARISON: None available. FINDINGS: BONES and JOINT(S): No acute fracture or subluxation. No significant arthritis. SOFT TISSUES: No significant abnormality. ADDITIONAL FINDINGS: None. IMPRESSION: 1. No acute findings. Signer Name: Lavelle Wells MD Signed: 01/25/2021 2:49 AM Workstation Name: [id number]
--- NOTE | 2021-01-25 02:54 | XRay Report ---
CHEST 1 VIEW 01/25/2021 1:42 AM INDICATION / CLINICAL INFORMATION: fall and weakness. COMPARISON: One view of the chest from 11/19/2020 FINDINGS: SUPPORT DEVICES: None. HEART / MEDIASTINUM: No significant abnormality. LUNGS / PLEURA: No significant pulmonary abnormality. No significant pleural effusion. No pneumothora x. ADDITIONAL FINDINGS: No significant additional findings. IMPRESSION: 1. No acute abnormality of the chest. Signer Name: Lavelle Wells MD Signed: 01/25/2021 2:50 AM Workstation Name: [id number]
[2021-01-25 02:58] LABS: Amphetamine Screen,Urine PRESUMPTIVE NEGATIVE; Benzodiazepines Screen,Urine PRESUMPTIVE NEGATIVE; Cannabinoid Screen,Urine PRESUMPTIVE POSITIVE; Cocaine Screen,Urine PRESUMPTIVE NEGATIVE; Methadone Screen,Urine PRESUMPTIVE NEGATIVE; Opiate Screen,Urine PRESUMPTIVE NEGATIVE
[2021-01-25] MEDS ORDERED: LACOSAMIDE 100 MG TAB PO ONE (03:00)
[2021-01-25 03:15] LABS: Basophils % (Auto) 0.4 % (0.0-1.8); Eosinophils % (Auto) 0.6 % (0.0-4.3); Hematocrit 39.6 % (35.5-45.6); Hemoglobin 13.7 gm/dl (11.8-15.2); Lymphocytes # (Auto) 1.9 K/mm3 (1.2-5.4); Lymphocytes % (Auto) 30.2 % (13.4-35.0); Mean Corpuscular HGB Conc 35 % (32-34); Mean Corpuscular Volume 84 fl (84-94); Monocytes # (Auto) 0.6 K/mm3 (0.0-0.8); Monocytes % (Auto) 9.9 % (0.0-7.3); Platelet Count 205 K/mm3 (140-440); Red Blood Count 4.72 M/mm3 (3.65-5.03); Red Cell Distribution Width 15.5 % (13.2-15.2)
--- NOTE | 2021-01-25 03:21 | Cat Scan Report ---
CT HEAD WITHOUT CONTRAST INDICATION : Fall, history of seizures and weakness. TECHNIQUE: Axial, coronal and sagittal CT imaging was performed from the skull apex through the skul l base without contrast. All CT scans at this location are performed using CT dose reduction for ALA RA by means of automated exposure control. COMPARISON: CT head without contrast from 11/18/2020 FINDINGS: PARENCHYMA: No mass, midline shift, hemorrhage, extraaxial collection or acute territorial infarctio n. Generalized atrophy is unchanged. VENTRICLES: Symmetric and normal in size. SOFT TISSUES: No significant abnormality of the included soft tissues/orbits. BONES: No acute osseous abnormality. SINUSES: No significant abnormality. ADDITIONAL FINDINGS: None. IMPRESSION: 1. No acute intracranial abnormality. Signer Name: Lavelle Wells MD Signed: 01/25/2021 3:16 AM Workstation Name: [id number]
[2021-01-25 03:22] LABS: INR 1.05 (0.87-1.13)
[2021-01-25 03:27] LABS: Alanine Aminotransferase 15 units/L (7-56); Albumin 4.2 g/dL (3.9-5); Blood Urea Nitrogen 10 mg/dL (9-20); Calcium 9.5 mg/dL (8.4-10.2); Hemolysis Index 10
[2021-01-25 03:38] LABS: BUN/Creatinine Ratio 17
[2021-01-25 03:51] VITALS: BP 113/62
--- NOTE | 2021-01-25 10:33 | Electrocardiograph Report ---
[facility] Test Date: 2021-01-25 Test Time: 02:50:28 Pat Name: BENNIE CUEVAS Department: Room: Gender: M [employer]: KAYLA : 1985 Requested By: ERIN BARRETO Order Number: [id number] Reading MD: Ciaran Atkins Measurements Intervals [place] Rate: 81 P: 84 AR: 139 QRS: 72 QRSD: 85 T: 74 QT: 347 QTc: 403 Interpretive Statements Sinus rhythm ST elevation suggests acute pericarditis vs early repolarization changes. Compared to ECG 11/18/2020 20:04:39 ST (T wave) deviation now present Sinus tachycardia no longer present Electronically Signed On 01-25-2021 10:32:27 EDT by Ciaran Atkins
== END 2021-01-25 04:57 | disposition home or self-care (01) ==
LOC: ED 23:00
DX: S50.311A Abrasion of right elbow, initial encounter (principal); G40.909 Epilepsy, unspecified, not intractable, without status epilepticus; G35 Multiple sclerosis; W19.XXXA Unspecified fall, initial encounter; Y93.89 Activity, other specified; Y92.89 Other specified places as the place of occurrence of the external cause; Y99.8 Other external cause status
CPT/HCPCS: 36415; 70450; 71045; 73080; 80053; 80307; 81001; 82550; 83735; 84443; 85025; 85610; 90471; 90715; 93005; 96360; 99285; J7120; 80320; G0480